=== PATIENT | female | born 1970 | race Caucasian/White ===

== ENCOUNTER 2016-12-03 22:11 | Emergency (ER) | payer SELFPAY ==
[2016-12-03 22:25] VITALS: TEMP 96.4
--- NOTE | 2016-12-03 22:37 | ED.PDOC ---
History of Present Illness - General Chief Complaint: Respiratory Problem Stated Complaint: cough and chest congestion Time Seen by Provider: 12/03/16 22:36 Source: patient Exam Limitations: no limitations Additional Information: Ms. Debbie Aden 46 y/o female with history of asthma/copd stated she started with dry cough on off for one week then yesterday had developed pleuritic chest pain during coughing episodes and when taking deep breaths.No ill contact no foreign travel.She stated did not report for work today. - History of Present Illness Timing/Duration: other - one week Cough Quality/Degree: dry cough Possible Cause: other - hx of asthma/copd Improving Factors: nothing Worsening Factors: nothing Associated Symptoms: muscle aches Respiratory Risk Factors: no cause identified Allergies/Adverse Reactions: Allergies Erythromycin Allergy (Verified 12/03/16 22:18) Hydromorphone [From Dilaudid] Allergy (Verified 12/03/16 22:18) Ketorolac Tromethamine [From Toradol] Allergy (Verified 12/03/16 22:18) Morphine Allergy (Verified 12/03/16 22:18) Penicillins Allergy (Verified 12/03/16 22:18) Sumatriptan [From Imitrex] Allergy (Verified 12/03/16 22:18) Home Medications: Ambulatory Orders Sulfamethoxazole-Trimethoprim [Bactrim Ds 800-160 mg] 2 tab PO BID #40 tab 08/02 Tramadol-Acetaminophen [Ultracet] 2 ea PO Q6HRS PRN #30 tab 08/02/16 Albuterol Inhaler [Ventolin Hfa Inhaler] 108 mcg IN QID #1 inh 12/03/16 Benzonatate Perles [Tessalon Perles] 200 mg PO BID #30 cap 12/03/16 Ciprofloxacin HCl 500 mg PO BID #14 tab 12/03/16 Review of Systems - Review of Systems Constitutional: States: no symptoms reported EENTM: States: no symptoms reported Respiratory: States: see HPI Cardiology: States: no symptoms reported Gastrointestinal/Abdominal: States: no symptoms reported Genitourinary: States: no symptoms reported Musculoskeletal: States: no symptoms reported Skin: States: no symptoms reported Neurological: States: no symptoms reported Endocrine: States: no symptoms reported Hematologic/Lymphatic: States: no symptoms reported Past Medical History (General) - Patient Medical History Hx Seizures: No Hx Stroke: No Hx Dementia: No Hx Asthma: No Hx of COPD: Yes Hx Cardiac Disorders: Yes - abnormal heart beat Hx Congestive Heart Failure: No Hx Pacemaker: No Hx Hypertension: No Hx Thyroid Disease: No Hx Diabetes: No Hx Gastroesophageal Reflux: No Hx Renal Disease: No Hx Cancer: No Hx of HIV: No Hx Hepatitis C: No Hx MRSA: No Surgical History: appendectomy, other - rotator cuffleft,, left ankle ( orif) - Vaccination History Hx Tetanus, Diphtheria Vaccination: No Hx Influenza Vaccination: No Hx Pneumococcal Vaccination: No - Social History Hx Tobacco Use: Yes - QUIT Hx Chewing Tobacco Use: No Hx Alcohol Use: No Hx Substance Use: No Hx Substance Use Treatment: No Hx Depression: No Hx Physical Abuse: No Hx Emotional Abuse: No Hx Suspected Abuse: No - Activities of Daily Living Patient Lives Alone: No - family Grooming Ability: Independent Eating (Feeding) Ability: Independent Toileting Ability: Independent - Female History Patient is a Female of Child Bearing Age (10 -59 yrs old): Yes Hx Last Menstrual Period: 12/03/16 Patient : No Family Medical History - Family History Father Living Status: Hx Family Congestive Heart Failure: Yes Hx Family Hypertension: Yes Hx Cardiac Disease: Yes Hx Family Diabetes: Yes Physical Exam - Physical Exam General Appearance: Alert, No apparent distress Eye Exam: bilateral normal ENT Exam: normal ENT inspection, hearing grossly normal, TMs normal, pharynx normal Neck: non-tender, full range of motion, supple, normal inspection Respiratory: chest non-tender, no respiratory distress, no accessory muscle use , other - coarse breath sounds Cardiovascular/Chest: normal peripheral pulses, regular rate, rhythm, no edema, no gallop, no JVD, no murmur Gastrointestinal/Abdominal: normal bowel sounds, non tender, soft, no organomegaly, other - obese Extremity: normal range of motion, non-tender, normal inspection, no pedal edema , no calf tenderness Neurologic: no motor/sensory deficits, alert, normal mood/affect, oriented x 3 Skin Exam: normal color, warm/dry Progress - Results/Orders Results/Orders: 12/04/16 09:00 [facility] Daily Laboratory Results WBC 12.9 K/mm3 (4.8-10.8) H 12/03/16 22:50 RBC 4.72 M/mm3 (4.20-5.40) 12/03/16 22:50 Hgb 14.3 gm/dL (12.0-16.0) 12/03/16 22:50 Hct 43.3 % (36.0-47.0) 12/03/16 22:50 MCV 91.7 fl (81.0-99.0) 12/03/16 22:50 MCH 30.2 pg (27.0-31.0) 12/03/16 22:50 MCHC 33.0 g/dL (33.0-37.0) 12/03/16 22:50 RDW 13.9 % (11.5-14.5) 12/03/16 22:50 Plt Count 266 K/mm3 (130-400) 12/03/16 22:50 MPV 8.9 fl (7.40-10.4) 12/03/16 22:50 Absolute Neuts (auto) 7.20 K/uL (1.8-6.8) H 12/03/16 22:50 Absolute Lymphs (auto) 4.50 K/uL (1.0-3.4) H 12/03/16 22:50 Absolute Monos (auto) 0.70 K/uL (0.2-0.8) 12/03/16 22:50 Absolute Eos (auto) 0.40 K/uL (0.0-0.4) 12/03/16 22:50 Absolute Basos (auto) 0.10 K/uL (0.0-0.1) 12/03/16 22:50 Neutrophils % 55.8 % (42.0-78.0) 12/03/16 22:50 Lymphocytes % 35.0 % (20.0-50.0) 12/03/16 22:50 Monocytes % 5.6 % (2.0-9.0) 12/03/16 22:50 Eosinophils % 2.8 % (1.0-5.0) 12/03/16 22:50 Basophils % 0.8 % (0.0-2.0) 12/03/16 22:50 - EKG/XRAY/CT XRAY: chest - no acute changes - Additional EKG/XRAY/Consults EKG #2: Sinus, no ST T wave changes - HR-91 Departure - Departure Clinical Impression: Pleuritic chest pain Bronchitis, acute Qualifiers: Bronchitis organism: unspecified organism Qualifier Code: (J20.9) Acute bronchitis, unspecified Time of Disposition: 23:12 Disposition: Discharge to Home or Self Care Condition: Good Departure Forms: ED Discharge - Pt. Copy, Patient Portal Self Enrollment Instructions: DI for Acute Bronchitis Referrals: Mary Alice Mancia, [employer] MANAGER [Primary Care Provider] - 1-2 Weeks Prescriptions: Ciprofloxacin HCl 500 mg PO BID #14 tab Benzonatate Perles [Tessalon Perles] 200 mg PO BID #30 cap Albuterol Inhaler [Ventolin Hfa Inhaler] 108 mcg IN QID #1 inh Home Medications: Ambulatory Orders Sulfamethoxazole-Trimethoprim [Bactrim Ds 800-160 mg] 2 tab PO BID #40 tab 08/02 Tramadol-Acetaminophen [Ultracet] 2 ea PO Q6HRS PRN #30 tab 08/02/16 Albuterol Inhaler [Ventolin Hfa Inhaler] 108 mcg IN QID #1 inh 12/03/16 Benzonatate Perles [Tessalon Perles] 200 mg PO BID #30 cap 12/03/16 Ciprofloxacin HCl 500 mg PO BID #14 tab 12/03/16 Additional Instructions: EXCUSE FROM WORK 12/03-04/2017;RETURN TO WORK 12/05/2016 without restrictions
[2016-12-03] MEDS ORDERED: IPRATROPIUM/ALBUTEROL 3 ML VIAL NEB ONE (22:39)
[2016-12-03] MEDS ORDERED: diphenhydrAMINE HCL 25 MG CAP PO ONE (22:40)
[2016-12-03] MEDS ORDERED: BENZONATATE PERLES 100 MG CAP PO ONE (22:40)
[2016-12-03] MEDS ORDERED: HYDROcodone 10MG/APAP 325MG 1 EA TAB PO ONE (22:41)
--- NOTE | 2016-12-03 22:58 | RAD ---
PROCEDURE: XR CHEST 1 VIEW HISTORY: cough COMPARISON: 11/29/2015 TECHNIQUE: Single projection of the chest was done. FINDINGS: The lung neri are well inflated . There are no discrete airspace infiltrates, pneumothoraces or pleural effusions. The pulmonary vascularity is normal. The cardiomediastinal contour is unremarkable . IMPRESSION: There is no acute pleural-parenchymal process seen in the imaged lung neri. 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
[2016-12-03] MEDS ORDERED: levoFLOXacin 500 MG TAB PO ONE (23:16)
[2016-12-03 23:18] VITALS: O2SAT 98
[2016-12-03 23:40] VITALS: BP 172/90
== END 2016-12-03 23:40 | disposition home or self-care (01) ==
LOC: ER 22:11
DX: J44.0 Chronic obstructive pulmonary disease with (acute) lower respiratory infection (principal); J20.9 Acute bronchitis, unspecified; R00.9 Unspecified abnormalities of heart beat; Z88.3 Allergy status to other anti-infective agents; Z88.0 Allergy status to penicillin; Z88.6 Allergy status to analgesic agent; Z79.899 Other long term (current) drug therapy; Z87.891 Personal history of nicotine dependence; R07.81 Pleurodynia
CPT/HCPCS: 36415; 71010; 85025; 93005; 94640; J7620; Q0163

== ENCOUNTER 2017-04-17 01:35 | Emergency (ER) | payer SELFPAY ==
[2017-04-17] MEDS ORDERED: IPRATROPIUM/ALBUTEROL 3 ML VIAL NEB ONE (01:54)
[2017-04-17] MEDS ORDERED: BENZONATATE PERLES 100 MG CAP PO ONE (01:54)
[2017-04-17] MEDS ORDERED: ACETAMINOPHEN 500 MG TAB PO ONE (01:55)
--- NOTE | 2017-04-17 01:58 | ED.PDOC ---
History of Present Illness - General Chief Complaint: Respiratory Problem Stated Complaint: Cough Time Seen by Provider: 04/17/17 01:49 Source: patient, RN notes reviewed, Vital Signs reviewed Exam Limitations: no limitations - History of Present Illness Comments: Patient presents with c/o of a nonproductive cough X 3 days. She is now having soreness in her lower ribs going around to her back. No SOB. Cough is keeping her up at night. She has a history of COPD and episodes of bronchitis. No fever or chills. Timing/Duration: constant - for 3 days Cough Quality/Degree: moderate, dry cough Possible Cause: frequent episodes - due to COPD Improving Factors: nothing Worsening Factors: nothing Associated Symptoms: chest pain/soreness, cough Allergies/Adverse Reactions: Allergies Erythromycin Allergy (Verified 12/03/16 22:18) Hydromorphone [From Dilaudid] Allergy (Verified 12/03/16 22:18) Ketorolac Tromethamine [From Toradol] Allergy (Verified 12/03/16 22:18) Morphine Allergy (Verified 12/03/16 22:18) Penicillins Allergy (Verified 12/03/16 22:18) Sumatriptan [From Imitrex] Allergy (Verified 12/03/16 22:18) Home Medications: Ambulatory Orders Benzonatate Perles [Tessalon Perles] 200 mg PO Q8HR PRN #30 cap 04/17/17 Review of Systems - Review of Systems Constitutional: States: no symptoms reported. Denies: chills, fever, malaise EENTM: States: no symptoms reported. Denies: nose congestion, throat pain Respiratory: States: cough. Denies: short of breath, stridor, wheezing Cardiology: States: no symptoms reported Gastrointestinal/Abdominal: States: no symptoms reported Musculoskeletal: States: other - chest wall/back soreness Skin: States: no symptoms reported Neurological: States: no symptoms reported All other Systems: No Change from Baseline Past Medical History (General) - Patient Medical History Hx Seizures: No Hx Stroke: No Hx Dementia: No Hx Asthma: No Hx of COPD: Yes Hx Cardiac Disorders: Yes - abnormal heart beat Hx Congestive Heart Failure: No Hx Pacemaker: No Hx Hypertension: No Hx Thyroid Disease: No Hx Diabetes: No Hx Gastroesophageal Reflux: No Hx Renal Disease: No Hx Cancer: No Hx of HIV: No Hx Hepatitis C: No Hx MRSA: No Surgical History: appendectomy - Vaccination History Hx Tetanus, Diphtheria Vaccination: No Hx Influenza Vaccination: No Hx Pneumococcal Vaccination: No Immunizations Up to Date: Yes - Social History Hx Tobacco Use: Yes - QUIT Hx Chewing Tobacco Use: No Hx Alcohol Use: No Hx Substance Use: No Hx Substance Use Treatment: No Hx Depression: No Hx Physical Abuse: No Hx Emotional Abuse: No Hx Suspected Abuse: No - Activities of Daily Living Hospice Agency (if applicable):: None - Female History Patient is a Female of Child Bearing Age (10 -59 yrs old): Yes Hx Last Menstrual Period: 12/03/16 Patient : No Family Medical History - Family History Father Living Status: Hx Family Congestive Heart Failure: Yes Hx Family Hypertension: Yes Hx Cardiac Disease: Yes Hx Family Diabetes: Yes Physical Exam - Physical Exam General Appearance: Alert, Comfortable, No apparent distress, Obese, Well Developed, Well Groomed, Well Hydrated, Well Nourished ENT Exam: hearing grossly normal Neck: non-tender, full range of motion, supple, normal inspection Respiratory: lungs clear, normal breath sounds, no respiratory distress, no accessory muscle use Cardiovascular/Chest: regular rate, rhythm, no edema, no gallop, no murmur Neurologic: alert, normal mood/affect, oriented x 3 Skin Exam: normal color, warm/dry Comments: Vital Signs 04/17/17 01:45 Temperature 97.5 F L Pulse Rate [ 106 H Right radial] Respiratory 20 Rate Blood Pressure 146/102 [Right Arm] O2 Sat by Pulse 96 Oximetry Progress - Progress Progress: 04/17/17 02:24 Patient is feeling better and coughing less with Duoneb treatment. Will give Solu-Medrol 125mg IM and d/c home with Rx for Tessalon Departure - Departure Clinical Impression: COPD exacerbation Time of Disposition: 02:26 Disposition: Discharge to Home or Self Care Condition: Good Departure Forms: ED Discharge - Pt. Copy, Patient Portal Self Enrollment Instructions: DI for Chronic Obstructive Pulmonary Disease Diet: resume usual diet Activity: increase activity as tolerated Referrals: Mary Alice Mancia NP [Primary Care Provider] - 1-2 Weeks Prescriptions: Benzonatate Perles [Tessalon Perles] 200 mg PO Q8HR PRN #30 cap PRN Reason: Cough Home Medications: Ambulatory Orders Benzonatate Perles [Tessalon Perles] 200 mg PO Q8HR PRN #30 cap 04/17/17
[2017-04-17] MEDS ORDERED: methylPREDNISolone SODIUM SUC 125 MG/2 ML VIAL IM ONE (02:24)
[2017-04-17 02:58] VITALS: BP 162/102; TEMP 98.2; O2SAT 96
== END 2017-04-17 02:43 | disposition home or self-care (01) ==
LOC: ER 01:35
DX: J44.1 Chronic obstructive pulmonary disease with (acute) exacerbation (principal); R00.9 Unspecified abnormalities of heart beat; Z88.0 Allergy status to penicillin; Z88.6 Allergy status to analgesic agent; Z88.3 Allergy status to other anti-infective agents; Z88.8 Allergy status to other drugs, medicaments and biological substances

== ENCOUNTER 2017-04-24 22:15 | Emergency (ER) | payer SELFPAY ==
--- NOTE | 2017-04-25 00:03 | ED.PDOC ---
History of Present Illness - General Chief Complaint: Headache Stated Complaint: headache Time Seen by Provider: 04/25/17 00:02 Source: patient Exam Limitations: no limitations - History of Present Illness Initial Comments: Patti Aden 47 y/o female with history of migraine head ache since she was 17 y/o stated that she had sharp right sided headache radiated to left temperoparietal area which started early this am and not getting better after taking 2 doses of ibuprofen.She used to take fiorinal when she has acute attacks and depakote as maintenance she stated stopped taking it since she did not have the headache the last 2 years.Had also nausea/vomiting several times. Timing/Duration: 4-6 hours Quality: moderate, achy, constant, sharp Head Injury Location: temporal Recent Head Trauma: no recent headache/trauma Improving Factors: nothing Worsening Factors: nothing Associated Symptoms: nausea/vomiting Allergies/Adverse Reactions: Allergies Erythromycin Allergy (Verified 12/03/16 22:18) Hydromorphone [From Dilaudid] Allergy (Verified 12/03/16 22:18) Ketorolac Tromethamine [From Toradol] Allergy (Verified 12/03/16 22:18) Morphine Allergy (Verified 12/03/16 22:18) Penicillins Allergy (Verified 12/03/16 22:18) Sumatriptan [From Imitrex] Allergy (Verified 12/03/16 22:18) Home Medications: Ambulatory Orders Benzonatate Perles [Tessalon Perles] 200 mg PO Q8HR PRN #30 cap 04/17/17 Ghaxegasas-Ewelolpgvizov-Bbbwz [Fioricet/Codeine] 1 cap PO BID PRN #20 cap 04/25 Divalproex Sodium [Depakote] 250 mg PO DAILY #30 tab 04/25/17 Review of Systems - Review of Systems Constitutional: States: no symptoms reported EENTM: States: no symptoms reported Respiratory: States: no symptoms reported Cardiology: States: no symptoms reported Gastrointestinal/Abdominal: States: no symptoms reported Genitourinary: States: no symptoms reported Musculoskeletal: States: no symptoms reported Skin: States: no symptoms reported Neurological: States: see HPI Past Medical History (General) - Patient Medical History Hx Seizures: No Hx Stroke: No Hx Dementia: No Hx Asthma: No Hx of COPD: Yes Hx Cardiac Disorders: Yes - abnormal heart beat Hx Congestive Heart Failure: No Hx Pacemaker: No Hx Hypertension: No Hx Thyroid Disease: No Hx Diabetes: No Hx Gastroesophageal Reflux: No Hx Renal Disease: No Hx Cancer: No Hx of HIV: No Hx Hepatitis C: No Hx MRSA: No Hx Other PMH: Yes - migraine headache Surgical History: appendectomy - left rotator cuff,,left ankle, other - Vaccination History Hx Tetanus, Diphtheria Vaccination: No Hx Influenza Vaccination: No Hx Pneumococcal Vaccination: No - Social History Hx Tobacco Use: Yes - QUIT Hx Chewing Tobacco Use: No Hx Alcohol Use: No Hx Substance Use: No Hx Substance Use Treatment: No Hx Depression: No Hx Physical Abuse: No Hx Emotional Abuse: No Hx Suspected Abuse: No - Female History Hx Last Menstrual Period: 04/07/17 Patient : No Family Medical History - Family History Father Living Status: Hx Family Congestive Heart Failure: Yes Hx Family Hypertension: Yes Hx Cardiac Disease: Yes Hx Family Diabetes: Yes Hx Family;Other: migraine headache both parents Physical Exam - Physical Exam General Appearance: Alert, Comfortable, No apparent distress, Other - speech fluent Eyes, Ears, Nose, Throat Exam: PERRL/EOMI, normal ENT inspection, TMs normal, pharynx normal Neck: non-tender, full range of motion, supple Cardiovascular/Chest: normal peripheral pulses, regular rate, rhythm, no murmur Respiratory: chest non-tender, lungs clear, normal breath sounds Gastrointestinal/Abdominal: normal bowel sounds, non tender, soft, no organomegaly Back Exam: normal inspection, no CVA tenderness, no vertebral tenderness Extremity: normal range of motion, non-tender, no pedal edema, no calf tenderness 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, 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: normal hearing, normal speech, PERRL Coordination/Gait: normal finger to nose, normal gait, negative Romberg's sign Motor/Sensory: no motor deficit, no sensory deficit, no pronator drift Skin Exam: warm/dry, normal color Lymphatic: no adenopathy Progress - Progress Progress: 04/25/17 00:30 Vital Signs Temp 97.8 F 04/25/17 00:01 Pulse 92 H 04/25/17 00:01 Resp 18 04/25/17 00:01 BP 124/80 04/25/17 00:01 Pulse Ox 97 04/25/17 00:01 Intake & Output 0704/24/17 04/25/17 06:59 18:59 06:59 Weight 185 lb Departure - Departure Clinical Impression: Migraine Qualifiers: Migraine type: unspecified Status migrainosus presence: without status migrainosus Intractability: not intractable Qualified Code(s): G43.909 - Migraine, unspecified, not intractable, without status migrainosus Time of Disposition: 00:33 Disposition: Discharge to Home or Self Care Condition: Fair Departure Forms: ED Discharge - Pt. Copy, Patient Portal Self Enrollment Instructions: Migraine Headaches (Alternative Therapy), Migraine -- Adult, DI for Migraine Referrals: Mary Alice Mancia NP [Primary Care Provider] - 1-2 Weeks Prescriptions: Mngpdfqlya-Obwdezalzknkx-Mmgtu [Fioricet/Codeine] 1 cap PO BID PRN #20 cap PRN Reason: Headache/Migraine Pain Divalproex Sodium [Depakote] 250 mg PO DAILY #30 tab Home Medications: Ambulatory Orders Benzonatate Perles [Tessalon Perles] 200 mg PO Q8HR PRN #30 cap 04/17/17 Hvjzdwcskx-Ynnrjkatachrn-Rnlwq [Fioricet/Codeine] 1 cap PO BID PRN #20 cap 04/25 Divalproex Sodium [Depakote] 250 mg PO DAILY #30 tab 04/25/17 Additional Instructions: FOLLOW UP WITH YOUR PRIMARY MD 04/28/2017 call for appointment
[2017-04-25 00:05] VITALS: BP 124/80; TEMP 97.8; O2SAT 97
[2017-04-25] MEDS ORDERED: BUTORPHANOL TARTRATE 2 MG/ML VIAL IM ONE (00:30)
[2017-04-25] MEDS ORDERED: PROMETHAZINE HCL INJ 25 MG/ML VIAL IM ONE (00:30)
[2017-04-25] MEDS ORDERED: DIVALPROEX SODIUM ER 500 MG TAB PO ONE (00:38)
== END 2017-04-25 01:35 | disposition home or self-care (01) ==
LOC: ER 22:15
DX: G43.909 Migraine, unspecified, not intractable, without status migrainosus (principal); J44.9 Chronic obstructive pulmonary disease, unspecified; R00.9 Unspecified abnormalities of heart beat; Z79.899 Other long term (current) drug therapy

== ENCOUNTER 2017-09-05 22:10 | Emergency (ER) | payer SELFPAY ==
[2017-09-05 22:23] VITALS: BP 137/87; TEMP 98.9; O2SAT 98
--- NOTE | 2017-09-05 22:47 | ED.PDOC ---
History of Present Illness - General Chief Complaint: ENT Problem Stated Complaint: SORE THROAT Time Seen by Provider: 09/05/17 22:46 Source: patient Exam Limitations: no limitations - History of Present Illness Initial Comments: Patti Aden 47 y/o female came to er with achy throat since yesterday got worse today painful to swallow.No fever no nausea/vomiting Timing/Duration: gradual, yesterday Severity: moderate EENT Location: throat Prearrival Treatment: no prearrival treatment Presenting Symptoms: achy throat Improving Factors: nothing Worsening Factors: eating Associated Symptoms: nasal congestion/drainage Allergies/Adverse Reactions: Allergies Erythromycin Allergy (Verified 12/03/16 22:18) Hydromorphone [From Dilaudid] Allergy (Verified 12/03/16 22:18) Ketorolac Tromethamine [From Toradol] Allergy (Verified 12/03/16 22:18) Morphine Allergy (Verified 12/03/16 22:18) Penicillins Allergy (Verified 12/03/16 22:18) Sumatriptan [From Imitrex] Allergy (Verified 12/03/16 22:18) Home Medications: Ambulatory Orders Benzonatate Perles [Tessalon Perles] 200 mg PO Q8HR PRN #30 cap 04/17/17 Jwkjddcgke-Rnlhfzglqpuun-Skrwq [Fioricet/Codeine] 1 cap PO BID PRN #20 cap 04/25 Divalproex Sodium [Depakote] 250 mg PO DAILY #30 tab 04/25/17 predniSONE 10 mg PO BID #7 tab 09/05/17 Review of Systems - Review of Systems Constitutional: States: no symptoms reported EENTM: States: see HPI Respiratory: States: no symptoms reported Cardiology: States: no symptoms reported Gastrointestinal/Abdominal: States: no symptoms reported All other Systems: Reviewed and Negative Past Medical History (General) - Patient Medical History Hx Seizures: No Hx Stroke: No Hx Dementia: No Hx Asthma: No Hx of COPD: Yes Hx Cardiac Disorders: Yes - abnormal heart beat Hx Congestive Heart Failure: No Hx Pacemaker: No Hx Hypertension: No Hx Thyroid Disease: No Hx Diabetes: Yes Hx Gastroesophageal Reflux: No Hx Renal Disease: No Hx Cancer: No Hx of HIV: No Hx Hepatitis C: No Hx MRSA: No Surgical History: appendectomy, other - ,rotator cuff,left ankle (orif) - Vaccination History Hx Tetanus, Diphtheria Vaccination: No Hx Influenza Vaccination: No Hx Pneumococcal Vaccination: No - Social History Hx Tobacco Use: Yes - QUIT Hx Chewing Tobacco Use: No Hx Alcohol Use: No Hx Substance Use: No Hx Substance Use Treatment: No Hx Depression: No Hx Physical Abuse: No Hx Emotional Abuse: No Hx Suspected Abuse: No - Female History Patient is a Female of Child Bearing Age (10 -59 yrs old): No Hx Last Menstrual Period: 04/07/17 Patient : No Family Medical History - Family History Father Family History: Unknown Living Status: Hx Family Congestive Heart Failure: Yes Hx Family Hypertension: Yes Hx Cardiac Disease: Yes Hx Family Diabetes: Yes Hx Family;Other: migraine headache both parents Physical Exam - Physical Exam General Appearance: Alert, No apparent distress Eye Exam: bilateral normal Nasal Exam: other - nasal congetion right nostril Throat Exam: normal mouth inspection, other - pharyngeal erythema Neck: full range of motion, supple, trachea midline Cardiovascular/Respiratory: regular rate, rhythm, no M/R/G Abdominal Exam: non-tender, no organomegaly Neurologic: no motor/sensory deficits, alert, oriented x 3 Skin Exam: normal color, warm/dry Progress - Progress Progress: 09/05/17 22:57 Last Vital Signs Temp 98.9 F 09/05/17 22:20 Pulse 96 H 09/05/17 22:20 Resp 18 09/05/17 22:20 BP 137/87 09/05/17 22:20 Pulse Ox 98 09/05/17 22:20 - Results/Orders Results/Orders: Laboratory Tests 09/05/17 22:30 Group A Strep DNA Negative Departure - Departure Clinical Impression: Nasal congestion Pharyngitis Qualifiers: Pharyngitis/tonsillitis etiology: unspecified etiology Qualified Code(s): J02.9 - Acute pharyngitis, unspecified Time of Disposition: 22:58 Disposition: Discharge to Home or Self Care Condition: Good Departure Forms: ED Discharge - Pt. Copy, Patient Portal Self Enrollment Instructions: DI for Viral Pharyngitis, Viral Pharyngitis Referrals: Mary Alice Mancia NP [Primary Care Provider] - 1-2 Weeks Prescriptions: predniSONE 10 mg PO BID #7 tab Home Medications: Ambulatory Orders Benzonatate Perles [Tessalon Perles] 200 mg PO Q8HR PRN #30 cap 04/17/17 Gfdvkwuuis-Dxubedgegbfqv-Birtv [Fioricet/Codeine] 1 cap PO BID PRN #20 cap 04/25 Divalproex Sodium [Depakote] 250 mg PO DAILY #30 tab 04/25/17 predniSONE 10 mg PO BID #7 tab 09/05/17 Additional Instructions: Mix 10 teaspoons of Benadryl liquid and 10 teaspoons of chloraseptic liquid then swish one teaspoon every 6 hours inside mouth for 10 seconds then spit out as needed for achy throat;Tylenol 500mg by mouth every 6 hours for pain as needed;Prescription sent to [facility]
[2017-09-05] MEDS ORDERED: DEXAMETHASONE INJ 4 MG/ML VIAL IM ONE (22:58)
== END 2017-09-05 23:27 | disposition home or self-care (01) ==
LOC: ER 22:10
DX: J02.9 Acute pharyngitis, unspecified (principal); R09.81 Nasal congestion; E11.9 Type 2 diabetes mellitus without complications; R00.9 Unspecified abnormalities of heart beat; Z88.0 Allergy status to penicillin; Z88.8 Allergy status to other drugs, medicaments and biological substances; Z87.891 Personal history of nicotine dependence
CPT/HCPCS: 87070; 87651; J1100

== ENCOUNTER 2017-09-24 17:56 | Emergency (ER) | payer SELFPAY ==
[2017-09-24] MEDS ORDERED: SODIUM CHLORIDE 0.9% 1000ML 1,000 ML IVS ONE (22:15)
[2017-09-24 22:20] VITALS: O2SAT 97
[2017-09-24] MEDS ORDERED: OXYMETAZOLINE NASAL SPRAY 15 ML BTTL BNAS PRN (22:59)
--- NOTE | 2017-09-24 23:33 | CT ---
EXAM DESCRIPTION: Abdomen/Pelvis w/Contrast CLINICAL HISTORY: 47 years Female periumbilical pain/tenderness COMPARISON: 12/05/2014. TECHNIQUE: Contiguous axial images obtained through the abdomen and pelvis following IV contrast. Reformatted images obtained. This exam was performed according to our department optimization program which includes automated exposure control, adjustment of the mA and/or kv according to patient size and/or use of iterative reconstruction technique. FINDINGS: The liver is enlarged measuring 20 cm. The spleen and pancreas appear unremarkable. No adrenal masses. The kidneys appear unremarkable. No hydronephrosis. The gallbladder is visualized. No aneurysmal dilatation of the aorta. No bowel obstruction. The appendix is nonvisualized. There is a ventral periumbilical hernia containing omental fat. This is larger than on the previous study. The herniated fat and the immediately adjacent omentum demonstrates a small amount of stranding. The possibility of strangulation or incarceration is not excluded. IMPRESSION: Periumbilical fat-containing hernia with inflammatory changes in the herniated and adjacent omental fat. This may be the cause of the patient's pain. The possibility of strangulation or incarceration cannot be excluded on the basis of CT No additional evidence of acute process Mild hepatomegaly Electronically signed by: Ivy Monique 09/24/2017 11:32 PM SURVEILLANCE SYSTEM MONITOR
--- NOTE | 2017-09-25 00:08 | ED.PDOC ---
History of Present Illness - General Chief Complaint: Abdominal Pain Stated Complaint: abd pains Time Seen by Provider: 09/24/17 22:01 Information Source: patient, RN notes reviewed, Vital Signs reviewed Additional Information: Woke up with pain in periumbilical region. 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 Worsening Factors: movement Associated Symptoms: swelling/mass in abdomen Review of Systems - Review of Systems Constitutional: States: no symptoms reported EENTM: States: no symptoms reported Respiratory: States: no symptoms reported Cardiology: States: no symptoms reported Gastrointestinal/Abdominal: States: see HPI Genitourinary: States: no symptoms reported Musculoskeletal: States: no symptoms reported Skin: States: no symptoms reported Neurological: States: no symptoms reported Endocrine: States: no symptoms reported Hematologic/Lymphatic: States: no symptoms reported Past Medical History (General) - Patient Medical History Hx Seizures: No Hx Stroke: No Hx Dementia: No Hx Asthma: No Hx of COPD: Yes Hx Cardiac Disorders: Yes - abnormal heart beat Hx Congestive Heart Failure: No Hx Pacemaker: No Hx Hypertension: No Hx Thyroid Disease: No Hx Diabetes: Yes Hx Gastroesophageal Reflux: No Hx Renal Disease: No Hx Cancer: No Hx of HIV: No Hx Hepatitis C: No Hx MRSA: No Surgical History: appendectomy, other - Vaccination History Hx Tetanus, Diphtheria Vaccination: No Hx Influenza Vaccination: No Hx Pneumococcal Vaccination: No - Social History Hx Tobacco Use: Yes - QUIT Hx Chewing Tobacco Use: No Hx Alcohol Use: No Hx Substance Use: No Hx Substance Use Treatment: No Hx Depression: No Hx Physical Abuse: No Hx Emotional Abuse: No Hx Suspected Abuse: No - Female History Hx Last Menstrual Period: 04/07/17 Patient : No Family Medical History - Family History Father Family History: Unknown Living Status: Hx Family Congestive Heart Failure: Yes Hx Family Hypertension: Yes Hx Cardiac Disease: Yes Hx Family Diabetes: Yes Hx Family;Other: migraine headache both parents Physical Exam - Physical Exam General Appearance: No apparent distress - at rest. Some tenderness with exam., Obese Eyes, Ears, Nose, Throat Exam: PERRL/EOMI, normal ENT inspection, pharynx normal Neck: non-tender, full range of motion, supple, normal inspection Respiratory: no respiratory distress, no accessory muscle use Cardiovascular/Chest: regular rate, rhythm Gastrointestinal/Abdominal: soft, tenderness - periumbilical region Back Exam: normal inspection Extremity: normal range of motion Neurologic: hand former II-XII nml as tested, alert Skin Exam: normal color Lymphatic: no adenopathy Progress - Progress Progress: 09/25/17 00:39 Pt with ventral hernia. Normal lactic acid and patient without evidence of sepsis at this time making strangulation less likely. Patient stable for discharge home with strict return precautions and guidance to call General Surgeon's office in am to arrange for further evaluation and management. - Results/Orders Results/Orders: CT Abdomen/Pelvis Report: FINDINGS: The liver is enlarged measuring 20 cm. The spleen and pancreas appear unremarkable. No adrenal masses. The kidneys appear unremarkable. No hydronephrosis. The gallbladder is visualized. No aneurysmal dilatation of the aorta. No bowel obstruction. The appendix is nonvisualized. There is a ventral periumbilical hernia containing omental fat. This is larger than on the previous study. The herniated fat and the immediately adjacent omentum demonstrates a small amount of stranding. The possibility of strangulation or incarceration is not excluded. IMPRESSION: Periumbilical fat- containing hernia with inflammatory changes in the herniated and adjacent omental fat. This may be the cause of the patient's pain. The possibility of strangulation or incarceration cannot be excluded on the basis of CT No additional evidence of acute process Mild hepatomegaly 09/24/17 22:14 Hold Metformin x 48Hrs [id number] 09/25/17 00:31 Acetamin W/Cod #3 (ER Disp) #6 [Tylenol w/CODEINE #3 (ER Dispense) #6 tablets] 1 ea PO Q4H PRN Laboratory Results - last 24 hr 09/24/17 09/24/17 09/24/17 00:15 22:46 22:46 WBC 18.3 H RBC 5.01 Hgb 15.1 Hct 45.7 MCV 91.2 MCH 30.1 MCHC 33.0 RDW 14.6 H Plt Count 334 MPV 8.7 Absolute Neuts (auto) 11.70 H Absolute Lymphs (auto) 5.00 H Absolute Monos (auto) 1.00 H Absolute Eos (auto) 0.50 H Absolute Basos (auto) 0.20 H Neutrophils % 63.8 Lymphocytes % 27.5 Monocytes % 5.2 Eosinophils % 2.5 Basophils % 1.0 Sodium 139 Potassium 4.0 Chloride 105 Carbon Dioxide 24 Anion Gap 14.0 BUN 13 Creatinine 0.76 BUN/Creatinine Ratio 17.1 Random Glucose 83 Serum Osmolality 276.8 Lactic Acid 1.1 Calcium 9.0 Total Bilirubin 0.3 AST 40 ALT 66 H Alkaline Phosphatase 90 Serum Total Protein 7.7 Albumin 3.9 Globulin 3.8 H Albumin/Globulin Ratio 1.0 L 09/24/17 22:10 Temperature 97.6 F Pulse Rate [ 101 H left] Respiratory 18 Rate Blood Pressure 154/87 [left] O2 Sat by Pulse 97 Oximetry Departure - Departure Clinical Impression: Umbilical hernia Qualifiers: Obstruction and gangrene presence: without obstruction or gangrene Qualified Code(s): K42.9 - Umbilical hernia without obstruction or gangrene Time of Disposition: 00:49 Disposition: Discharge to Home or Self Care Condition: Fair Departure Forms: ED Discharge - Pt. Copy, Patient Portal Self Enrollment Instructions: DI for Ventral Hernia Referrals: Quoc Razo MD [Active Staff] - 1-2 Days Home Medications: Ambulatory Orders Benzonatate Perles [Tessalon Perles] 200 mg PO Q8HR PRN #30 cap 04/17/17 Oenxzugzep-Pxffnlbejdqsc-Uvylh [Fioricet/Codeine] 1 cap PO BID PRN #20 cap 04/25 Divalproex Sodium [Depakote] 250 mg PO DAILY #30 tab 04/25/17 predniSONE 10 mg PO BID #7 tab 09/05/17 Additional Instructions: Call Dr. Razo's office for an appointment to follow-up regarding hernia. Return to ER if condition worsens - severe pain, fever.
[2017-09-25] MEDS ORDERED: ACETAMINOPHEN W/COD #3 TAB (ER Disp) PO PRN (00:31)
[2017-09-25 01:07] VITALS: BP 124/87; TEMP 98.3
== END 2017-09-25 01:07 | disposition home or self-care (01) ==
LOC: ER 17:56
DX: K42.9 Umbilical hernia without obstruction or gangrene (principal); J44.9 Chronic obstructive pulmonary disease, unspecified; E11.9 Type 2 diabetes mellitus without complications; Z87.891 Personal history of nicotine dependence
CPT/HCPCS: 36415; 74177; 80053; 83605; 85025; J7030

== ENCOUNTER 2017-09-26 12:44 | Emergency (ER) | payer SELFPAY ==
[2017-09-26 12:59] VITALS: TEMP 97.2
[2017-09-26] MEDS ORDERED: fentaNYL CITRATE INJ 50 MCG/ML AMP IV ONE ×2 (13:22→13:54)
--- NOTE | 2017-09-26 13:25 | ED.PDOC ---
History of Present Illness - General Chief Complaint: Abdominal Pain Stated Complaint: hernia pain Time Seen by Provider: 09/26/17 13:07 Information Source: patient, family Exam Limitations: no limitations - History of Present Illness Initial Comments: SHE WAS HERE TWO DAYS AGO AND NOTED TO HAVE HAVE AN UMBILICAL HERNIA. SHE HAS BEEN AFEBRILE BUT CONTINUES WITH PERIUMBILICAL PAIN. NOW SHE HAS DEVELOPED A CELLULITIS AROUND THE NAVEL. THE PATIENT VOICES THAT SHE HAS AN APPOINTMENT WITH DR. GREWAL IN THE NEAR FUTURE. Abdominal Pain Onset Location: periumbilical Quality: moderate Timing/Duration: 7-24 hours Improving Factors: nothing Worsening Factors: nothing Associated Symptoms: denies symptoms Review of Systems - Review of Systems Constitutional: States: no symptoms reported EENTM: States: no symptoms reported Respiratory: States: no symptoms reported Cardiology: States: no symptoms reported Gastrointestinal/Abdominal: States: abdominal pain, nausea Musculoskeletal: States: no symptoms reported Skin: States: change in color, rash Neurological: States: no symptoms reported Endocrine: States: no symptoms reported Hematologic/Lymphatic: States: no symptoms reported All other Systems: Reviewed and Negative Past Medical History (General) - Patient Medical History Hx Seizures: No Hx Stroke: No Hx Dementia: No Hx Asthma: No Hx of COPD: Yes Hx Cardiac Disorders: Yes - abnormal heart beat Hx Congestive Heart Failure: No Hx Pacemaker: No Hx Hypertension: No Hx Thyroid Disease: No Hx Diabetes: Yes Hx Gastroesophageal Reflux: No Hx Renal Disease: No Hx Cancer: No Hx of HIV: No Hx Hepatitis C: No Hx MRSA: No Surgical History: appendectomy - Vaccination History Hx Tetanus, Diphtheria Vaccination: No Hx Influenza Vaccination: No Hx Pneumococcal Vaccination: No - Social History Hx Tobacco Use: Yes Hx Chewing Tobacco Use: No Hx Alcohol Use: No Hx Substance Use: No Hx Substance Use Treatment: No Hx Depression: No Hx Physical Abuse: No Hx Emotional Abuse: No Hx Suspected Abuse: No - Female History Patient is a Female of Child Bearing Age (10 -59 yrs old): Yes Hx Last Menstrual Period: 04/07/17 Patient : No Family Medical History - Family History Father Family History: Unknown Living Status: Hx Family Congestive Heart Failure: Yes Hx Family Hypertension: Yes Hx Cardiac Disease: Yes Hx Family Diabetes: Yes Hx Family;Other: migraine headache both parents Physical Exam - Physical Exam General Appearance: Alert, Anxious, Obvious distress, Well Developed, Well Hydrated, Well Nourished Eyes, Ears, Nose, Throat Exam: PERRL/EOMI, normal ENT inspection, TMs normal, pharynx normal Neck: non-tender, full range of motion, supple Respiratory: chest non-tender, lungs clear, normal breath sounds, no respiratory distress, no accessory muscle use, respiratory distress Cardiovascular/Chest: normal peripheral pulses, regular rate, rhythm, no edema, no gallop, no JVD, no murmur Peripheral Pulses: No deficit Gastrointestinal/Abdominal: soft, no organomegaly, no pulsatile mass, tenderness , hernia - SHE HAS S SMALL HERNIA-SUPRAUMBILICAL AND HAS CIRCUMFERENTIAL ERYTHEMA THAT IS WARM TO TOUCH Rectal Exam: deferred Back Exam: normal inspection Neurologic: no motor/sensory deficits, alert, normal mood/affect, oriented x 3 Lymphatic: no adenopathy, other - THE AFOREMENTIONED CELLULTIS AROUND THE UMBILICUS. Progress - Results/Orders Results/Orders: LAB IS REPORTED AND THE WBC IS NOW 13,000, DOWN FROM TWO DAYS AGO (18,000). I ALSO REVIEWED THE CT ABDOMEN AND IT SEEMS THAT THIS IS AN UMBILICAL HERNIA THAT CONTAINS OMENTUM. I HAVE CALLED DR. CASTANEDA AND DISCUSSED THE CASE IN DETAIL. IT WAS CONCLUDED TO TREAT THIS PATIENT AN OUTPATIENT, PROVIDED THAT SHE IS ABLE TO TAKE HER ANTIBIOTIC AND THE PAIN MEDS. THE PATIENT HAS AN APPOINTMENT NEXT FRIDAY WITH DR. CASTANEDA. SHE HAS BEEN REMINDED TO RETURN TO THE ED IS THE CONDITION WORSENS. Departure - Departure Clinical Impression: Umbilical hernia Qualifiers: Obstruction and gangrene presence: without obstruction or gangrene Qualified Code(s): K42.9 - Umbilical hernia without obstruction or gangrene Cellulitis Qualifiers: Site of cellulitis of trunk: abdominal wall Time of Disposition: 14:44 Disposition: Discharge to Home or Self Care Condition: Fair Departure Forms: ED Discharge - Pt. Copy, Patient Portal Self Enrollment Instructions: DI for Abdominal Pain-Adult Diet: full liquid diet Activity: increase activity as tolerated Referrals: Mary Alice Mancia NP [Primary Care Provider] - 1-2 Weeks Prescriptions: Acetaminophen W/ Codeine [Tylenol W/ CODEINE #3] 1 ea PO Q6HR #20 Clindamycin HCl 300 mg PO Q6HR #40 cap Home Medications: Ambulatory Orders Benzonatate Perles [Tessalon Perles] 200 mg PO Q8HR PRN #30 cap 07/20/17 Vcilgdbhuo-Nitnodafnwkee-Aqjvv [Fioricet/Codeine] 1 cap PO BID PRN #20 cap 04/25 Divalproex Sodium [Depakote] 250 mg PO DAILY #30 tab 04/25/17 predniSONE 10 mg PO BID #7 tab 09/05/17 Acetaminophen W/ Codeine [Tylenol W/ CODEINE #3] 1 ea PO Q6HR #20 09/26/17 Clindamycin HCl 300 mg PO Q6HR #40 cap 09/26/17
[2017-09-26] MEDS ORDERED: CLINDAMYCIN IV 900MG 900 MG in PREMIX BAG 1 BAG IVPB ONE (14:38)
[2017-09-26] MEDS ORDERED: CLINDAMYCIN IV 900MG 50 ML IVPB ONE (14:40)
[2017-09-26 15:12] VITALS: BP 144/89; O2SAT 97
== END 2017-09-26 15:12 | disposition home or self-care (01) ==
LOC: ER 12:44
DX: K42.9 Umbilical hernia without obstruction or gangrene (principal); L03.311 Cellulitis of abdominal wall; J44.9 Chronic obstructive pulmonary disease, unspecified; E11.9 Type 2 diabetes mellitus without complications; R00.9 Unspecified abnormalities of heart beat; Z87.891 Personal history of nicotine dependence
CPT/HCPCS: 36415; 80053; 85025; 87040; J3010; J3490

== ENCOUNTER 2017-10-04 18:25 | Emergency (ER) | payer SELFPAY ==
[2017-10-04 19:32] VITALS: O2SAT 96
--- NOTE | 2017-10-04 21:02 | ED.PDOC ---
History of Present Illness - General Chief Complaint: Abdominal Pain Stated Complaint: hernia pain, N/V Time Seen by Provider: 10/04/17 21:01 Source: patient Exam Limitations: no limitations Additional Information: PT HAD UMBILICAL HERNIA DX'D 09/24/2017. CT PERFORMED WHICH SHOWED UMBILICAL HERNIA WITH POSSIBLE INCARCERATION AND WBC 18. WAS SEEN AGAIN 09/26 WITH REDNESS AND CELLULITIS TO THE ABDOMINAL WALL. STARTED ON ABX. STATES SHE'S NO BETTER. - History of Present Illness Timing/Duration: other - 2 WEEKS Severity: moderate Improving Factors: nothing Worsening Factors: nothing Associated Symptoms: denies symptoms Allergies/Adverse Reactions: Allergies Erythromycin Allergy (Verified 10/04/17 19:32) Hydromorphone [From Dilaudid] Allergy (Verified 10/04/17 19:32) Ketorolac Tromethamine [From Toradol] Allergy (Verified 10/04/17 19:32) Morphine Allergy (Verified 10/04/17 19:32) Penicillins Allergy (Verified 10/04/17 19:32) Sumatriptan [From Imitrex] Allergy (Verified 10/04/17 19:32) Home Medications: Ambulatory Orders Benzonatate Perles [Tessalon Perles] 200 mg PO Q8HR PRN #30 cap 04/17/17 Azxkgukxeg-Zujwomnynmzcy-Obhjx [Fioricet/Codeine] 1 cap PO BID PRN #20 cap 04/25 Divalproex Sodium [Depakote] 250 mg PO DAILY #30 tab 04/25/17 predniSONE 10 mg PO BID #7 tab 09/05/17 Acetaminophen W/ Codeine [Tylenol W/ CODEINE #3] 1 ea PO Q6HR #20 09/26/17 Clindamycin HCl 300 mg PO Q6HR #40 cap 09/26/17 Acetaminophen W/ Codeine [Tylenol W/ CODEINE #3] 1 ea PO Q6HR PRN #24 10/04/17 Review of Systems - Review of Systems Constitutional: Denies: chills, fever EENTM: States: no symptoms reported Respiratory: States: no symptoms reported Cardiology: States: no symptoms reported Gastrointestinal/Abdominal: States: abdominal pain, nausea. Denies: diarrhea, vomiting Genitourinary: States: no symptoms reported Musculoskeletal: States: no symptoms reported Skin: States: no symptoms reported Neurological: States: no symptoms reported Endocrine: States: no symptoms reported Hematologic/Lymphatic: States: no symptoms reported Past Medical History (General) - Patient Medical History Hx Seizures: No Hx Stroke: No Hx Dementia: No Hx Asthma: No Hx of COPD: Yes Hx Cardiac Disorders: Yes - abnormal heart beat Hx Congestive Heart Failure: No Hx Pacemaker: No Hx Hypertension: No Hx Thyroid Disease: No Hx Diabetes: Yes Hx Gastroesophageal Reflux: No Hx Renal Disease: No Hx Cancer: No Hx of HIV: No Hx Hepatitis C: No Hx MRSA: No Surgical History: appendectomy - Vaccination History Hx Tetanus, Diphtheria Vaccination: No Hx Influenza Vaccination: No Hx Pneumococcal Vaccination: No - Social History Hx Tobacco Use: Yes Hx Chewing Tobacco Use: No Hx Alcohol Use: No Hx Substance Use: No Hx Substance Use Treatment: No Hx Depression: No Hx Physical Abuse: No Hx Emotional Abuse: No Hx Suspected Abuse: No - Female History Hx Last Menstrual Period: 04/07/17 Patient : No Family Medical History - Family History Father Family History: Unknown Living Status: Hx Family Congestive Heart Failure: Yes Hx Family Hypertension: Yes Hx Cardiac Disease: Yes Hx Family Diabetes: Yes Hx Family;Other: migraine headache both parents Physical Exam - Physical Exam General Appearance: Obese, Other - UNCOMFORTABLE, NAD Eye Exam: bilateral normal Ears, Nose, Throat: normal ENT inspection, normal pharynx Neck: non-tender, supple Respiratory: lungs clear, normal breath sounds Cardiovascular/Chest: regular rate, rhythm, no murmur Gastrointestinal/Abdominal: normal bowel sounds, no organomegaly, other - MORBIDLY OBESE, HERNIA PALPATED SUPRAUMBILICAL AREA, MOD TTP, NO ABDOMINAL WALL REDNESS, DIFFICULT TO ASSESS BUT FEELS FIRM AND NON REDUCABLE. Back Exam: normal inspection, no CVA tenderness Extremity: normal range of motion, normal inspection Neurologic: alert, normal mood/affect Skin Exam: normal color, warm/dry Lymphatic: no adenopathy Progress - Progress Progress: 10/04/17 22:59 PAIN IS BETTER, VSS - EKG/XRAY/CT CT: ABDOMEN: FAT CONTAINING HERNIA, STRANDING HAS RESOLVED, NO INCARCERATION Departure - Departure Clinical Impression: Umbilical hernia Qualifiers: Obstruction and gangrene presence: without obstruction or gangrene Qualified Code(s): K42.9 - Umbilical hernia without obstruction or gangrene Time of Disposition: 23:02 Disposition: Discharge to Home or Self Care Condition: Good Departure Forms: ED Discharge - Pt. Copy, Patient Portal Self Enrollment Instructions: DI for Abdominal Pain-Adult Referrals: Mary Alice Mancia NP [Primary Care Provider] - 1-2 Weeks Prescriptions: Acetaminophen W/ Codeine [Tylenol W/ CODEINE #3] 1 ea PO Q6HR PRN #24 PRN Reason: Pain Home Medications: Ambulatory Orders Benzonatate Perles [Tessalon Perles] 200 mg PO Q8HR PRN #30 cap 04/17/17 Bxdpwjcwyg-Qdsglipamnujo-Omgys [Fioricet/Codeine] 1 cap PO BID PRN #20 cap 04/25 Divalproex Sodium [Depakote] 250 mg PO DAILY #30 tab 04/25/17 predniSONE 10 mg PO BID #7 tab 09/05/17 Acetaminophen W/ Codeine [Tylenol W/ CODEINE #3] 1 ea PO Q6HR #20 09/26/17 Clindamycin HCl 300 mg PO Q6HR #40 cap 09/26/17 Acetaminophen W/ Codeine [Tylenol W/ CODEINE #3] 1 ea PO Q6HR PRN #24 10/04/17
[2017-10-04] MEDS ORDERED: PROMETHAZINE HCL INJ 25 MG/ML VIAL ONE (21:36)
[2017-10-04] MEDS ORDERED: SODIUM CHLORIDE 0.9% 50ML 50 ML ONE (21:37)
[2017-10-04] MEDS: fentaNYL CITRATE INJ 50 MCG/ML AMP IV ONE (21:55)
[2017-10-04] MEDS: PROMETHAZINE HCL INJ 12.5 MG in SODIUM CHLORIDE 0.9% 50ML 50 ML IVPB ONE (21:55)
--- NOTE | 2017-10-04 22:20 | CT ---
EXAM DESCRIPTION: Abdoment/Pelvis w/o Contrast CLINICAL HISTORY: INCARCERATED UMBILICAL HERNIA COMPARISON: None Available TECHNIQUE: Contiguous axial images of the abdomen and pelvis were obtained followed by reconstruction images. This exam was performed according to our departmental dose-optimization program, which includes automated exposure control, adjustment of the mA and/or kV according to patient size and/or use of iterative reconstruction technique. FINDINGS: There is atherosclerosis. There is an umbilical hernia with fatty component only. The liver, spleen, pancreas and kidneys are within normal limits. There is no hydronephrosis or renal stones. The gallbladder is unremarkable by CT criteria. Adrenal glands are within normal limits. Aorta is of normal caliber and tapering. There is no free fluid in the abdomen or pelvis. There is no bowel obstruction. There is no stranding of the mesenteric fat to suggest an inflammatory response. The appendix was not visualized. There is no pericecal inflammation. IMPRESSION: No acute intra-abdominal abnormality. Umbilical hernia with fatty component only. Electronically signed by: Jed Abbott MD 10/04/2017 10:19 PM [facility]
[2017-10-05 00:36] VITALS: BP 155/77; TEMP 97.9
== END 2017-10-05 00:36 | disposition home or self-care (01) ==
LOC: ER 18:25
DX: K42.9 Umbilical hernia without obstruction or gangrene (principal); Z87.891 Personal history of nicotine dependence; J44.9 Chronic obstructive pulmonary disease, unspecified; E11.9 Type 2 diabetes mellitus without complications; I49.9 Cardiac arrhythmia, unspecified
CPT/HCPCS: 36415; 74176; 80053; 85025; A4216; J2550; J3010

== ENCOUNTER 2017-10-15 22:44 | Emergency (ER) | payer SELFPAY ==
--- NOTE | 2017-10-15 22:55 | ED.PDOC ---
History of Present Illness - General Chief Complaint: Skin/Abrasion/Tear Stated Complaint: drainage surgical site Time Seen by Provider: 10/15/17 22:53 Source: patient Exam Limitations: no limitations - History of Present Illness Initial Comments: Patti Aden 41 y/o female had recent laparoscopic surgery 10/09/2017 for umbilical hernia repair and noted some purplish drainage incision site. Denies fever ,chills or redness on the area.Had good bowel movement .No dysuria or/ hematuria. Timing/Duration: this morning Severity: mild Location: torso Improving Factors: nothing, eating Associated Symptoms: denies symptoms, other - see hpi Allergies/Adverse Reactions: Allergies Erythromycin Allergy (Verified 10/15/17 23:04) Hydromorphone [From Dilaudid] Allergy (Verified 10/15/17 23:04) Ketorolac Tromethamine [From Toradol] Allergy (Verified 10/15/17 23:04) Morphine Allergy (Verified 10/15/17 23:04) Penicillins Allergy (Verified 10/15/17 23:04) Sumatriptan [From Imitrex] Allergy (Verified 10/15/17 23:04) Home Medications: Ambulatory Orders Benzonatate Perles [Tessalon Perles] 200 mg PO Q8HR PRN #30 cap 04/17/17 Uwnvsqopfk-Doydwqowowsjj-Lraet [Fioricet/Codeine] 1 cap PO BID PRN #20 cap 04/25 Divalproex Sodium [Depakote] 250 mg PO DAILY #30 tab 04/25/17 predniSONE 10 mg PO BID #7 tab 09/05/17 Acetaminophen W/ Codeine [Tylenol W/ CODEINE #3] 1 ea PO Q6HR #20 09/26/17 Clindamycin HCl 300 mg PO Q6HR #40 cap 09/26/17 Acetaminophen W/ Codeine [Tylenol W/ CODEINE #3] 1 ea PO Q6HR PRN #24 10/04/17 Review of Systems - Review of Systems Constitutional: States: no symptoms reported EENTM: States: no symptoms reported Respiratory: States: no symptoms reported Cardiology: States: no symptoms reported Skin: States: see HPI All other Systems: Reviewed and Negative, No Change from Baseline Past Medical History (General) - Patient Medical History Hx Seizures: No Hx Stroke: No Hx Dementia: No Hx Asthma: No Hx of COPD: Yes Hx Cardiac Disorders: Yes - abnormal heart beat Hx Congestive Heart Failure: No Hx Pacemaker: No Hx Hypertension: No Hx Thyroid Disease: No Hx Diabetes: Yes Hx Gastroesophageal Reflux: No Hx Renal Disease: No Hx Cancer: No Hx of HIV: No Hx Hepatitis C: No Hx MRSA: No Hx Other PMH: Yes - migraine headaches Surgical History: appendectomy, other - recent umbilical hernia repair,left rotator cuff ,left ankle - Vaccination History Hx Tetanus, Diphtheria Vaccination: No Hx Influenza Vaccination: No Hx Pneumococcal Vaccination: No - Social History Hx Tobacco Use: Yes Hx Chewing Tobacco Use: No Hx Alcohol Use: No Hx Substance Use: No Hx Substance Use Treatment: No Hx Depression: No Hx Physical Abuse: No Hx Emotional Abuse: No Hx Suspected Abuse: No - Female History Hx Last Menstrual Period: 04/07/17 Patient : No Family Medical History - Family History Father Family History: Unknown Living Status: Hx Family Congestive Heart Failure: Yes Hx Family Hypertension: Yes Hx Cardiac Disease: Yes Hx Family Diabetes: Yes Hx Family;Other: migraine headache both parents Physical Exam - Physical Exam General Appearance: Alert, Comfortable, No apparent distress Eyes, Ears, Nose, Throat Exam: normal ENT inspection Neck: non-tender, supple Cardiovascular/Chest: normal peripheral pulses, regular rate, rhythm, no murmur Respiratory: lungs clear, normal breath sounds Gastrointestinal/Abdominal: non tender, soft Back Exam: no CVA tenderness Extremity: no pedal edema, no calf tenderness Neurologic: alert, oriented x 3 Skin Exam: warm/dry, normal color Skin Problem Location: torso Skin Character: other - recent umbilical hernia repair-incision site clear no erythema ,non tender mild drainage seroma Progress - Progress Progress: 10/15/17 23:19 Last Vital Signs Temp 98.9 F 10/15/17 23:05 Pulse 104 H 10/15/17 23:05 Resp 20 10/15/17 23:05 BP 144/99 10/15/17 23:05 Pulse Ox 96 10/15/17 23:05 Departure - Departure Clinical Impression: Seroma, postoperative Qualifiers: Surgical complication system/body Area: skin Procedure type: non-dermatologic Qualified Code(s): L76.34 - Postprocedural seroma of skin and subcutaneous tissue following other procedure Time of Disposition: 23:20 Disposition: Discharge to Home or Self Care Condition: Good Departure Forms: ED Discharge - Pt. Copy, Patient Portal Self Enrollment Instructions: DI for Wound Infection Referrals: Mary Alice Mancia NP [Primary Care Provider] - 1-2 Weeks Home Medications: Ambulatory Orders Benzonatate Perles [Tessalon Perles] 200 mg PO Q8HR PRN #30 cap 04/17/17 Ayvqlfezco-Hotngpmgbkljz-Mywhy [Fioricet/Codeine] 1 cap PO BID PRN #20 cap 04/25 Divalproex Sodium [Depakote] 250 mg PO DAILY #30 tab 04/25/17 predniSONE 10 mg PO BID #7 tab 09/05/17 Acetaminophen W/ Codeine [Tylenol W/ CODEINE #3] 1 ea PO Q6HR #20 09/26/17 Clindamycin HCl 300 mg PO Q6HR #40 cap 09/26/17 Acetaminophen W/ Codeine [Tylenol W/ CODEINE #3] 1 ea PO Q6HR PRN #24 10/04/17 Additional Instructions: Keep appointment with surgeon 10/20/2017
[2017-10-15 23:44] VITALS: BP 141/84; TEMP 98.2; O2SAT 92
== END 2017-10-15 23:45 | disposition home or self-care (01) ==
LOC: ER 22:44
DX: L76.34 Postprocedural seroma of skin and subcutaneous tissue following other procedure (principal); J44.9 Chronic obstructive pulmonary disease, unspecified; Z87.891 Personal history of nicotine dependence; E11.9 Type 2 diabetes mellitus without complications

== ENCOUNTER 2018-01-13 17:19 | Emergency (ER) | payer SELFPAY ==
--- NOTE | 2018-01-13 19:28 | ED.PDOC ---
History of Present Illness - General Chief Complaint: ENT Problem Stated Complaint: sore throat Time Seen by Provider: 01/13/18 18:35 Source: patient, RN notes reviewed, Vital Signs reviewed - History of Present Illness Timing/Duration: gradual, this morning EENT Location: ear (R), nose, throat Improving Factors: nothing Worsening Factors: nothing Associated Symptoms: cough, nasal congestion/drainage, sinus infection, sore throat Allergies/Adverse Reactions: Allergies Erythromycin Allergy (Verified 10/15/17 23:04) Hydromorphone [From Dilaudid] Allergy (Verified 10/15/17 23:04) Ketorolac Tromethamine [From Toradol] Allergy (Verified 10/15/17 23:04) Morphine Allergy (Verified 10/15/17 23:04) Penicillins Allergy (Verified 10/15/17 23:04) Sumatriptan [From Imitrex] Allergy (Verified 10/15/17 23:04) Home Medications: Ambulatory Orders Acetaminophen W/ Codeine [Tylenol W/ CODEINE #3] 1 ea PO Q6HR #20 09/26/17 Symbicort 160-4.5 Mcg/Act 01/13/18 levoFLOXacin [Levaquin] 500 mg PO DAILY 5 Days #5 tab 01/13/18 Review of Systems - Review of Systems Constitutional: States: no symptoms reported EENTM: States: ear pain, nose pain, nose congestion, throat pain Respiratory: States: cough Cardiology: States: no symptoms reported Gastrointestinal/Abdominal: States: no symptoms reported Genitourinary: States: no symptoms reported Musculoskeletal: States: no symptoms reported Skin: States: no symptoms reported Past Medical History (General) - Patient Medical History Hx Seizures: No Hx Stroke: No Hx Dementia: No Hx Asthma: No Hx of COPD: Yes Hx Cardiac Disorders: Yes - abnormal heart beat Hx Congestive Heart Failure: No Hx Pacemaker: No Hx Hypertension: No Hx Thyroid Disease: No Hx Diabetes: Yes Hx Gastroesophageal Reflux: No Hx Renal Disease: No Hx Cancer: No Hx of HIV: No Hx Hepatitis C: No Hx MRSA: No - Vaccination History Hx Tetanus, Diphtheria Vaccination: Yes Hx Influenza Vaccination: Yes Hx Pneumococcal Vaccination: No - Social History Hx Tobacco Use: Yes Hx Chewing Tobacco Use: No Hx Alcohol Use: No Hx Substance Use: No Hx Substance Use Treatment: No Hx Depression: No Hx Physical Abuse: No Hx Emotional Abuse: No Hx Suspected Abuse: No - Female History Patient is a Female of Child Bearing Age (10 -59 yrs old): Yes Hx Last Menstrual Period: 04/07/17 Patient : No Family Medical History - Family History Father Family History: Unknown Living Status: Hx Family Congestive Heart Failure: Yes Hx Family Hypertension: Yes Hx Cardiac Disease: Yes Hx Family Diabetes: Yes Hx Family;Other: migraine headache both parents Physical Exam - Physical Exam General Appearance: Alert, Comfortable, Well Developed, Well Groomed, Well Hydrated, Well Nourished Eye Exam: bilateral normal Ear Exam: right ear: TM red, TM bulging Nasal Exam: discharge, sinus tenderness Throat Exam: normal mouth inspection Neck: non-tender, full range of motion Cardiovascular/Respiratory: regular rate, rhythm, no M/R/G, normal peripheral pulses Abdominal Exam: non-tender, no organomegaly, no hernia Neurologic: no motor/sensory deficits, alert Skin Exam: normal color Progress - Progress Progress: 01/13/18 19:33 abx given for otitis media Departure - Departure Clinical Impression: Otitis media Qualifiers: Otitis media type: suppurative Chronicity: acute Laterality: right Recurrence: not specified as recurrent Spontaneous tympanic membrane rupture: without spontaneous rupture Qualified Code(s): H66.001 - Acute suppurative otitis media without spontaneous rupture of ear drum, right ear Sinusitis Qualifiers: Sinusitis location: maxillary Chronicity: acute Recurrence: non-recurrent Qualified Code(s): J01.00 - Acute maxillary sinusitis, unspecified Time of Disposition: 19:30 Disposition: Discharge to Home or Self Care Condition: Good Departure Forms: ED Discharge - Pt. Copy, Patient Portal Self Enrollment Diet: regular diet Activity: increase activity as tolerated Referrals: Mary Alice Mancia NP [Primary Care Provider] - 1-2 Weeks Prescriptions: levoFLOXacin [Levaquin] 500 mg PO DAILY 5 Days #5 tab Home Medications: Ambulatory Orders Acetaminophen W/ Codeine [Tylenol W/ CODEINE #3] 1 ea PO Q6HR #20 09/26/17 Symbicort 160-4.5 Mcg/Act 01/13/18 levoFLOXacin [Levaquin] 500 mg PO DAILY 5 Days #5 tab 01/13/18
[2018-01-13] MEDS ORDERED: levoFLOXacin 500 MG TAB PO ONE (19:48)
[2018-01-13 19:58] VITALS: BP 152/92; TEMP 98.2; O2SAT 96
== END 2018-01-13 19:58 | disposition home or self-care (01) ==
LOC: ER 17:19
DX: H66.001 Acute suppurative otitis media without spontaneous rupture of ear drum, right ear (principal); J01.00 Acute maxillary sinusitis, unspecified; E11.9 Type 2 diabetes mellitus without complications; R00.9 Unspecified abnormalities of heart beat

== ENCOUNTER 2018-02-13 16:22 | Emergency (ER) | payer SELFPAY ==
[2018-02-13] MEDS ORDERED: traMADol 37.5MG/APAP 325MG 1 EA TAB PO ONE (16:47)
[2018-02-13 16:48] VITALS: BP 162/97; TEMP 98.2; O2SAT 98
--- NOTE | 2018-02-13 16:50 | ED.PDOC ---
History of Present Illness - General Chief Complaint: Abdominal Pain Stated Complaint: abdominal pain, nausea Time Seen by Provider: 02/13/18 16:47 Information Source: patient Exam Limitations: no limitations - History of Present Illness Initial Comments: LEFT PERIUMBILICAL PAIN FOR TWO OR THREE WEEKS. NOW ALSO VOICES NAUSEA AND VOMIT FOR ONE DAY. NO DIARRHEA AND NO FEVER. SHE HAD AN UMBILICAL HERNIA REPAIR 6 MONTHS AGO, SHE IS AFRAID IS BACK. Abdominal Pain Onset Location: periumbilical Pain Radiation: no radiation Quality: moderate, intermittent, sharpness Timing/Duration: other - THREE WEEKS Improving Factors: nothing Worsening Factors: nothing Review of Systems - Review of Systems Constitutional: States: no symptoms reported EENTM: States: no symptoms reported Respiratory: States: no symptoms reported Cardiology: States: no symptoms reported Gastrointestinal/Abdominal: States: abdominal pain, nausea, vomiting Musculoskeletal: States: no symptoms reported Skin: States: no symptoms reported Neurological: States: no symptoms reported Endocrine: States: no symptoms reported Hematologic/Lymphatic: States: no symptoms reported Past Medical History (General) - Patient Medical History Hx Seizures: No Hx Stroke: No Hx Dementia: No Hx Asthma: No Hx of COPD: Yes Hx Cardiac Disorders: Yes - abnormal heart beat Hx Congestive Heart Failure: No Hx Pacemaker: No Hx Hypertension: No Hx Thyroid Disease: No Hx Diabetes: Yes Hx Gastroesophageal Reflux: No Hx Renal Disease: No Hx Cancer: No Hx of HIV: No Hx Hepatitis C: No Hx MRSA: No Surgical History: other - Vaccination History Hx Tetanus, Diphtheria Vaccination: Yes Hx Influenza Vaccination: Yes Hx Pneumococcal Vaccination: No - Social History Hx Tobacco Use: Yes Hx Chewing Tobacco Use: No Hx Alcohol Use: No Hx Substance Use: No Hx Substance Use Treatment: No Hx Depression: No Hx Physical Abuse: No Hx Emotional Abuse: No Hx Suspected Abuse: No - Female History Hx Last Menstrual Period: 04/07/17 Patient : No Family Medical History - Family History Father Family History: Unknown Living Status: Hx Family Congestive Heart Failure: Yes Hx Family Hypertension: Yes Hx Cardiac Disease: Yes Hx Family Diabetes: Yes Hx Family;Other: migraine headache both parents Physical Exam - Physical Exam General Appearance: Alert, No apparent distress Eyes, Ears, Nose, Throat Exam: PERRL/EOMI, normal ENT inspection Neck: non-tender, full range of motion, supple Respiratory: chest non-tender, lungs clear, normal breath sounds, no respiratory distress, no accessory muscle use Cardiovascular/Chest: normal peripheral pulses, regular rate, rhythm, no edema, no gallop, no JVD, no murmur Gastrointestinal/Abdominal: normal bowel sounds, no pulsatile mass, other - NO HERNIA DEFECT NOTED Rectal Exam: deferred Back Exam: normal inspection, no CVA tenderness, no vertebral tenderness Extremity: normal range of motion Departure - Departure Clinical Impression: Abdominal wall pain Disposition: Discharge to Home or Self Care Condition: Fair Departure Forms: ED Discharge - Pt. Copy, Patient Portal Self Enrollment Referrals: Mary Alice Mancia NP [Primary Care Provider] - 1-2 Weeks Prescriptions: Tramadol HCl 50 mg PO Q6HR #20 tab Home Medications: Ambulatory Orders Acetaminophen W/ Codeine [Tylenol W/ CODEINE #3] 1 ea PO Q6HR #20 09/26/17 Symbicort 160-4.5 Mcg/Act 01/13/18 levoFLOXacin [Levaquin] 500 mg PO DAILY 5 Days #5 tab 01/13/18 Tramadol HCl 50 mg PO Q6HR #20 tab 02/13/18
== END 2018-02-13 17:06 | disposition home or self-care (01) ==
LOC: ER 16:22
DX: R10.9 Unspecified abdominal pain (principal); J44.9 Chronic obstructive pulmonary disease, unspecified; E11.9 Type 2 diabetes mellitus without complications; R00.9 Unspecified abnormalities of heart beat; Z87.891 Personal history of nicotine dependence

== ENCOUNTER 2018-02-14 20:47 | Emergency (ER) | payer SELFPAY ==
[2018-02-14 21:04] VITALS: O2SAT 94
[2018-02-14] MEDS ORDERED: SODIUM CHLORIDE 0.9% 1000ML 1,000 ML IVS ONE (21:18)
[2018-02-14] MEDS ORDERED: PROMETHAZINE HCL INJ 25 MG in SODIUM CHLORIDE 0.9% 50ML 50 ML IVPB ONE (21:18)
[2018-02-14] MEDS ORDERED: SODIUM CHLORIDE 0.9% 50ML 50 ML ONE ×2 (21:21→21:25)
[2018-02-14] MEDS ORDERED: PROMETHAZINE HCL INJ 25 MG/ML VIAL ONE (21:21)
--- NOTE | 2018-02-14 21:47 | RAD ---
EXAM DESCRIPTION: Abdomen Series CLINICAL HISTORY:48 years Female, nv abd pain around umb hernia repair site Comparison: December 03, 2016 FINDINGS: No focal lung consolidation. No pleural effusion. No pneumothorax. Cardiac and mediastinal silhouette is unremarkable. No acute osseous abnormality. Soft tissues are unremarkable. Nonobstructive bowel gas pattern. No evidence of free air. IMPRESSION: No acute findings within the chest or abdomen. Electronically signed by: Singh Dalton MD 02/14/2018 9:45 PM CDT
--- NOTE | 2018-02-14 22:38 | CT ---
EXAM DESCRIPTION: Abdomen/Pelvis w/Contrast CLINICAL HISTORY: 48 years Female nv, pain at prev umb hernia repair site COMPARISON: 09/24/2017, 10/04/2017. TECHNIQUE: Contiguous axial images obtained through the abdomen and pelvis following IV contrast. Reformatted images obtained. This exam was performed according to our department optimization program which includes automated exposure control, adjustment of the mA and/or kv according to patient size and/or use of iterative reconstruction technique. FINDINGS: There is a crescentic area along the right heart border that may reflect pericardial cyst versus pericardial effusion. This was not well seen on prior examinations. Consider follow-up imaging with CT of the chest. Mildly enlarged liver. Spleen and pancreas appear unremarkable. No adrenal masses. No acute abnormality of the kidneys. There are mildly prominent portacaval lymph nodes which are unchanged. The gallbladder is contracted. No aneurysmal dilatation of the aorta. No bowel obstruction. The appendix is nonvisualized.. There are changes of hernia repair at the umbilicus with a small area that may reflect residual hematoma or seroma measuring 1.4 x 1.6 cm. The surgical mesh at the site appears folded over on itself. There does not appear to be evidence of adjacent fluid collection. IMPRESSION: Interval hernia repair with surgical mesh looped back on itself at the operative site and a small incisional fluid collection that may reflect hematoma or seroma No bowel obstruction Concentric fluid attenuation collection along the right heart border. Question loculated pericardial effusion. Pericardial cyst is thought less likely but not excluded Electronically signed by: Ivy Monique MD 02/14/2018 10:37 PM CDT
[2018-02-14] MEDS ORDERED: traMADol HCL 50 MG TAB PO ONE (22:55)
[2018-02-14] MEDS ORDERED: traMADol HCL 50 MG TAB ONE (22:58)
--- NOTE | 2018-02-14 23:01 | ED.PDOC ---
History of Present Illness - General Chief Complaint: Abdominal Pain Stated Complaint: Abd pain n/v Time Seen by Provider: 02/14/18 20:48 Source: patient Exam Limitations: no limitations - History of Present Illness Initial Comments: the patient is a 48-year-old female presenting to emergency room secondary to periumbilical abdominal pain along with some intermittent nausea and vomiting for the last 24-48 hours. No fever. No blood or bile in the vomitus. No blood in the stool. She has been having bowel movements and passing gas. No abdominal pain elsewhere. No urinary symptoms. No chest pain or shortness of breath. No palpitations. the patient did have an umbilical hernia repair performed approximately 6 months ago. The patient has gained significant weight since that time. Timing/Duration: 24 hours Severity: moderate Improving Factors: nothing Worsening Factors: nothing Associated Symptoms: denies symptoms Allergies/Adverse Reactions: Allergies Erythromycin Allergy (Verified 02/14/18 21:14) Hydromorphone [From Dilaudid] Allergy (Verified 02/14/18 21:14) Ketorolac Tromethamine [From Toradol] Allergy (Verified 02/14/18 21:14) Morphine Allergy (Verified 02/14/18 21:14) Penicillins Allergy (Verified 02/14/18 21:14) Sumatriptan [From Imitrex] Allergy (Verified 02/14/18 21:14) Home Medications: Ambulatory Orders Symbicort 160-4.5 Mcg/Act 1 puff BID 01/13/18 Tramadol HCl 50 mg PO Q6HR #20 tab 02/13/18 Ondansetron [Zofran Odt] 4 mg PO Q4H PRN #10 tab 02/14/18 Review of Systems - Review of Systems Constitutional: States: no symptoms reported EENTM: States: no symptoms reported Respiratory: States: no symptoms reported Cardiology: States: no symptoms reported Gastrointestinal/Abdominal: States: abdominal pain, nausea, vomiting Genitourinary: States: no symptoms reported Musculoskeletal: States: no symptoms reported Skin: States: no symptoms reported Neurological: States: anxiety Endocrine: States: no symptoms reported All other Systems: No Change from Baseline Past Medical History (General) - Patient Medical History Hx Seizures: No Hx Stroke: No Hx Dementia: No Hx Asthma: No Hx of COPD: Yes Hx Cardiac Disorders: No Hx Congestive Heart Failure: No Hx Pacemaker: No Hx Hypertension: No Hx Thyroid Disease: No Hx Diabetes: No Hx Gastroesophageal Reflux: No Hx Renal Disease: No Hx Cancer: No Hx of HIV: No Hx Hepatitis C: No Hx MRSA: No Surgical History: other - Vaccination History Hx Tetanus, Diphtheria Vaccination: No Hx Influenza Vaccination: Yes Hx Pneumococcal Vaccination: No - Social History Hx Tobacco Use: Yes Years Tobacco Use: 30 Cigarettes Packs Per Day: 10 Hx Chewing Tobacco Use: No Hx Alcohol Use: No Hx Substance Use: No Hx Substance Use Treatment: No Hx Depression: No Feels Threatened In Home Enviroment: No Feels Threatened In a Relationship: No Hx Physical Abuse: No Hx Emotional Abuse: No Hx Suspected Abuse: No - Activities of Daily Living Hospice Agency (if applicable):: None - Female History Patient is a Female of Child Bearing Age (10 -59 yrs old): Yes Hx Last Menstrual Period: 04/07/17 Patient : No Family Medical History - Family History Father Family History: Unknown Living Status: Hx Family Asthma: No Hx Family Congestive Heart Failure: Yes Hx Family Hypertension: Yes Hx Family Stroke: No Hx Cardiac Disease: Yes Hx Family Diabetes: Yes Hx Family Cancer: No Hx Family;Other: migraine headache both parents Physical Exam - Physical Exam General Appearance: Alert, Anxious, No apparent distress Eye Exam: bilateral normal Ears, Nose, Throat: hearing grossly normal, normal ENT inspection, normal pharynx Neck: full range of motion, supple Respiratory: lungs clear, normal breath sounds, no respiratory distress, no accessory muscle use Cardiovascular/Chest: normal peripheral pulses, regular rate, rhythm - once she relaxes, no edema Peripheral Pulses: radial,right: 2+, radial,left: 2+, dorsalis pedis,right: 2+, dorsalis pedis,left: 2+ Gastrointestinal/Abdominal: other - he patient is morbidly obese. She does have some discomfort to palpation just inferior to the umbilicus. No true rebound or peritoneal signs. Pressing on this area does cause some nausea. 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 Pain is around her umbilical hernia repair site. I do suspect that she is likely strained the hernia repair site giving her the pain and nausea. There is no evidence of any bowel entrapment or ischemia. There is no evidence of any obstruction. The patient does have a leukocytosis here today but it is not significantly over her baseline leukocytosis that she has chronically. I do not believe at this time antibiotics are warranted. She needs to keep herself well hydrated and did receive a liter of IV fluids here. Nausea medications have worked well. She can continue tramadol for pain. She will be written for Zofran for as needed use for nausea and vomiting. She does need to follow-up with her primary care doctor early next week to get set up for an echocardiogram for further evaluation of the pericardial cyst versus loculated pericardial effusion noted to the right side of the heart. She appears to be asymptomatic from this at this time. It is likely a long-standing issue. long- term the patient does need to work on weight loss to prevent further damage to the umbilical hernia repair site. ER warnings were given. - Results/Orders Results/Orders: Laboratory Results - last 24 hr 02/14/18 02/14/18 02/14/18 21:03 21:03 21:03 WBC 19.5 H RBC 4.67 Hgb 14.4 Hct 42.0 MCV 89.9 MCH 30.8 MCHC 34.2 RDW 14.5 Plt Count 324 MPV 9.6 Absolute Neuts (auto) 12.00 H Absolute Lymphs (auto) 6.00 H Absolute Monos (auto) 0.80 Absolute Eos (auto) 0.40 Absolute Basos (auto) 0.40 H Neutrophils % 61.4 Lymphocytes % 30.6 Monocytes % 4.0 Eosinophils % 1.9 Basophils % 2.1 H D-Dimer, Quantitative < 230 Sodium 139 Potassium 3.4 L Chloride 106 Carbon Dioxide 26 Anion Gap 10.4 L BUN 17 Creatinine 0.67 BUN/Creatinine Ratio 25.4 H Random Glucose 134 H Serum Osmolality 281.1 Lactic Acid Calcium 9.1 Total Bilirubin 0.3 AST 30 ALT 30 Alkaline Phosphatase 91 Creatine Kinase 304 H* CK-MB (CK-2) 4.3 CK-MB (CK-2) % Not Reportable Troponin I < 0.02 Serum Total Protein 7.0 Albumin 3.7 Globulin 3.3 Albumin/Globulin Ratio 1.1 Amylase 42 Lipase 33 Serum HCG, Qual Urine Color Urine Appearance Urine pH Ur Specific [place] Urine Protein Urine Glucose (UA) Urine Ketones Urine Blood Urine Nitrite Urine Bilirubin Urine Urobilinogen Ur Leukocyte Esterase Urine RBC Urine WBC Ur Epithelial Cells Amorphous Sediment Urine Bacteria 02/14/18 02/14/18 02/14/18 21:03 21:10 21:20 WBC RBC Hgb Hct MCV MCH MCHC RDW Plt Count MPV Absolute Neuts (auto) Absolute Lymphs (auto) Absolute Monos (auto) Absolute Eos (auto) Absolute Basos (auto) Neutrophils % Lymphocytes % Monocytes % Eosinophils % Basophils % D-Dimer, Quantitative Sodium Potassium Chloride Carbon Dioxide Anion Gap BUN Creatinine BUN/Creatinine Ratio Random Glucose Serum Osmolality Lactic Acid 1.1 Calcium Total Bilirubin AST ALT Alkaline Phosphatase Creatine Kinase CK-MB (CK-2) CK-MB (CK-2) % Troponin I Serum Total Protein Albumin Globulin Albumin/Globulin Ratio Amylase Lipase Serum HCG, Qual Negative Urine Color Yellow Urine Appearance Sl cloudy Urine pH 7.0 Ur Specific [place] 1.025 Urine Protein Negative Urine Glucose (UA) Negative Urine Ketones Negative Urine Blood Trace-intact H Urine Nitrite Negative Urine Bilirubin Negative Urine Urobilinogen 2.0 H Ur Leukocyte Esterase Trace H Urine RBC 0-1 Urine WBC 5-10 H Ur Epithelial Cells 20-30 Amorphous Sediment Trace Urine Bacteria Rare acute abdominal series shows no significant pathology. CT scan of abdomen and pelvis shows curling up of the umbilical hernia repair mesh. No bowel entrapment. No evidence of any bowel ischemia. No free air or free fluid. There is a small hematoma or seroma at the umbilical hernia repair site. Additionally the patient either has a small's loculated seroma to the right side of the heart versus a small pericardial cyst. It is uncertain if this has been present prior. Departure - Departure Clinical Impression: Pericardial disorder Abdominal pain Qualifiers: Abdominal location: periumbilical Qualified Code(s): R10.33 - Periumbilical pain Nausea & vomiting Qualifiers: Vomiting type: unspecified Vomiting Intractability: non-intractable Qualified Code(s): R11.2 - Nausea with vomiting, unspecified Disposition: Discharge to Home or Self Care Condition: Fair Departure Forms: ED Discharge - Pt. Copy, Patient Portal Self Enrollment Diet: diabetic diet Activity: no lifting Referrals: Mary Alice Mancia NP [Primary Care Provider] - 1-5 Days Prescriptions: Ondansetron [Zofran Odt] 4 mg PO Q4H PRN #10 tab PRN Reason: Vomiting Home Medications: Ambulatory Orders Symbicort 160-4.5 Mcg/Act 1 puff BID 01/13/18 Tramadol HCl 50 mg PO Q6HR #20 tab 02/13/18 Ondansetron [Zofran Odt] 4 mg PO Q4H PRN #10 tab 02/14/18 Additional Instructions: the patient's a 48-year-old female presenting to the emergency room secondary to abdominal pain with intermittent nausea and vomiting for the last day or 2. Pain is around her umbilical hernia repair site. I do suspect that she is likely strained the hernia repair site giving her the pain and nausea. There is no evidence of any bowel entrapment or ischemia. There is no evidence of any obstruction. The patient does have a leukocytosis here today but it is not significantly over her baseline leukocytosis that she has chronically. I do not believe at this time antibiotics are warranted. She needs to keep herself well hydrated and did receive a liter of IV fluids here. Nausea medications have worked well. She can continue tramadol for pain. She will be written for Zofran for as needed use for nausea and vomiting. She does need to follow-up with her primary care doctor early next week to get set up for an echocardiogram for further evaluation of the pericardial cyst versus loculated pericardial effusion noted to the right side of the heart. She appears to be asymptomatic from this at this time. It is likely a long-standing issue. long- term the patient does need to work on weight loss to prevent further damage to the umbilical hernia repair site. ER warnings were given.
[2018-02-14] MEDS ORDERED: ONDANSETRON ODT 8 MG TAB SL ONE (23:09)
[2018-02-15 00:03] VITALS: BP 156/89; TEMP 97.5
== END 2018-02-14 23:55 | disposition home or self-care (01) ==
LOC: ER 20:47
DX: R10.33 Periumbilical pain (principal); R11.2 Nausea with vomiting, unspecified; F17.210 Nicotine dependence, cigarettes, uncomplicated; J44.9 Chronic obstructive pulmonary disease, unspecified
CPT/HCPCS: 36415; 74019; 74177; 80053; 81001; 82150; 82550; 82553; 83605; 83690; 84484; 84703; 85025; 85379; A4216; J2550; J7030

== ENCOUNTER 2018-03-28 20:05 | Emergency (ER) | payer OTHER ==
[2018-03-28 20:19] VITALS: TEMP 99.7
[2018-03-28] MEDS ORDERED: HYDROcodone 10MG/APAP 325MG 1 EA TAB PO ONE (20:52)
--- NOTE | 2018-03-28 20:55 | ED.PDOC ---
History of Present Illness - General Chief Complaint: General Stated Complaint: overheated Time Seen by Provider: 03/28/18 20:52 Source: patient - History of Present Illness Initial Comments: HAS BEEN EXPOSED TO THE ELEMENTS AND NOT DRINKING PLENTY OF FLUIDS. NOW FEELS DIZZY AND SLEEPY AND HAS A HEADACHE. DENIES ANY MUSCLE CRAMPS OR VOMITING. Timing/Duration: 4-6 hours Severity: mild Improving Factors: nothing Associated Symptoms: denies symptoms Allergies/Adverse Reactions: Allergies Erythromycin Allergy (Verified 02/14/18 21:14) Hydromorphone [From Dilaudid] Allergy (Verified 02/14/18 21:14) Ketorolac Tromethamine [From Toradol] Allergy (Verified 02/14/18 21:14) Morphine Allergy (Verified 02/14/18 21:14) Penicillins Allergy (Verified 02/14/18 21:14) Sumatriptan [From Imitrex] Allergy (Verified 02/14/18 21:14) Home Medications: Ambulatory Orders HYDROcodone 5MG/APAP 325MG [[place] 5/325] 1 ea PO PRN PRN 03/28/18 Lisinopril 20 mg PO DAILY 03/28/18 Review of Systems - Review of Systems Constitutional: States: no symptoms reported EENTM: States: no symptoms reported Respiratory: States: no symptoms reported Cardiology: States: no symptoms reported Gastrointestinal/Abdominal: States: no symptoms reported Genitourinary: States: no symptoms reported Musculoskeletal: States: no symptoms reported Skin: States: no symptoms reported Neurological: States: headache Endocrine: States: no symptoms reported Hematologic/Lymphatic: States: no symptoms reported Past Medical History (General) - Patient Medical History Hx Seizures: No Hx Stroke: No Hx Dementia: No Hx Asthma: No Hx of COPD: Yes Hx Cardiac Disorders: No Hx Congestive Heart Failure: No Hx Pacemaker: No Hx Hypertension: Yes Hx Thyroid Disease: No Hx Diabetes: No Hx Gastroesophageal Reflux: No Hx Renal Disease: No Hx Cancer: No Hx of HIV: No Hx Hepatitis C: No Hx MRSA: No - Vaccination History Hx Tetanus, Diphtheria Vaccination: No Hx Influenza Vaccination: Yes Hx Pneumococcal Vaccination: No - Social History Hx Tobacco Use: Yes Hx Chewing Tobacco Use: No Hx Alcohol Use: No Hx Substance Use: No Hx Substance Use Treatment: No Hx Depression: No Hx Physical Abuse: No Hx Emotional Abuse: No Hx Suspected Abuse: No - Female History Hx Last Menstrual Period: 04/07/17 Patient : No Family Medical History - Family History Father Family History: Unknown Living Status: Hx Family Asthma: No Hx Family Congestive Heart Failure: Yes Hx Family Hypertension: Yes Hx Family Stroke: No Hx Cardiac Disease: Yes Hx Family Diabetes: Yes Hx Family Cancer: No Hx Family;Other: migraine headache both parents Physical Exam - Physical Exam General Appearance: Alert, No apparent distress, Well Developed, Well Groomed, Well Hydrated Eye Exam: bilateral normal Ears, Nose, Throat: hearing grossly normal, normal ENT inspection Neck: non-tender, full range of motion, supple Respiratory: chest non-tender, lungs clear, normal breath sounds, no respiratory distress, no accessory muscle use Cardiovascular/Chest: normal peripheral pulses, regular rate, rhythm, no edema, no gallop, no JVD Gastrointestinal/Abdominal: normal bowel sounds, non tender, soft, no organomegaly, no pulsatile mass Rectal Exam: deferred Extremity: normal range of motion Neurologic: alert, oriented x 3 Skin Exam: normal color Progress - EKG/XRAY/CT CT Ordered: No CT Interpretation Call Back: No Departure - Departure Clinical Impression: Heat exhaustion Qualifiers: Encounter type: initial encounter Qualified Code(s): T67.5XXA - Heat exhaustion , unspecified, initial encounter Time of Disposition: 20:58 Disposition: Discharge to Home or Self Care Condition: Good Departure Forms: ED Discharge - Pt. Copy, Patient Portal Self Enrollment Diet: resume usual diet Activity: increase activity as tolerated Referrals: Mary Alice Mancia NP [Primary Care Provider] - 1-2 Weeks Home Medications: Ambulatory Orders HYDROcodone 5MG/APAP 325MG [[place] 5/325] 1 ea PO PRN PRN 03/28/18 Lisinopril 20 mg PO DAILY 03/28/18
[2018-03-28 21:14] VITALS: BP 108/60; O2SAT 98
== END 2018-03-28 21:10 | disposition home or self-care (01) ==
LOC: ER 20:05
DX: T67.5XXA Heat exhaustion, unspecified, initial encounter (principal); J44.9 Chronic obstructive pulmonary disease, unspecified; I10 Essential (primary) hypertension; Z87.891 Personal history of nicotine dependence; X30.XXXA Exposure to excessive natural heat, initial encounter; Y92.9 Unspecified place or not applicable

== ENCOUNTER 2018-06-11 16:29 | Emergency (ER) | payer SELFPAY ==
[2018-06-11 16:46] VITALS: BP 148/80; TEMP 98.9; O2SAT 97
[2018-06-11] MEDS ORDERED: HYDROcodone 10MG/APAP 325MG 1 EA TAB PO ONE (17:05)
--- NOTE | 2018-06-11 17:42 | ED.PDOC ---
History of Present Illness - General Chief Complaint: Abdominal Pain Stated Complaint: umbilical hernia pain Time Seen by Provider: 06/11/18 16:55 Source: patient Exam Limitations: no limitations - History of Present Illness Initial Comments: Patient presents with acute on chronic umbilical pain. Non radiating. Aching in nature. She had "a little" N/V earlier today. Has had loose stools recently that are non-bloody. Denies urinary complaints. Has had a decreased appetite. No other complaints. Timing/Duration: changing over time, intermittent Severity: moderate Improving Factors: rest Worsening Factors: movement Associated Symptoms: loss of appetite, nausea/vomiting Allergies/Adverse Reactions: Allergies Erythromycin Allergy (Verified 02/14/18 21:14) Hydromorphone [From Dilaudid] Allergy (Verified 02/14/18 21:14) Ketorolac Tromethamine [From Toradol] Allergy (Verified 02/14/18 21:14) Morphine Allergy (Verified 02/14/18 21:14) Penicillins Allergy (Verified 02/14/18 21:14) Sumatriptan [From Imitrex] Allergy (Verified 02/14/18 21:14) Home Medications: Ambulatory Orders HYDROcodone 5MG/APAP 325MG [[place] 5/325] 1 ea PO PRN PRN 03/28/18 Lisinopril 20 mg PO DAILY 03/28/18 Acetaminophen W/ Codeine [Tylenol W/ CODEINE #3] 1 ea PO Q6HRS PRN #26 Review of Systems - Review of Systems Constitutional: States: see HPI EENTM: States: see HPI Respiratory: States: see HPI Cardiology: States: see HPI Gastrointestinal/Abdominal: States: no symptoms reported Genitourinary: States: see HPI Musculoskeletal: States: no symptoms reported Skin: States: no symptoms reported Neurological: States: no symptoms reported Endocrine: States: no symptoms reported Hematologic/Lymphatic: States: no symptoms reported Past Medical History (General) - Patient Medical History Hx Seizures: No Hx Stroke: No Hx Dementia: No Hx Asthma: No Hx of COPD: Yes Hx Cardiac Disorders: No Hx Congestive Heart Failure: No Hx Pacemaker: No Hx Hypertension: Yes Hx Thyroid Disease: No Hx Diabetes: No Hx Gastroesophageal Reflux: No Hx Renal Disease: No Hx Cancer: No Hx of HIV: No Hx Hepatitis C: No Hx MRSA: No - Vaccination History Hx Tetanus, Diphtheria Vaccination: No Hx Influenza Vaccination: Yes Hx Pneumococcal Vaccination: No - Social History Hx Tobacco Use: Yes Hx Chewing Tobacco Use: No Hx Alcohol Use: No Hx Substance Use: No Hx Substance Use Treatment: No Hx Depression: No Hx Physical Abuse: No Hx Emotional Abuse: No Hx Suspected Abuse: No - Female History Patient is a Female of Child Bearing Age (10 -59 yrs old): Yes Hx Last Menstrual Period: 04/07/17 Patient : No Family Medical History - Family History Father Family History: Unknown Living Status: Hx Family Asthma: No Hx Family Congestive Heart Failure: Yes Hx Family Hypertension: Yes Hx Family Stroke: No Hx Cardiac Disease: Yes Hx Family Diabetes: Yes Hx Family Cancer: No Hx Family;Other: migraine headache both parents Physical Exam - Physical Exam General Appearance: Alert Eye Exam: bilateral normal Ears, Nose, Throat: hearing grossly normal, normal ENT inspection Neck: non-tender, full range of motion, supple Respiratory: chest non-tender, lungs clear, normal breath sounds, no respiratory distress Cardiovascular/Chest: normal peripheral pulses, regular rate, rhythm, no edema Gastrointestinal/Abdominal: normal bowel sounds, soft, tenderness - over umbilicus Back Exam: normal inspection, no CVA tenderness Extremity: normal range of motion, non-tender, normal inspection Neurologic: 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 nml as tested, no motor/sensory deficits, alert, normal mood/affect, oriented x 3 Skin Exam: normal color Lymphatic: no adenopathy Progress - Progress Progress: 06/11/18 17:57 Laboratory Tests 06/11/18 06/11/18 06/11/18 17:13 17:13 17:13 WBC 12.4 H RBC 4.68 Hgb 14.1 Hct 42.8 MCV 91.4 MCH 30.1 MCHC 32.9 L RDW 15.0 H Plt Count 262 MPV 9.2 Absolute Neuts (auto) 7.50 H Absolute Lymphs (auto) 3.80 H Absolute Monos (auto) 0.70 Absolute Eos (auto) 0.30 Absolute Basos (auto) 0.10 Neutrophils % 60.5 Lymphocytes % 30.5 Monocytes % 6.0 Eosinophils % 2.1 Basophils % 0.9 Sodium 141 Potassium 3.8 Chloride 106 Carbon Dioxide 28 Anion Gap 10.8 L BUN 13 Creatinine 0.75 BUN/Creatinine Ratio 17.3 Random Glucose 88 Serum Osmolality 280.8 Calcium 9.0 Total Bilirubin < 0.2 L AST 26 ALT 37 Alkaline Phosphatase 81 Serum Total Protein 6.9 Albumin 3.5 Globulin 3.4 Albumin/Globulin Ratio 1.0 L Lipase 39 Urine Color Urine Appearance Urine pH Ur Specific [place] Urine Protein Urine Glucose (UA) Urine Ketones Urine Blood Urine Nitrite Urine Bilirubin Urine Urobilinogen Ur Leukocyte Esterase Urine RBC Urine WBC Ur Epithelial Cells Urine Bacteria Urine Sperm Urine HCG, Qual 06/11/18 06/11/18 17:30 17:30 WBC RBC Hgb Hct MCV MCH MCHC RDW Plt Count MPV Absolute Neuts (auto) Absolute Lymphs (auto) Absolute Monos (auto) Absolute Eos (auto) Absolute Basos (auto) Neutrophils % Lymphocytes % Monocytes % Eosinophils % Basophils % Sodium Potassium Chloride Carbon Dioxide Anion Gap BUN Creatinine BUN/Creatinine Ratio Random Glucose Serum Osmolality Calcium Total Bilirubin AST ALT Alkaline Phosphatase Serum Total Protein Albumin Globulin Albumin/Globulin Ratio Lipase Urine Color Yellow Urine Appearance Sl cloudy Urine pH 7.0 Ur Specific [place] 1.010 Urine Protein Negative Urine Glucose (UA) Negative Urine Ketones Negative Urine Blood Moderate H Urine Nitrite Negative Urine Bilirubin Negative Urine Urobilinogen 1.0 Ur Leukocyte Esterase Negative Urine RBC 0-1 Urine WBC 0-1 Ur Epithelial Cells 1-3 Urine Bacteria 0 Urine Sperm 0-1 Urine HCG, Qual Negative wbc 12.4 with normal diff. Patient did not seem to be in much pain during her visit. Normal temperature. Moderate blood in urine explained by her ending menstrual cycle. Her plans to have surgery to correct the hernia were discussed. She did not want another CT and there was no indication for it at this time. She agreed to call her surgeon in the morning and see about getting a repair. Tylenol #3 RX given. Departure - Departure Clinical Impression: Hernia Disposition: Discharge to Home or Self Care Condition: Good Departure Forms: ED Discharge - Pt. Copy, Patient Portal Self Enrollment Instructions: DI for Abdominal Pain-Adult Diet: other - as in instructed by your regular doctor Referrals: Cristino Jimenez III, MD [Primary Care Provider] - 1-2 Weeks Prescriptions: Acetaminophen W/ Codeine [Tylenol W/ CODEINE #3] 1 ea PO Q6HRS PRN #26 PRN Reason: Pain -- Moderate To Severe Home Medications: Ambulatory Orders HYDROcodone 5MG/APAP 325MG [[place] 5/325] 1 ea PO PRN PRN 03/28/18 Lisinopril 20 mg PO DAILY 03/28/18 Acetaminophen W/ Codeine [Tylenol W/ CODEINE #3] 1 ea PO Q6HRS PRN #26
== END 2018-06-11 18:10 | disposition home or self-care (01) ==
LOC: ER 16:29
DX: K42.9 Umbilical hernia without obstruction or gangrene (principal); I10 Essential (primary) hypertension; J44.9 Chronic obstructive pulmonary disease, unspecified; Z87.891 Personal history of nicotine dependence; Z79.899 Other long term (current) drug therapy; Z88.0 Allergy status to penicillin; Z88.5 Allergy status to narcotic agent; Z88.8 Allergy status to other drugs, medicaments and biological substances; Z88.1 Allergy status to other antibiotic agents

== ENCOUNTER 2018-08-11 01:47 | Emergency (ER) | payer SELFPAY ==
[2018-08-11 02:03] VITALS: TEMP 98.1; O2SAT 98
[2018-08-11] MEDS ORDERED: PROMETHAZINE HCL 25 MG TAB PO ONE (02:17)
[2018-08-11] MEDS ORDERED: predniSONE 20 MG TAB PO ONE (02:17)
[2018-08-11] MEDS ORDERED: HYDROcodone 10MG/APAP 325MG 1 EA TAB PO ONE (02:17)
--- NOTE | 2018-08-11 02:20 | ED.PDOC ---
History of Present Illness - General Chief Complaint: Headache Stated Complaint: Headache Time Seen by Provider: 08/11/18 02:12 Source: patient Exam Limitations: no limitations - History of Present Illness Initial Comments: the patient is a 48-year-old female presenting to the emergency room secondary to a migraine headache. The patient reports that she gets migraine headaches 3 or 4 times a year. She has taken Motrin and Tylenol for this without any relief. Normally she takes her hydrocodone but she has been out of that for 2 weeks. No fever. No neurological changes that are new. She does have some nausea but no vomiting. No fever. No vision changes. She does have mild photophobia. Timing/Duration: other - 20 hours Severity: moderate Improving Factors: nothing Worsening Factors: movement Associated Symptoms: malaise Allergies/Adverse Reactions: Allergies Erythromycin Allergy (Verified 02/14/18 21:14) Hydromorphone [From Dilaudid] Allergy (Verified 02/14/18 21:14) Ketorolac Tromethamine [From Toradol] Allergy (Verified 02/14/18 21:14) Morphine Allergy (Verified 02/14/18 21:14) Penicillins Allergy (Verified 02/14/18 21:14) Sumatriptan [From Imitrex] Allergy (Verified 02/14/18 21:14) Home Medications: Ambulatory Orders HYDROcodone 5MG/APAP 325MG [[place] 5/325] 1 ea PO PRN PRN 03/28/18 Lisinopril 20 mg PO DAILY 03/28/18 Review of Systems - Review of Systems Constitutional: States: malaise EENTM: States: no symptoms reported Respiratory: States: no symptoms reported Cardiology: States: no symptoms reported Gastrointestinal/Abdominal: States: nausea Genitourinary: States: no symptoms reported Musculoskeletal: States: no symptoms reported Skin: States: no symptoms reported Neurological: States: headache Endocrine: States: no symptoms reported Hematologic/Lymphatic: States: no symptoms reported All other Systems: No Change from Baseline Past Medical History (General) - Patient Medical History Hx Seizures: No Hx Stroke: No Hx Dementia: No Hx Asthma: No Hx of COPD: Yes Hx Cardiac Disorders: No Hx Congestive Heart Failure: No Hx Pacemaker: No Hx Hypertension: Yes Hx Thyroid Disease: No Hx Diabetes: No Hx Gastroesophageal Reflux: No Hx Renal Disease: No Hx Cancer: No Hx of HIV: No Hx Hepatitis C: No Hx MRSA: No Surgical History: appendectomy - Vaccination History Hx Tetanus, Diphtheria Vaccination: No Hx Influenza Vaccination: No Hx Pneumococcal Vaccination: No - Social History Hx Tobacco Use: Yes Hx Chewing Tobacco Use: No Hx Alcohol Use: No Hx Substance Use: No Hx Substance Use Treatment: No Hx Depression: No Hx Physical Abuse: No Hx Emotional Abuse: No Hx Suspected Abuse: No - Female History Hx Last Menstrual Period: 04/07/17 Patient : No Family Medical History - Family History Father Family History: Unknown Living Status: Hx Family Asthma: No Hx Family Congestive Heart Failure: Yes Hx Family Hypertension: Yes Hx Family Stroke: No Hx Cardiac Disease: Yes Hx Family Diabetes: Yes Hx Family Cancer: No Hx Family;Other: migraine headache both parents Physical Exam - Physical Exam General Appearance: Alert, No apparent distress Eye Exam: bilateral normal Ears, Nose, Throat: hearing grossly normal, normal pharynx Neck: full range of motion, supple Respiratory: lungs clear, normal breath sounds, no respiratory distress, no accessory muscle use Cardiovascular/Chest: normal peripheral pulses, regular rate, rhythm, no edema Peripheral Pulses: radial,right: 2+, radial,left: 2+ Gastrointestinal/Abdominal: non tender - morbidly obese, soft Rectal Exam: deferred Back Exam: no CVA tenderness Extremity: normal range of motion, non-tender, normal inspection, no pedal edema , normal capillary refill Neurologic: planning aide II-XII nml as tested, alert, normal mood/affect, oriented x 3 Skin Exam: normal color Comments: Vital Signs - 24 hr 08/11/18 01:59 Temperature 98.1 F Pulse Rate [ 89 Left] Respiratory 18 Rate Blood Pressure 161/102 [Right Radial Artery] O2 Sat by Pulse 98 Oximetry Progress - Progress Progress: 08/11/18 02:20 the patient is a 48-year-old female that presents to the emergency room secondary to a migraine headache that has been present for about the last 20 hours. This is a typical migraine for her. The patient was given doses of hydrocodone, Phenergan and prednisone. She does need to increase her fluid intake. The patient will be discharged home so that she can rest. ER warnings were given. Keep routine follow-up with primary care doctor. Departure - Departure Clinical Impression: Migraine Qualifiers: Migraine type: without aura Status migrainosus presence: with status migrainosus Intractability: not intractable Qualified Code(s): G43.001 - Migraine without aura, not intractable, with status migrainosus Disposition: Discharge to Home or Self Care Condition: Fair Departure Forms: ED Discharge - Pt. Copy, Patient Portal Self Enrollment Diet: low salt diet Activity: increase activity as tolerated Referrals: Cristino Jimenez III, MD [Primary Care Provider] - 1-2 Weeks Home Medications: Ambulatory Orders HYDROcodone 5MG/APAP 325MG [[place] 5/325] 1 ea PO PRN PRN 03/28/18 Lisinopril 20 mg PO DAILY 03/28/18 Additional Instructions: the patient is a 48-year-old female that presents to the emergency room secondary to a migraine headache that has been present for about the last 20 hours. This is a typical migraine for her. The patient was given doses of hydrocodone, Phenergan and prednisone. She does need to increase her fluid intake. The patient will be discharged home so that she can rest. ER warnings were given. Keep routine follow-up with primary care doctor.
[2018-08-11 02:36] VITALS: BP 158/92
== END 2018-08-11 02:36 | disposition home or self-care (01) ==
LOC: ER 01:47
DX: G43.001 Migraine without aura, not intractable, with status migrainosus (principal); J44.9 Chronic obstructive pulmonary disease, unspecified; I10 Essential (primary) hypertension; Z87.891 Personal history of nicotine dependence; Z79.899 Other long term (current) drug therapy; Z88.5 Allergy status to narcotic agent; Z88.0 Allergy status to penicillin; Z88.1 Allergy status to other antibiotic agents; Z88.8 Allergy status to other drugs, medicaments and biological substances
CPT/HCPCS: J7512; Q0169

== ENCOUNTER 2018-09-27 22:36 | Emergency (ER) | payer SELFPAY ==
[2018-09-27] MEDS ORDERED: predniSONE 20 MG TAB PO ONE (22:59)
[2018-09-27 23:11] VITALS: TEMP 98.7
--- NOTE | 2018-09-27 23:41 | RAD ---
EXAM DESCRIPTION: Chest,2 Views CLINICAL HISTORY: 48 years Female cough COMPARISON: 12/03/2016. FINDINGS: The cardiomediastinal silhouette appears unremarkable. There is mild infiltrate in the right lower lung which could be from pneumonia. No pleural effusions. No pneumothorax. IMPRESSION: Mild infiltrate in the right lower lung which could be from pneumonia. Electronically signed by: Neo Monique MD 09/27/2018 11:40 PM [employer]ALL[employer] TE[employer]ER
[2018-09-27] MEDS ORDERED: levoFLOXacin 500 MG TAB PO ONE (23:43)
[2018-09-27] MEDS ORDERED: cefTRIAXone SODIUM 1 GM VIAL IM ONE (23:43)
[2018-09-27] MEDS ORDERED: LIDOCAINE 1% 2 ML VIAL INJ ONE (23:52)
--- NOTE | 2018-09-27 23:56 | ED.PDOC ---
History of Present Illness - General Chief Complaint: Respiratory Problem Stated Complaint: coughing, aching since yesterday Time Seen by Provider: 09/27/18 22:46 Exam Limitations: no limitations - History of Present Illness Initial Comments: the patient is a 48-year-old female presenting to the emergency room with 2-3 days of symptoms of fever up sore throat, hoarseness and cough along with some body aches. She does smoke and has smoked for many years. Timing/Duration: unsure Severity: moderate Improving Factors: nothing Worsening Factors: nothing Associated Symptoms: denies symptoms Allergies/Adverse Reactions: Allergies Erythromycin Allergy (Verified 09/27/18 23:11) Hydromorphone [From Dilaudid] Allergy (Verified 02/14/18 21:14) Ketorolac Tromethamine [From Toradol] Allergy (Verified 09/27/18 23:11) Morphine Allergy (Verified 09/27/18 23:11) Penicillins Allergy (Verified 09/27/18 23:11) Sumatriptan [From Imitrex] Allergy (Verified 09/27/18 23:11) Home Medications: Ambulatory Orders HYDROcodone 5MG/APAP 325MG [[place] 5/325] 1 ea PO PRN PRN 03/28/18 Lisinopril 40 mg PO DAILY 03/28/18 levoFLOXacin [Levaquin] 500 mg PO DAILY #5 tab 09/28/18 Review of Systems - Review of Systems Constitutional: States: fever, malaise EENTM: States: nose congestion Respiratory: States: cough Cardiology: States: no symptoms reported Gastrointestinal/Abdominal: States: no symptoms reported Genitourinary: States: no symptoms reported Musculoskeletal: States: no symptoms reported Skin: States: no symptoms reported Neurological: States: no symptoms reported Endocrine: States: no symptoms reported Hematologic/Lymphatic: States: no symptoms reported All other Systems: No Change from Baseline Past Medical History (General) - Patient Medical History Hx Seizures: No Hx Stroke: No Hx Dementia: No Hx Asthma: No Hx of COPD: Yes Hx Cardiac Disorders: Yes - fluid around heart, cyst to right heart Hx Congestive Heart Failure: No Hx Pacemaker: No Hx Hypertension: Yes Hx Thyroid Disease: No Hx Diabetes: No Hx Gastroesophageal Reflux: No Hx Renal Disease: No Hx Cancer: No Hx of HIV: No Hx Hepatitis C: No Hx MRSA: No - Vaccination History Hx Tetanus, Diphtheria Vaccination: No Hx Influenza Vaccination: No Hx Pneumococcal Vaccination: No - Social History Hx Tobacco Use: Yes Hx Chewing Tobacco Use: No Hx Alcohol Use: No Hx Substance Use: No Hx Substance Use Treatment: No Hx Depression: No Hx Physical Abuse: No Hx Emotional Abuse: No Hx Suspected Abuse: No - Female History Hx Last Menstrual Period: 04/07/17 Patient : No Family Medical History - Family History Father Family History: Unknown Living Status: Hx Family Asthma: No Hx Family Congestive Heart Failure: Yes Hx Family Hypertension: Yes Hx Family Stroke: No Hx Cardiac Disease: Yes Hx Family Diabetes: Yes Hx Family Cancer: No Hx Family;Other: migraine headache both parents Physical Exam - Physical Exam General Appearance: Alert, Comfortable, No apparent distress Eye Exam: bilateral normal Ears, Nose, Throat: hearing grossly normal, nasal congestion Neck: full range of motion, supple Respiratory: no respiratory distress, no accessory muscle use, wheezing - scattered mild Cardiovascular/Chest: normal peripheral pulses, regular rate, rhythm, no edema Peripheral Pulses: radial,right: 2+, radial,left: 2+ Gastrointestinal/Abdominal: non tender, soft Rectal Exam: deferred Back Exam: normal inspection, no CVA tenderness Extremity: normal range of motion, non-tender, normal inspection, no pedal edema, normal capillary refill Neurologic: 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 Additionally chest x-ray shows the possibility of small left lower lobe infiltrate. For this reason the patient is going to be placed on oral Levaquin for the next 5 days. She is receiving 1 dose of IM Rocephin here and a dose of oral prednisone as well. She needs to refrain from smoking. She needs to follow up with her primary care doctor later this coming week. ER warnings were given. Departure - Departure Clinical Impression: Laryngitis, Bronchitis Disposition: Discharge to Home or Self Care Condition: Fair Departure Forms: ED Discharge - Pt. Copy, Patient Portal Self Enrollment Instructions: Laryngitis (DC) Diet: regular diet Activity: increase activity as tolerated Referrals: Cristino Jimenez III, MD [Primary Care Provider] - 1-5 Days Prescriptions: levoFLOXacin [Levaquin] 500 mg PO DAILY #5 tab Home Medications: Ambulatory Orders HYDROcodone 5MG/APAP 325MG [[place] 5/325] 1 ea PO PRN PRN 03/28/18 Lisinopril 40 mg PO DAILY 03/28/18 levoFLOXacin [Levaquin] 500 mg PO DAILY #5 tab 09/28/18 Additional Instructions: the patient's 48-year-old female presenting with what appears to be a bronchitis and laryngitis. Additionally chest x-ray shows the possibility of small left lower lobe infiltrate. For this reason the patient is going to be placed on oral Levaquin for the next 5 days. She is receiving 1 dose of IM Rocephin here and a dose of oral prednisone as well. She needs to refrain from smoking. She needs to follow up with her primary care doctor later this coming week. a humidifier may also help reduce symptoms at night. Oral Motrin may also help reduce fever and inflammatory symptoms as well. ER warnings were given.
[2018-09-28 00:12] VITALS: BP 137/81; O2SAT 97
== END 2018-09-28 00:27 | disposition home or self-care (01) ==
LOC: ER 22:36
DX: J04.0 Acute laryngitis (principal); J44.9 Chronic obstructive pulmonary disease, unspecified; I10 Essential (primary) hypertension; F17.200 Nicotine dependence, unspecified, uncomplicated; Z79.899 Other long term (current) drug therapy; Z88.0 Allergy status to penicillin; Z88.1 Allergy status to other antibiotic agents; Z88.5 Allergy status to narcotic agent
CPT/HCPCS: 71046; J0696; J7512

== ENCOUNTER 2018-10-04 15:14 | Emergency (ER) | payer SELFPAY ==
--- NOTE | 2018-10-04 15:38 | ED.PDOC ---
History of Present Illness - General Chief Complaint: Abdominal Pain Stated Complaint: Abdominal discomfort Time Seen by Provider: 10/04/18 15:26 Information Source: patient Exam Limitations: no limitations - History of Present Illness Initial Comments: Patient presents with umbilical pain since waking up this morning. She has a history of an umbilical hernia repair and says that she is supposed to get a revision. The pain is constant and burning/sharp. Non-radiating. No exacerbating nor alleviating factors. No N/V. She has some diarrhea this morning. No other associated symptoms. Has had previous episodes. Her last meal was this morning. She normally takes hydrocodone but has not taken that in two weeks and is out of that medications. No other complaints. Abdominal Pain Onset Location: periumbilical Pain Radiation: no radiation Quality: moderate, burning Timing/Duration: 4-6 hours Improving Factors: nothing Worsening Factors: nothing Associated Symptoms: denies symptoms Review of Systems - Review of Systems Constitutional: States: no symptoms reported EENTM: States: no symptoms reported Respiratory: States: no symptoms reported Cardiology: States: no symptoms reported Gastrointestinal/Abdominal: States: see HPI Genitourinary: States: no symptoms reported Musculoskeletal: States: no symptoms reported Skin: States: no symptoms reported Neurological: States: no symptoms reported Endocrine: States: no symptoms reported Hematologic/Lymphatic: States: no symptoms reported Past Medical History (General) - Patient Medical History Hx Seizures: No Hx Stroke: No Hx Dementia: No Hx Asthma: No Hx of COPD: Yes Hx Cardiac Disorders: Yes - fluid around heart, cyst to right heart Hx Congestive Heart Failure: Yes Hx Pacemaker: No Hx Hypertension: Yes Hx Thyroid Disease: No Hx Diabetes: No Hx Gastroesophageal Reflux: No Hx Renal Disease: No Hx Cancer: No Hx of HIV: No Hx Hepatitis C: No Hx MRSA: No Surgical History: other - Vaccination History Hx Tetanus, Diphtheria Vaccination: Yes Hx Influenza Vaccination: No Hx Pneumococcal Vaccination: Yes - Social History Hx Tobacco Use: Yes Hx Chewing Tobacco Use: No Hx Alcohol Use: No Hx Substance Use: No Hx Substance Use Treatment: No Hx Depression: No Hx Physical Abuse: No Hx Emotional Abuse: No Hx Suspected Abuse: No - Female History Patient is a Female of Child Bearing Age (10 -59 yrs old): Yes Hx Last Menstrual Period: 04/07/17 Patient : No Family Medical History - Family History Father Family History: Unknown Living Status: Hx Family Asthma: No Hx Family Congestive Heart Failure: Yes Hx Family Hypertension: Yes Hx Family Stroke: No Hx Cardiac Disease: Yes Hx Family Diabetes: Yes Hx Family Cancer: No Hx Family;Other: migraine headache both parents Physical Exam - Physical Exam General Appearance: Alert Eyes, Ears, Nose, Throat Exam: normal ENT inspection Neck: non-tender, full range of motion, supple Respiratory: lungs clear, normal breath sounds Cardiovascular/Chest: normal peripheral pulses, regular rate, rhythm, no edema Gastrointestinal/Abdominal: normal bowel sounds, non tender, soft Back Exam: normal inspection, no CVA tenderness Extremity: normal range of motion, non-tender, normal inspection Neurologic: no motor/sensory deficits, alert, normal mood/affect, oriented x 3 Skin Exam: normal color Lymphatic: no adenopathy Progress - Progress Progress: 10/04/18 17:40 Laboratory Tests 10/04/18 10/04/18 10/04/18 15:34 15:48 15:48 WBC 14.1 H RBC 4.74 Hgb 14.8 Hct 44.2 MCV 93.1 MCH 31.3 H MCHC 33.6 RDW 14.3 Plt Count 311 MPV 9.0 Absolute Neuts (auto) 7.70 H Absolute Lymphs (auto) 5.00 H Absolute Monos (auto) 0.90 H Absolute Eos (auto) 0.40 Absolute Basos (auto) 0.20 H Neutrophils % 54.2 Lymphocytes % 35.4 Monocytes % 6.2 Eosinophils % 3.1 Basophils % 1.1 Sodium 139 Potassium 3.7 Chloride 105 Carbon Dioxide 26 Anion Gap 11.7 L BUN 10 Creatinine 0.51 L BUN/Creatinine Ratio 19.6 Random Glucose 84 Serum Osmolality 275.8 Calcium 8.8 Total Bilirubin 0.4 AST 25 ALT 28 Alkaline Phosphatase 90 Serum Total Protein 7.3 Albumin 3.8 Globulin 3.5 Albumin/Globulin Ratio 1.1 Lipase Urine Color Urine Appearance Urine pH Ur Specific [place] Urine Protein Urine Glucose (UA) Urine Ketones Urine Blood Urine Nitrite Urine Bilirubin Urine Urobilinogen Ur Leukocyte Esterase Urine RBC Urine WBC Ur Epithelial Cells Urine Bacteria Urine HCG, Qual Negative 10/04/18 10/04/18 15:48 15:48 WBC RBC Hgb Hct MCV MCH MCHC RDW Plt Count MPV Absolute Neuts (auto) Absolute Lymphs (auto) Absolute Monos (auto) Absolute Eos (auto) Absolute Basos (auto) Neutrophils % Lymphocytes % Monocytes % Eosinophils % Basophils % Sodium Potassium Chloride Carbon Dioxide Anion Gap BUN Creatinine BUN/Creatinine Ratio Random Glucose Serum Osmolality Calcium Total Bilirubin AST ALT Alkaline Phosphatase Serum Total Protein Albumin Globulin Albumin/Globulin Ratio Lipase 36 Urine Color Yellow Urine Appearance Sl cloudy Urine pH 7.0 Ur Specific [place] 1.020 Urine Protein Negative Urine Glucose (UA) Negative Urine Ketones Negative Urine Blood Negative Urine Nitrite Negative Urine Bilirubin Negative Urine Urobilinogen 1.0 Ur Leukocyte Esterase Small H Urine RBC 0 Urine WBC Obscured by epi's Ur Epithelial Cells Tntc Urine Bacteria Obscured by epi's Urine HCG, Qual CT ab/pelvis was negative for acute disease. Patient will follow up with Dr. Jimenez tomorrow for pain control and surgical referral. Care instructions given. E.R. warnings given. Questions were elicited and answered. Patient voiced understanding and agreement with the plan. Departure - Departure Clinical Impression: Hernia of anterior abdominal wall Disposition: Discharge to Home or Self Care Condition: Good Departure Forms: ED Discharge - Pt. Copy, Patient Portal Self Enrollment Instructions: DI for Abdominal Pain-Adult Diet: resume usual diet Activity: increase activity as tolerated Referrals: Cristino Jimenez III, MD [Primary Care Provider] - 1-2 Weeks Home Medications: Ambulatory Orders Lisinopril 40 mg PO DAILY 03/28/18 Additional Instructions: Call Dr. Jimenez tomorrow for further pain control and referral to a surgeon. Return to the E.R. for vomiting or temperature above 100.4.
[2018-10-04] MEDS ORDERED: HYDROcodone 10MG/APAP 325MG 1 EA TAB PO ONE (15:39)
[2018-10-04] MEDS ORDERED: ONDANSETRON INJ 4 MG/2 ML VIAL ONE (16:57)
[2018-10-04] MEDS ORDERED: ONDANSETRON INJ 4 MG/2 ML VIAL IV ONE (17:02)
--- NOTE | 2018-10-04 17:26 | CT ---
EXAM DESCRIPTION: Abdomen/Pelvis w/Contrast CLINICAL HISTORY:48 years Female, pain from umbilical hernia Comparison: February 14, 2018 TECHNIQUE: Contiguous axial CT images of the abdomen and pelvis were obtained. Sagittal and coronal reformats were reviewed. This exam was performed according to our departmental dose-optimization program, which includes automated exposure control, adjustment of the mA and/or kV according to patient size and/or use of iterative reconstruction technique. FINDINGS: Lung bases: Clear. Liver: Mildly enlarged. No focal abnormalities. Gallbladder:Unremarkable. No gallstones. No gallbladder wall thickening or pericholecystic fluid. Spleen:Unremarkable Pancreas: Pancreas is unremarkable. Adrenal glands:Within normal limits. Kidneys/ureters:Within normal limits Stomach/small bowel/colon: Stomach is unremarkable. Small bowel is unremarkable. Colon is unremarkable. Appendix: No evidence of appendicitis. Peritoneum: No free fluid. Vascular structures: within normal limits Lymph nodes: No abnormal lymph nodes. Bladder:Unremarkable. Pelvic organs: No acute abnormality. Small cystic change in the right adnexa. Bones: No acute osseous abnormality. Soft tissues: Postsurgical changes from umbilical hernia repair with mesh. Soft tissue changes in the subcutaneous fat of the umbilicus is unchanged. IMPRESSION: No acute intra-abdominal abnormality. Electronically signed by: Terry Friedman DO 10/04/2018 5:25 PM CELL BIOLOGIST
[2018-10-04] MEDS ORDERED: traMADol HCL 50 MG (ER DISP) # 6 TABS PO ONE (17:41)
[2018-10-04 17:58] VITALS: BP 141/87; TEMP 97.6; O2SAT 96
== END 2018-10-04 17:57 | disposition home or self-care (01) ==
LOC: ER 15:14
DX: K43.9 Ventral hernia without obstruction or gangrene (principal); I50.9 Heart failure, unspecified; J44.9 Chronic obstructive pulmonary disease, unspecified; I11.0 Hypertensive heart disease with heart failure; Z87.891 Personal history of nicotine dependence; Z98.890 Other specified postprocedural states
CPT/HCPCS: 36415; 74177; 80053; 81001; 81025; 83690; 85025; 87086; J2405

== ENCOUNTER 2018-12-30 19:47 | Emergency (ER) | payer SELFPAY ==
--- NOTE | 2018-12-30 20:21 | ED.PDOC ---
History of Present Illness - General Chief Complaint: Respiratory Problem Stated Complaint: cough, congestion, nausea Time Seen by Provider: 12/30/18 20:11 Source: patient Exam Limitations: no limitations - History of Present Illness Comments: Pt has had sorethroat and cough x 2-3 days with subjective fever and nausea Timing/Duration: getting worse Cough Quality/Degree: severe Possible Cause: occasional episodes Improving Factors: nothing Worsening Factors: nothing Associated Symptoms: cough, fever/chills, lightheadedness, nasal congestion, shortness of breath, sore throat Respiratory Risk Factors: no cause identified Allergies/Adverse Reactions: Allergies Erythromycin Allergy (Verified 09/27/18 23:11) Hydromorphone [From Dilaudid] Allergy (Verified 02/14/18 21:14) Ketorolac Tromethamine [From Toradol] Allergy (Verified 09/27/18 23:11) Morphine Allergy (Verified 09/27/18 23:11) Penicillins Allergy (Verified 09/27/18 23:11) Sumatriptan [From Imitrex] Allergy (Verified 09/27/18 23:11) Home Medications: Ambulatory Orders Lisinopril 40 mg PO DAILY 03/28/18 Benzonatate Perles [Tessalon Perles] 200 mg PO TID PRN #30 cap 12/30/18 Cephalexin [Keflex] 750 mg PO TID #30 cap 12/30/18 Review of Systems - Review of Systems Constitutional: States: chills, fever, malaise, weakness EENTM: States: nose congestion, throat pain Respiratory: States: cough, short of breath Cardiology: States: no symptoms reported Gastrointestinal/Abdominal: States: nausea. Denies: abdominal pain, vomiting Genitourinary: States: no symptoms reported Musculoskeletal: States: muscle pain Skin: States: no symptoms reported Neurological: States: headache Endocrine: States: no symptoms reported Hematologic/Lymphatic: States: no symptoms reported Past Medical History (General) - Patient Medical History Hx Seizures: No Hx Stroke: No Hx Dementia: No Hx Asthma: No Hx of COPD: Yes Hx Cardiac Disorders: Yes - fluid around heart, cyst to right heart Hx Congestive Heart Failure: Yes Hx Pacemaker: No Hx Hypertension: Yes Hx Thyroid Disease: No Hx Diabetes: No Hx Gastroesophageal Reflux: No Hx Renal Disease: No Hx Cancer: No Hx of HIV: No Hx Hepatitis C: No Hx MRSA: No Surgical History: appendectomy, other - Vaccination History Hx Tetanus, Diphtheria Vaccination: Yes Hx Influenza Vaccination: No Hx Pneumococcal Vaccination: Yes - Social History Hx Tobacco Use: Yes Hx Chewing Tobacco Use: No Hx Alcohol Use: No Hx Substance Use: No Hx Substance Use Treatment: No Hx Depression: No Hx Physical Abuse: No Hx Emotional Abuse: No Hx Suspected Abuse: No - Female History Hx Last Menstrual Period: 04/07/17 Patient : No Family Medical History - Family History Father Family History: Unknown Living Status: Hx Family Asthma: No Hx Family Congestive Heart Failure: Yes Hx Family Hypertension: Yes Hx Family Stroke: No Hx Cardiac Disease: Yes Hx Family Diabetes: Yes Hx Family Cancer: No Hx Family;Other: migraine headache both parents Physical Exam - Physical Exam General Appearance: Alert, Obvious distress Eye Exam: bilateral normal ENT Exam: hearing grossly normal, pharynx normal Neck: non-tender, full range of motion, normal inspection Respiratory: no respiratory distress, rhonchi, wheezing, expiration Cardiovascular/Chest: regular rate, rhythm, no edema Gastrointestinal/Abdominal: normal bowel sounds, non tender, soft Extremity: normal range of motion, non-tender, normal inspection Neurologic: alert, normal mood/affect, oriented x 3 Skin Exam: normal color, warm/dry Lymphatic: no adenopathy Departure - Departure Clinical Impression: Bronchitis, acute Qualifiers: Bronchitis organism: unspecified organism Qualified Code(s): J20.9 - Acute bronchitis, unspecified Leukocytosis Qualifiers: Leukocytosis type: unspecified Qualified Code(s): D72.829 - Elevated white blood cell count, unspecified Disposition: Discharge to Home or Self Care Condition: Fair Departure Forms: ED Discharge - Pt. Copy, Patient Portal Self Enrollment Referrals: Cristino Jimenez III, MD [Primary Care Provider] - 1-2 Weeks Prescriptions: Benzonatate Perles [Tessalon Perles] 200 mg PO TID PRN #30 cap PRN Reason: Cough Cephalexin [Keflex] 750 mg PO TID #30 cap Home Medications: Ambulatory Orders Lisinopril 40 mg PO DAILY 03/28/18 Benzonatate Perles [Tessalon Perles] 200 mg PO TID PRN #30 cap 12/30/18 Cephalexin [Keflex] 750 mg PO TID #30 cap 12/30/18
[2018-12-30 21:39] VITALS: BP 118/58; TEMP 99; O2SAT 95
== END 2018-12-30 21:39 | disposition home or self-care (01) ==
LOC: ER 19:47
DX: J44.9 Chronic obstructive pulmonary disease, unspecified (principal); J20.9 Acute bronchitis, unspecified; D72.829 Elevated white blood cell count, unspecified; I50.9 Heart failure, unspecified; I11.0 Hypertensive heart disease with heart failure; Z87.891 Personal history of nicotine dependence; Z79.899 Other long term (current) drug therapy; Z88.1 Allergy status to other antibiotic agents; Z88.5 Allergy status to narcotic agent; Z88.0 Allergy status to penicillin

== ENCOUNTER 2019-04-10 23:43 | Emergency (ER) | payer SELFPAY ==
[2019-04-11] MEDS ORDERED: ACETAMINOPHEN-CAFF-BUTALBITAL 1 EA TAB PO ONE (00:05)
--- NOTE | 2019-04-11 00:19 | RAD ---
EXAM DESCRIPTION: XR Ankle,Left 3 Views CLINICAL HISTORY: 49 years Female anterior pain 1 day TECHNIQUE: Three views of the left ankle are provided. COMPARISON: No prior exams provided for comparison. FINDINGS: There is no acute left ankle fracture or dislocation. The ankle mortise and talar dome are preserved. Productive changes at the medial malleolus could reflect prior injury. Posterior and plantar calcaneal enthesophytes. No aggressive osseous lesion IMPRESSION: No acute findings in the left ankle. Electronically signed by: Yoselin Ellis MD 04/11/2019 12:17 AM CDT
--- NOTE | 2019-04-11 00:35 | ED.PDOC ---
History of Present Illness - General Chief Complaint: Lower Extremity Injury Stated Complaint: lower left leg pain Time Seen by Provider: 04/10/19 23:46 Source: patient Exam Limitations: no limitations - History of Present Illness Initial Comments: the patient is a 49-year-old female presenting to the emergency room secondary to 12 hours of discomfort to the anterior left ankle. She does not remember injuring it. She woke up with the pain. There is no obvious swelling or deformity. No bruising or laceration. No crepitus. The patient is overweight. Pain is worse with movement and with weightbearing. Sensation is preserved. She is vascularly preserved. Severity: moderate Improving Factors: nothing Worsening Factors: movement Associated Symptoms: denies symptoms Allergies/Adverse Reactions: Allergies Erythromycin Allergy (Verified 02/23/19 02:05) Hydromorphone [From Dilaudid] Allergy (Verified 02/23/19 02:05) Ketorolac Tromethamine [From Toradol] Allergy (Verified 02/23/19 02:05) Morphine Allergy (Verified 02/23/19 02:05) Penicillins Allergy (Verified 02/23/19 02:05) Sumatriptan [From Imitrex] Allergy (Verified 02/23/19 02:05) Home Medications: Ambulatory Orders Lisinopril 40 mg PO BID 03/28/18 Clindamycin HCl 150 mg PO TID 7 Days #21 cap 02/17/19 Sulfa/Trimeth 800/160 (Ds) Tab [Bactrim DS] 1 tablet PO BID #14 tab 02/17/19 Carvedilol 6.25 mg PO BID 02/23/19 HYDROcodone 7.5MG/APAP 325MG [[place] 7.5/325] 1 tab PO PRN 02/23/19 Phentermine HCl 37.5 mg PO DAILY 02/23/19 Tramadol HCl 50 mg PO Q8HR PRN #20 tab 04/11/19 Review of Systems - Review of Systems Constitutional: States: no symptoms reported EENTM: States: no symptoms reported Respiratory: States: no symptoms reported Cardiology: States: no symptoms reported Gastrointestinal/Abdominal: States: no symptoms reported Genitourinary: States: no symptoms reported Musculoskeletal: States: see HPI Skin: States: no symptoms reported Neurological: States: no symptoms reported Endocrine: States: no symptoms reported All other Systems: No Change from Baseline Past Medical History (General) - Patient Medical History Hx Seizures: No Hx Stroke: No Hx Dementia: No Hx Asthma: No Hx of COPD: Yes Hx Cardiac Disorders: Yes - fluid around heart, cyst to right heart Hx Congestive Heart Failure: Yes Hx Pacemaker: No Hx Hypertension: Yes - uncontrolled Hx Thyroid Disease: No Hx Diabetes: No Hx Gastroesophageal Reflux: No Hx Renal Disease: No Hx Cancer: No Hx of HIV: No Hx Hepatitis C: No Hx MRSA: No - Vaccination History Hx Tetanus, Diphtheria Vaccination: Yes Hx Influenza Vaccination: No Hx Pneumococcal Vaccination: Yes - Social History Hx Tobacco Use: Yes Hx Chewing Tobacco Use: No Hx Alcohol Use: No Hx Substance Use: No Hx Substance Use Treatment: No Hx Depression: No Hx Physical Abuse: No Hx Emotional Abuse: No Hx Suspected Abuse: No - Female History Hx Last Menstrual Period: 04/07/17 Patient : No Family Medical History - Family History Father Family History: Unknown Living Status: Hx Family Asthma: No Hx Family Congestive Heart Failure: Yes Hx Family Hypertension: Yes Hx Family Stroke: No Hx Cardiac Disease: Yes Hx Family Diabetes: Yes Hx Family Cancer: No Hx Family;Other: migraine headache both parents Physical Exam - Physical Exam General Appearance: Alert, Comfortable, No apparent distress Eye Exam: bilateral normal Ears, Nose, Throat: hearing grossly normal, normal ENT inspection Neck: full range of motion, supple Respiratory: no respiratory distress, no accessory muscle use Cardiovascular/Chest: normal peripheral pulses, no edema, other - regular rate Gastrointestinal/Abdominal: soft - obese Rectal Exam: deferred Back Exam: no CVA tenderness, no vertebral tenderness Extremity: no pedal edema, normal capillary refill, other - see history of present illness Neurologic: medical science liaison II-XII nml as tested, alert, normal mood/affect, oriented x 3 Skin Exam: normal color Progress - Progress Progress: 04/11/19 00:35 the patient's 49-year-old female presenting with pain to the anterior left ankle of less than a day's duration. No obvious inciting trauma. X-ray shows no obvious acute abnormality. I'm uncertain if this is a mild acute inflammation of arthritis in the anterior aspect of the joint or if this is a mild tendinitis. She can continue [id number] anti-inflammatories such as Motrin or Aleve. She'll be written for tramadol additionally for as needed use. She does need to do range of motion exercises for the ankle when she is not weightbearing. If she is not improving over the next week then she needs to follow-up with her primary care doctor. For now I'm going to avoid immobilizing the joint. ER warnings were given. Departure - Departure Clinical Impression: Ankle pain, left Qualifiers: Chronicity: acute Qualified Code(s): M25.572 - Pain in left ankle and joints of left foot Disposition: Discharge to Home or Self Care Condition: Fair Departure Forms: ED Discharge - Pt. Copy, Patient Portal Self Enrollment Diet: regular diet Activity: increase activity as tolerated Referrals: Cristino Jimenez III, MD [Primary Care Provider] - 1-2 Weeks Prescriptions: Tramadol HCl 50 mg PO Q8HR PRN #20 tab PRN Reason: Moderate Pain Home Medications: Ambulatory Orders Lisinopril 40 mg PO BID 03/28/18 Clindamycin HCl 150 mg PO TID 7 Days #21 cap 02/17/19 Sulfa/Trimeth 800/160 (Ds) Tab [Bactrim DS] 1 tablet PO BID #14 tab 02/17/19 Carvedilol 6.25 mg PO BID 02/23/19 HYDROcodone 7.5MG/APAP 325MG [[place] 7.5/325] 1 tab PO PRN 02/23/19 Phentermine HCl 37.5 mg PO DAILY 02/23/19 Tramadol HCl 50 mg PO Q8HR PRN #20 tab 04/11/19 Additional Instructions: the patient's 49-year-old female presenting with pain to the anterior left ankle of less than a day's duration. No obvious inciting trauma. X-ray shows no obvious acute abnormality. I'm uncertain if this is a mild acute inflammation of arthritis in the anterior aspect of the joint or if this is a mild tendinitis. She can continue [id number] anti-inflammatories such as Motrin or Aleve. She'll be written for tramadol additionally for as needed use. She does need to do range of motion exercises for the ankle when she is not weightbearing. If she is not improving over the next week then she needs to follow-up with her primary care doctor. For now I'm going to avoid immobilizing the joint. ER warnings were given.
[2019-04-11 00:37] VITALS: BP 126/78; TEMP 97.5; O2SAT 97
== END 2019-04-11 00:45 | disposition home or self-care (01) ==
LOC: ER 23:43
DX: M25.572 Pain in left ankle and joints of left foot (principal); J44.9 Chronic obstructive pulmonary disease, unspecified; I50.9 Heart failure, unspecified; I11.0 Hypertensive heart disease with heart failure; Z87.891 Personal history of nicotine dependence; Z79.899 Other long term (current) drug therapy; Z88.1 Allergy status to other antibiotic agents; Z88.5 Allergy status to narcotic agent; Z88.0 Allergy status to penicillin; Z88.8 Allergy status to other drugs, medicaments and biological substances

== ENCOUNTER 2019-04-15 22:57 | Emergency (ER) | payer SELFPAY ==
[2019-04-15] MEDS ORDERED: HALOPERIDOL LACTATE INJ 5 MG/ML VIAL IV ONE (23:16)
[2019-04-15] MEDS ORDERED: diphenhydrAMINE HCL 50 MG/ML VIAL IV ONE (23:17)
--- NOTE | 2019-04-15 23:20 | ED.PDOC ---
History of Present Illness - General Time Seen by Provider: 04/15/19 23:15 Source: patient - History of Present Illness Initial Comments: PT C/O MIGRAINE DOMÍNGUEZ ONSET TODAY. LEFT WORK AFTER SHE THREW UP. USUALLY TAKES "HYDROCODONE BUT I'M OUT" Timing/Duration: other - TODAY Severity: moderate Improving Factors: nothing Worsening Factors: other - OIGHT, SOUND Allergies/Adverse Reactions: Allergies Erythromycin Allergy (Verified 02/23/19 02:05) Hydromorphone [From Dilaudid] Allergy (Verified 02/23/19 02:05) Ketorolac Tromethamine [From Toradol] Allergy (Verified 02/23/19 02:05) Morphine Allergy (Verified 02/23/19 02:05) Penicillins Allergy (Verified 02/23/19 02:05) Sumatriptan [From Imitrex] Allergy (Verified 02/23/19 02:05) Home Medications: Ambulatory Orders Lisinopril 40 mg PO BID 03/28/18 Clindamycin HCl 150 mg PO TID 7 Days #21 cap 02/17/19 Sulfa/Trimeth 800/160 (Ds) Tab [Bactrim DS] 1 tablet PO BID #14 tab 02/17/19 Carvedilol 6.25 mg PO BID 02/23/19 HYDROcodone 7.5MG/APAP 325MG [[place] 7.5/325] 1 tab PO PRN 02/23/19 Phentermine HCl 37.5 mg PO DAILY 02/23/19 Tramadol HCl 50 mg PO Q8HR PRN #20 tab 04/11/19 Review of Systems - Review of Systems Constitutional: Denies: chills, fever EENTM: Denies: ear pain, throat pain Respiratory: States: no symptoms reported Cardiology: States: no symptoms reported Gastrointestinal/Abdominal: States: nausea, vomiting. Denies: abdominal pain Genitourinary: States: no symptoms reported Musculoskeletal: States: no symptoms reported Skin: States: no symptoms reported Neurological: States: headache. Denies: numbness, weakness Endocrine: States: no symptoms reported Hematologic/Lymphatic: States: no symptoms reported Past Medical History (General) - Patient Medical History Hx Seizures: No Hx Stroke: No Hx Dementia: No Hx Asthma: No Hx of COPD: Yes Hx Cardiac Disorders: Yes - fluid around heart, cyst to right heart Hx Congestive Heart Failure: Yes Hx Pacemaker: No Hx Hypertension: Yes - uncontrolled Hx Thyroid Disease: No Hx Diabetes: No Hx Gastroesophageal Reflux: No Hx Renal Disease: No Hx Cancer: No Hx of HIV: No Hx Hepatitis C: No Hx MRSA: No Surgical History: appendectomy - Vaccination History Hx Tetanus, Diphtheria Vaccination: Yes Hx Influenza Vaccination: No Hx Pneumococcal Vaccination: No Immunizations Up to Date: Yes - Social History Hx Tobacco Use: Yes Hx Chewing Tobacco Use: No Hx Alcohol Use: No Hx Substance Use: No Hx Substance Use Treatment: No Hx Depression: No Feels Threatened In Home Enviroment: No Feels Threatened In a Relationship: No Hx Physical Abuse: No Hx Emotional Abuse: No Hx Suspected Abuse: No - Activities of Daily Living Hospice Agency (if applicable):: None - Female History Patient is a Female of Child Bearing Age (10 -59 yrs old): No Hx Last Menstrual Period: 04/07/17 Patient : No - Triage Comment ED Triage Comment: stats domínguez has gotton worse throught out day Family Medical History - Family History Father Family History: Unknown Living Status: Hx Family Asthma: No Hx Family Congestive Heart Failure: Yes Hx Family Hypertension: Yes Hx Family Stroke: No Hx Cardiac Disease: Yes Hx Family Diabetes: Yes Hx Family Cancer: No Hx Family;Other: migraine headache both parents Physical Exam - Physical Exam General Appearance: Comfortable, Obese Eye Exam: bilateral normal Ears, Nose, Throat: hearing grossly normal, normal ENT inspection Neck: non-tender, full range of motion, supple Respiratory: lungs clear, normal breath sounds Cardiovascular/Chest: regular rate, rhythm, no murmur Gastrointestinal/Abdominal: non tender, soft, no organomegaly Back Exam: normal inspection, no CVA tenderness Extremity: normal range of motion, non-tender, normal inspection Neurologic: meat cutter II-XII nml as tested, no motor/sensory deficits, alert, normal mood/affect, oriented x 3 Skin Exam: normal color, warm/dry Lymphatic: no adenopathy Progress - Progress Progress: 04/16/19 00:19 FEELS BETTER. Departure - Departure Clinical Impression: Migraine Qualifiers: Migraine type: without aura Status migrainosus presence: without status migrainosus Intractability: not intractable Qualified Code(s): G43.009 - Migraine without aura, not intractable, without status migrainosus HTN (hypertension) Qualifiers: Hypertension type: essential hypertension Qualified Code(s): I10 - Essential (primary) hypertension Time of Disposition: 00:21 Disposition: Discharge to Home or Self Care Condition: Good Instructions: Migraine Headache (DC) Referrals: Cristino Jimenez III, MD [Primary Care Provider] - 1-2 Weeks Home Medications: Ambulatory Orders Lisinopril 40 mg PO BID 03/28/18 Clindamycin HCl 150 mg PO TID 7 Days #21 cap 02/17/19 Sulfa/Trimeth 800/160 (Ds) Tab [Bactrim DS] 1 tablet PO BID #14 tab 02/17/19 Carvedilol 6.25 mg PO BID 02/23/19 HYDROcodone 7.5MG/APAP 325MG [[place] 7.5/325] 1 tab PO PRN 02/23/19 Phentermine HCl 37.5 mg PO DAILY 02/23/19 Tramadol HCl 50 mg PO Q8HR PRN #20 tab 04/11/19
[2019-04-16 00:37] VITALS: BP 122/87; TEMP 98.3; O2SAT 96
== END 2019-04-16 00:35 | disposition home or self-care (01) ==
LOC: ER 22:57
DX: G43.009 Migraine without aura, not intractable, without status migrainosus (principal); J44.9 Chronic obstructive pulmonary disease, unspecified; I50.9 Heart failure, unspecified; I11.0 Hypertensive heart disease with heart failure; Z87.891 Personal history of nicotine dependence; Z79.899 Other long term (current) drug therapy; Z88.1 Allergy status to other antibiotic agents; Z88.5 Allergy status to narcotic agent; Z88.0 Allergy status to penicillin
CPT/HCPCS: J1200; J1630

== ENCOUNTER 2019-05-07 02:53 | Emergency (ER) | payer SELFPAY ==
[2019-05-07 03:16] VITALS: TEMP 97.2
--- NOTE | 2019-05-07 03:38 | ED.PDOC ---
History of Present Illness - General Chief Complaint: Upper Extremity Injury Stated Complaint: Right Shoulder pain after fall 4 days ago Time Seen by Provider: 05/07/19 03:16 Source: patient Exam Limitations: no limitations - History of Present Illness Initial Comments: Patient presents with right shoulder pain after she fell off of her porch 4 days ago and landed on it. The pain is lateral over the greater tuberosity of the humerus, radiates down the right arm,tingling at the level of the lower arm and throbbing at the level of the proximal humerus, constant but intermittent in intensity, worse with movement, better with rest, no previous injuries. She says she was taking hydrocodone at home because she is "supposed to have hernia surgery" in [place]. She says she ran out of that medication. She does not know the surgeon's name. She states that Dr. Jimenez is her regular doctor. She says she has not seen him, yet, regarding this injury. No other complaints. Timing/Duration: other - 4 days Severity: moderate Improving Factors: rest Worsening Factors: movement Associated Symptoms: denies symptoms Allergies/Adverse Reactions: Allergies Erythromycin Allergy (Verified 05/07/19 03:17) Hydromorphone [From Dilaudid] Allergy (Verified 05/07/19 03:17) Ketorolac Tromethamine [From Toradol] Allergy (Verified 05/07/19 03:17) Morphine Allergy (Verified 05/07/19 03:17) Penicillins Allergy (Verified 05/07/19 03:17) Sumatriptan [From Imitrex] Allergy (Verified 05/07/19 03:17) Home Medications: Ambulatory Orders Lisinopril 40 mg PO BID 03/28/18 Clindamycin HCl 150 mg PO TID 7 Days #21 cap 02/17/19 Sulfa/Trimeth 800/160 (Ds) Tab [Bactrim DS] 1 tablet PO BID #14 tab 02/17/19 Carvedilol 6.25 mg PO BID 02/23/19 HYDROcodone 7.5MG/APAP 325MG [[place] 7.5/325] 1 tab PO PRN 02/23/19 Phentermine HCl 37.5 mg PO DAILY 02/23/19 Tramadol HCl 50 mg PO Q8HR PRN #20 tab 04/11/19 Review of Systems - Review of Systems Constitutional: States: no symptoms reported EENTM: States: no symptoms reported Respiratory: States: no symptoms reported Cardiology: States: no symptoms reported Gastrointestinal/Abdominal: States: no symptoms reported, abdominal pain Musculoskeletal: States: see HPI Skin: States: no symptoms reported Neurological: States: no symptoms reported Endocrine: States: no symptoms reported Hematologic/Lymphatic: States: no symptoms reported Past Medical History (General) - Patient Medical History Hx Seizures: No Hx Stroke: No Hx Dementia: No Hx Asthma: No Hx of COPD: Yes Hx Cardiac Disorders: Yes - fluid around heart, cyst to right heart Hx Congestive Heart Failure: Yes Hx Pacemaker: No Hx Hypertension: Yes Hx Thyroid Disease: No Hx Diabetes: No Hx Gastroesophageal Reflux: No Hx Renal Disease: No Hx Cancer: No Hx of HIV: No Hx Hepatitis C: No Hx MRSA: No Surgical History: appendectomy - Vaccination History Hx Tetanus, Diphtheria Vaccination: Yes Hx Influenza Vaccination: No Hx Pneumococcal Vaccination: No - Social History Hx Tobacco Use: Yes Hx Chewing Tobacco Use: No Hx Alcohol Use: No Hx Substance Use: No Hx Substance Use Treatment: No Hx Depression: No Hx Physical Abuse: No Hx Emotional Abuse: No Hx Suspected Abuse: No - Activities of Daily Living Hospice Agency (if applicable):: None - Female History Hx Last Menstrual Period: 04/07/17 Patient : No Family Medical History - Family History Father Family History: Unknown Living Status: Hx Family Asthma: No Hx Family Congestive Heart Failure: Yes Hx Family Hypertension: Yes Hx Family Stroke: No Hx Cardiac Disease: Yes Hx Family Diabetes: Yes Hx Family Cancer: No Hx Family;Other: migraine headache both parents Physical Exam - Physical Exam General Appearance: Alert Respiratory: lungs clear, normal breath sounds Cardiovascular/Chest: normal peripheral pulses, regular rate, rhythm Gastrointestinal/Abdominal: normal bowel sounds, non tender, soft Extremity: other - TTP over right greater tuberosity. Pain with extension of the right upper arm and elevation of the right upper arm. Patient has 5/5 strength to AROM to elevation, adduction, abduction, extension and rotation but elevation motion causes pain. Neurologic: no motor/sensory deficits, alert, normal mood/affect, oriented x 3 Skin Exam: normal color Lymphatic: no adenopathy Progress - Progress Progress: 05/07/19 04:09 Radiographs of the right shoulder showed no dislocations nor fractures. Care instructions given. E.R. warnings given. Questions were elicited and answered. Patient voiced understanding and agreement with the plan. Departure - Departure Clinical Impression: Contusion, upper arm Disposition: Discharge to Home or Self Care Condition: Good Departure Forms: ED Discharge - Pt. Copy, Patient Portal Self Enrollment Instructions: Contusion (DC) Diet: other - as per your regular doctor Activity: increase activity as tolerated Referrals: Cristino Jimenez III, MD [Primary Care Provider] - 1-2 Weeks Home Medications: Ambulatory Orders Lisinopril 40 mg PO BID 03/28/18 Clindamycin HCl 150 mg PO TID 7 Days #21 cap 02/17/19 Sulfa/Trimeth 800/160 (Ds) Tab [Bactrim DS] 1 tablet PO BID #14 tab 02/17/19 Carvedilol 6.25 mg PO BID 02/23/19 HYDROcodone 7.5MG/APAP 325MG [[place] 7.5/325] 1 tab PO PRN 02/23/19 Phentermine HCl 37.5 mg PO DAILY 02/23/19 Tramadol HCl 50 mg PO Q8HR PRN #20 tab 04/11/19 Additional Instructions: Ice to the painful area three times per day for three days. You can try switching to a heating pad after 3 days. Return to activity as tolerated.
--- NOTE | 2019-05-07 04:05 | RAD ---
RIGHT SHOULDER, TWO VIEWS, XR. 05/07/2019 CLINICAL HISTORY: Pain after fall COMPARISON: None. TECHNIQUE: Two views of the right shoulder. FINDINGS: There is no fracture. No dislocation. No intra-articular opaque loose body. Acromioclavicular joint alignment is maintained. Included right lung is well-expanded. The imaged right clavicle, scapula, and right ribs appear normal. IMPRESSION: 1. Unremarkable right shoulder. Electronically signed by: Neli Alegria DO 05/07/2019 4:04 AM CDT
[2019-05-07 04:19] VITALS: BP 165/99; O2SAT 98
== END 2019-05-07 04:20 | disposition home or self-care (01) ==
LOC: ER 02:53
DX: S40.021A Contusion of right upper arm, initial encounter (principal); I11.0 Hypertensive heart disease with heart failure; I50.9 Heart failure, unspecified; J44.9 Chronic obstructive pulmonary disease, unspecified; Z87.891 Personal history of nicotine dependence; Z79.899 Other long term (current) drug therapy; Z88.8 Allergy status to other drugs, medicaments and biological substances; Z88.0 Allergy status to penicillin; Z88.5 Allergy status to narcotic agent; Z88.1 Allergy status to other antibiotic agents; W17.89XA Other fall from one level to another, initial encounter; Y92.008 Other place in unspecified non-institutional (private) residence as the place of occurrence of the external cause

== ENCOUNTER 2019-05-15 02:06 | Emergency (ER) | payer SELFPAY ==
[2019-05-15 02:30] VITALS: TEMP 97.9
--- NOTE | 2019-05-15 03:02 | ED.PDOC ---
History of Present Illness - General Chief Complaint: Lower Extremity Injury Stated Complaint: burning and swelling for a week Time Seen by Provider: 05/15/19 02:48 Source: patient Exam Limitations: no limitations - History of Present Illness Initial Comments: patient comes in today with a one-week history of left foot pain with some swelling and burning discomfort. The pain is intermittent but worse at night. She's had no injury to the area, no trauma, no change in footwear, and no increase in activity. Patient has not had the pain before and otherwise is doing her normal usual health. She does have a past medical history of hypertension and she is a smoker. She does not have any diabetes, thyroid issues, asthma, or arthritis. Occurred: last week Pain - Lower Extremity: moderate: Left Foot Method of Injury: unknown Improving Factors: nothing Worsening Factors: nothing Allergies/Adverse Reactions: Allergies Erythromycin Allergy (Verified 05/07/19 03:17) Hydromorphone [From Dilaudid] Allergy (Verified 05/07/19 03:17) Ketorolac Tromethamine [From Toradol] Allergy (Verified 05/07/19 03:17) Morphine Allergy (Verified 05/07/19 03:17) Penicillins Allergy (Verified 05/07/19 03:17) Sumatriptan [From Imitrex] Allergy (Verified 05/07/19 03:17) Home Medications: Ambulatory Orders Lisinopril 40 mg PO BID 03/28/18 Clindamycin HCl 150 mg PO TID 7 Days #21 cap 02/17/19 Sulfa/Trimeth 800/160 (Ds) Tab [Bactrim DS] 1 tablet PO BID #14 tab 02/17/19 Carvedilol 6.25 mg PO BID 02/23/19 HYDROcodone 7.5MG/APAP 325MG [[place] 7.5/325] 1 tab PO PRN 02/23/19 Phentermine HCl 37.5 mg PO DAILY 02/23/19 Tramadol HCl 50 mg PO Q8HR PRN #20 tab 04/11/19 Review of Systems - Review of Systems Constitutional: States: no symptoms reported. Denies: chills, fever EENTM: States: no symptoms reported Respiratory: States: no symptoms reported. Denies: cough Cardiology: States: no symptoms reported. Denies: chest pain Gastrointestinal/Abdominal: States: no symptoms reported. 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 heart Hx Congestive Heart Failure: Yes Hx Pacemaker: No Hx Hypertension: Yes Hx Thyroid Disease: No Hx Diabetes: No Hx Gastroesophageal Reflux: No Hx Renal Disease: No Hx Cancer: No Hx of HIV: No Hx Hepatitis C: No Hx MRSA: No Surgical History: appendectomy, other - Vaccination History Hx Tetanus, Diphtheria Vaccination: Yes Hx Influenza Vaccination: No Hx Pneumococcal Vaccination: No Immunizations Up to Date: Yes - Social History Hx Tobacco Use: Yes Hx Chewing Tobacco Use: No Hx Alcohol Use: No Hx Substance Use: No Hx Substance Use Treatment: No Hx Depression: No Feels Threatened In Home Enviroment: No Feels Threatened In a Relationship: No Hx Physical Abuse: No Hx Emotional Abuse: No Hx Suspected Abuse: No - Activities of Daily Living Hospice Agency (if applicable):: None - Female History Patient is a Female of Child Bearing Age (10 -59 yrs old): Yes Hx Last Menstrual Period: 04/07/17 Patient : No Family Medical History - Family History Father Family History: Unknown Living Status: Hx Family Asthma: No Hx Family Congestive Heart Failure: Yes Hx Family Hypertension: Yes Hx Family Stroke: No Hx Cardiac Disease: Yes Hx Family Diabetes: Yes Hx Family Cancer: No Hx Family;Other: migraine headache both parents Physical Exam - Physical Exam General Appearance: Alert, Comfortable, No apparent distress Eyes, Ears, Nose, Throat: PERRL/EOMI, normal ENT inspection, TMs normal Neck: non-tender, full range of motion, supple Cardiovascular/Respiratory: regular rate, rhythm, no M/R/G, normal peripheral pulses, normal breath sounds, no respiratory distress Gastrointestinal/Abdominal: non-tender Back: normal inspection Foot: soft tissue tenderness - worse at base of 5th toe but no deformity and no bony tenderness, no erythema no calor, mild lateral malleolus swelling, swelling Neuro/Tendon: normal sensation, normal motor functions, normal tendon functions, no evidence tendon injury 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, oriented x 3 Progress - Results/Orders Results/Orders: 05/15/19 03:27 Amitriptyline HCl [Elavil] 25 mg PO ONCE ONE Laboratory Results Sodium 138 mmol/L (135-145) 05/15/19 02:48 Potassium 4.1 mmol/L (3.6-5.0) 05/15/19 02:48 Chloride 104 mmol/L (101-111) 05/15/19 02:48 Carbon Dioxide 26 mmol/L (21-31) 05/15/19 02:48 Anion Gap 12.1 (12-18) 05/15/19 02:48 BUN 12 mg/dL (7-18) 05/15/19 02:48 Creatinine 0.78 mg/dL (0.6-1.3) 05/15/19 02:48 BUN/Creatinine Ratio 15.4 (10-20) 05/15/19 02:48 Random Glucose 94 mg/dL (70-105) 05/15/19 02:48 Serum Osmolality 275.2 mOsm/L (275-295) 05/15/19 02:48 Calcium 9.0 mg/dL (8.4-10.2) 05/15/19 02:48 Total Bilirubin 0.3 mg/dL (0.2-1.0) 05/15/19 02:48 AST 35 IU/L (10-42) 05/15/19 02:48 ALT 48 IU/L (10-60) 05/15/19 02:48 Alkaline Phosphatase 83 IU/L (42-121) 05/15/19 02:48 Serum Total Protein 7.3 gm/dL (6.4-8.2) 05/15/19 02:48 Albumin 3.7 g/dl (3.2-5.5) 05/15/19 02:48 Globulin 3.6 gm/dL (2.3-3.5) H 05/15/19 02:48 Albumin/Globulin Ratio 1.0 (1.1-1.9) L 05/15/19 02:48 Departure - Departure Clinical Impression: Neuropathy Disposition: Discharge to Home or Self Care Condition: Good Departure Forms: ED Discharge - Pt. Copy, Patient Portal Self Enrollment Instructions: DI for Leg Pain Referrals: Cristino Jimenez III, MD [Primary Care Provider] - 1-2 Weeks Home Medications: Ambulatory Orders Lisinopril 40 mg PO BID 03/28/18 Clindamycin HCl 150 mg PO TID 7 Days #21 cap 02/17/19 Sulfa/Trimeth 800/160 (Ds) Tab [Bactrim DS] 1 tablet PO BID #14 tab 02/17/19 Carvedilol 6.25 mg PO BID 02/23/19 HYDROcodone 7.5MG/APAP 325MG [[place] 7.5/325] 1 tab PO PRN 02/23/19 Phentermine HCl 37.5 mg PO DAILY 02/23/19 Tramadol HCl 50 mg PO Q8HR PRN #20 tab 04/11/19 Additional Instructions: follow up with PCP in clinic on Friday
[2019-05-15] MEDS ORDERED: AMITRIPTYLINE HCL 25 MG TAB PO ONE (03:27)
[2019-05-15 03:42] VITALS: BP 170/90; O2SAT 99
== END 2019-05-15 03:35 | disposition home or self-care (01) ==
LOC: ER 02:06
DX: G62.9 Polyneuropathy, unspecified (principal); J44.9 Chronic obstructive pulmonary disease, unspecified; I50.9 Heart failure, unspecified; I11.0 Hypertensive heart disease with heart failure; F17.200 Nicotine dependence, unspecified, uncomplicated; Z79.899 Other long term (current) drug therapy; Z88.8 Allergy status to other drugs, medicaments and biological substances; Z88.2 Allergy status to sulfonamides; Z88.5 Allergy status to narcotic agent; Z88.1 Allergy status to other antibiotic agents

== ENCOUNTER 2019-07-15 13:02 | Emergency (ER) | payer SELFPAY ==
[2019-07-15] MEDS ORDERED: ONDANSETRON INJ 4 MG/2 ML VIAL IV ONE (13:49)
[2019-07-15] MEDS ORDERED: fentaNYL CITRATE INJ 50 MCG/ML AMP IV ONE (13:50)
--- NOTE | 2019-07-15 14:05 | ED.PDOC ---
History of Present Illness - General Chief Complaint: Skin/Abrasion/Tear Stated Complaint: Skin irritation to R axillary area Time Seen by Provider: 07/15/19 13:37 Source: patient, RN notes reviewed, Vital Signs reviewed Exam Limitations: no limitations - History of Present Illness Initial Comments: patient noticed right axilla irritation and itching starting yesterday. He came significantly worse to the point of even clothing touching it caused her pain. Patient denies any fever or chills. She states that there is a slight rash under her axilla. She shaved her armpits a few days ago. Eyes any fevers, chills, dizziness, chest pain, shortness of breath, nausea, vomiting, diarrhea. She does have right axillary itching and pain. Patient did have chickenpox as a child. Timing/Duration: 24 hours Severity: moderate Improving Factors: nothing Worsening Factors: other - anything touching her skin Associated Symptoms: rash, other - pruritus Allergies/Adverse Reactions: Allergies Erythromycin Allergy (Verified 05/07/19 03:17) Hydromorphone [From Dilaudid] Allergy (Verified 05/07/19 03:17) Ketorolac Tromethamine [From Toradol] Allergy (Verified 05/07/19 03:17) Morphine Allergy (Verified 05/07/19 03:17) Penicillins Allergy (Verified 05/07/19 03:17) Sumatriptan [From Imitrex] Allergy (Verified 05/07/19 03:17) Home Medications: Ambulatory Orders Lisinopril 40 mg PO BID 03/28/18 Clindamycin HCl 150 mg PO TID 7 Days #21 cap 02/17/19 Sulfa/Trimeth 800/160 (Ds) Tab [Bactrim DS] 1 tablet PO BID #14 tab 02/17/19 Carvedilol 6.25 mg PO BID 02/23/19 HYDROcodone 7.5MG/APAP 325MG [[place] 7.5/325] 1 tab PO PRN 02/23/19 Phentermine HCl 37.5 mg PO DAILY 02/23/19 Tramadol HCl 50 mg PO Q8HR PRN #20 tab 04/11/19 Acetaminophen W/ Codeine [Tylenol W/ CODEINE #3] 1 ea PO Q6HRS #16 07/15/19 Clindamycin HCl 300 mg PO TID #30 cap 07/15/19 Valacyclovir HCl 1,000 mg PO TID #30 tab 07/15/19 Review of Systems - Review of Systems Constitutional: States: no symptoms reported, see HPI EENTM: States: no symptoms reported Respiratory: States: no symptoms reported Cardiology: States: no symptoms reported Gastrointestinal/Abdominal: States: no symptoms reported Genitourinary: States: no symptoms reported Musculoskeletal: States: no symptoms reported Skin: States: see HPI, lesions, rash Neurological: States: no symptoms reported Endocrine: States: no symptoms reported Hematologic/Lymphatic: States: no symptoms reported All other Systems: Reviewed and Negative Past Medical History (General) - Patient Medical History Hx Seizures: No Hx Stroke: No Hx Dementia: No Hx Asthma: No Hx of COPD: Yes Hx Cardiac Disorders: Yes - fluid around heart, cyst to right heart Hx Congestive Heart Failure: No Hx Pacemaker: No Hx Hypertension: Yes Hx Thyroid Disease: No Hx Diabetes: No Hx Gastroesophageal Reflux: No Hx Renal Disease: No Hx Cancer: No Hx of HIV: No Hx Hepatitis C: No Hx MRSA: No Surgical History: appendectomy, other - Vaccination History Hx Tetanus, Diphtheria Vaccination: Yes Hx Influenza Vaccination: No Hx Pneumococcal Vaccination: No - Social History Hx Tobacco Use: Yes - Quit 2018 Hx Chewing Tobacco Use: No Hx Alcohol Use: No Hx Substance Use: No Hx Substance Use Treatment: No Hx Depression: No Hx Physical Abuse: No Hx Emotional Abuse: No Hx Suspected Abuse: No - Activities of Daily Living Alf/Assisted Living (if applicable):: [place] - Female History Patient is a Female of Child Bearing Age (10 -59 yrs old): Yes Hx Last Menstrual Period: 04/07/17 Patient : No Family Medical History - Family History Father Family History: Unknown Living Status: Hx Family Asthma: No Hx Family Congestive Heart Failure: Yes Hx Family Hypertension: Yes Hx Family Stroke: No Hx Cardiac Disease: Yes Hx Family Diabetes: Yes Hx Family Cancer: No Hx Family;Other: migraine headache both parents Physical Exam - Physical Exam General Appearance: Alert, Anxious, Well Hydrated, Well Nourished Eye Exam: bilateral normal Ears, Nose, Throat: hearing grossly normal, normal ENT inspection, normal pharynx Neck: non-tender, full range of motion, supple, normal inspection Respiratory: chest non-tender, lungs clear, normal breath sounds, no respiratory distress, no accessory muscle use Cardiovascular/Chest: normal peripheral pulses, regular rate, rhythm, no edema, no gallop, no murmur Peripheral Pulses: radial,right: 2+, radial,left: 2+ Gastrointestinal/Abdominal: normal bowel sounds, non tender, soft, no organomegaly, other - morbidly obese Back Exam: normal inspection, no CVA tenderness, no vertebral tenderness Extremity: normal range of motion, non-tender, normal inspection, no pedal edema Neurologic: nailing machine feeder II-XII nml as tested, no motor/sensory deficits, alert, normal mood/affect, oriented x 3 Skin Exam: warm/dry, other - patient with small papules that are either folliculitis or shingles. Skins exquisitely tender to palpation. She has an area of induration with hardening underneath the rash., rash Lymphatic: axilla node tender (R) Progress - Progress Progress: 07/15/19 15:07 differential diagnosis:, Folliculitis, cellulitis, abscess among others Patient's pain has improved after IM pain medication. Plan on treatment with valacyclovir and clindamycin. I discussed the plan of care with the patient and she voices understanding and agreement with the plan and care. Neo Liao M.D. #[id number] - Results/Orders Results/Orders: EXAM DESCRIPTION: Soft Tissue,Extremity: ULTRASOUND. CLINICAL HISTORY: 49 years Female R axillary induration, swelling, pain -r/o abscess COMPARISON: None Available. TECHNIQUE: Transcutaneous scanning: Peace-scale and Doppler modes. FINDINGS: Typical appearance of the soft tissues of the right axilla. Mass palpation corresponds to a circumscribed lymph node, hypoechoic periphery and central echogenicity measuring 1.7 cm long axis. No vascularity. No dominant solid mass or distinct cyst. No parenchymal edema or large calcifications. IMPRESSION: 1.7 cm nonreactive appearing lymph node in the right axilla. Electronically signed by: Chintan Maldonado MD 07/15/2019 2:20 PM Departure - Departure Clinical Impression: Lymphadenitis Shingles Qualifiers: Herpes zoster complications: unspecified herpes zoster complication Qualified Code(s): B02.8 - Zoster with other complications Cellulitis Qualifiers: Site of cellulitis: other site Qualified Code(s): L03.818 - Cellulitis of other sites Time of Disposition: 15:14 Disposition: Discharge to Home or Self Care Condition: Good Departure Forms: ED Discharge - Pt. Copy, ED Discharge - Work Release, Patient Portal Self Enrollment Instructions: Shingles (DC), Cellulitis (Skin Infection), Adult (DC) Referrals: Cristino Jimenez III, MD [Primary Care Provider] - 1-2 Weeks Prescriptions: Acetaminophen W/ Codeine [Tylenol W/ CODEINE #3] 1 ea PO Q6HRS #16 Clindamycin HCl 300 mg PO TID #30 cap Valacyclovir HCl 1,000 mg PO TID #30 tab Home Medications: Ambulatory Orders Lisinopril 40 mg PO BID 03/28/18 Clindamycin HCl 150 mg PO TID 7 Days #21 cap 02/17/19 Sulfa/Trimeth 800/160 (Ds) Tab [Bactrim DS] 1 tablet PO BID #14 tab 02/17/19 Carvedilol 6.25 mg PO BID 02/23/19 HYDROcodone 7.5MG/APAP 325MG [[place] 7.5/325] 1 tab PO PRN 02/23/19 Phentermine HCl 37.5 mg PO DAILY 02/23/19 Tramadol HCl 50 mg PO Q8HR PRN #20 tab 04/11/19 Acetaminophen W/ Codeine [Tylenol W/ CODEINE #3] 1 ea PO Q6HRS #16 07/15/19 Clindamycin HCl 300 mg PO TID #30 cap 07/15/19 Valacyclovir HCl 1,000 mg PO TID #30 tab 07/15/19
[2019-07-15] MEDS ORDERED: ONDANSETRON ODT 8 MG TAB SL ONE (14:19)
[2019-07-15] MEDS ORDERED: fentaNYL CITRATE INJ 50 MCG/ML AMP IM ONE (14:20)
--- NOTE | 2019-07-15 14:22 | US ---
EXAM DESCRIPTION: Soft Tissue,Extremity: ULTRASOUND. CLINICAL HISTORY: 49 years Female R axillary induration, swelling, pain -r/o abscess COMPARISON: None Available. TECHNIQUE: Transcutaneous scanning: Peace-scale and Doppler modes. FINDINGS: Typical appearance of the soft tissues of the right axilla. Mass palpation corresponds to a circumscribed lymph node, hypoechoic periphery and central echogenicity measuring 1.7 cm long axis. No vascularity. No dominant solid mass or distinct cyst. No parenchymal edema or large calcifications. IMPRESSION: 1.7 cm nonreactive appearing lymph node in the right axilla. Electronically signed by: Chintan Maldonado MD 07/15/2019 2:20 PM CDT
[2019-07-15 15:45] VITALS: BP 154/87; TEMP 98; O2SAT 96
== END 2019-07-15 15:29 | disposition home or self-care (01) ==
LOC: ER 13:02
DX: B02.9 Zoster without complications (principal); L03.111 Cellulitis of right axilla; I88.9 Nonspecific lymphadenitis, unspecified; I10 Essential (primary) hypertension; J44.9 Chronic obstructive pulmonary disease, unspecified; Z87.891 Personal history of nicotine dependence; Z79.899 Other long term (current) drug therapy; Z88.8 Allergy status to other drugs, medicaments and biological substances; Z88.1 Allergy status to other antibiotic agents; Z88.5 Allergy status to narcotic agent; Z88.0 Allergy status to penicillin
CPT/HCPCS: 76882; J3010

== ENCOUNTER → 2019-08-13 | Outpatient (CLI) | payer SELFPAY ==
--- NOTE | 2019-08-13 10:00 | RAD ---
EXAM DESCRIPTION: Shoulder,Right 2 or More Views CLINICAL HISTORY: 49 years Female, Shoulder pain COMPARISON: 05/07/2019 TECHNIQUE: 4 view radiograph of the right shoulder. IMPRESSION: No acute displaced fracture. No dislocation. Intact AC joint without diastases. No significant facet spurring. No abnormal widening of the coracoclavicular distance. No significant arthrosis of the glenohumeral joint. No radiographically apparent soft tissue abnormality. Electronically signed by: Pako Cannon MD 08/13/2019 9:58 AM [facility]
== END ==
LOC: RAD 08:52
PROVIDERS: ATTEND Orthopaedic Surgery
DX: M25.511 Pain in right shoulder (principal)

== ENCOUNTER 2019-09-26 21:39 | Emergency (ER) | payer SELFPAY ==
[2019-09-26 22:01] VITALS: TEMP 98
--- NOTE | 2019-09-26 22:02 | ED.PDOC ---
History of Present Illness - General Chief Complaint: Abdominal Pain Stated Complaint: abdominal pain Time Seen by Provider: 09/26/19 22:00 - History of Present Illness Initial Comments: 49-year-old female presents to the ER for several days of burning with urination, now right flank pain. No vomiting fever, but feels chills. took tyleno, motrin, states she is out of her norco. no recent UTI. Allergies/Adverse Reactions: Allergies Erythromycin Allergy (Verified 05/07/19 03:17) Hydromorphone [From Dilaudid] Allergy (Verified 05/07/19 03:17) Ketorolac Tromethamine [From Toradol] Allergy (Verified 05/07/19 03:17) Morphine Allergy (Verified 05/07/19 03:17) Penicillins Allergy (Verified 05/07/19 03:17) Sumatriptan [From Imitrex] Allergy (Verified 05/07/19 03:17) Home Medications: Ambulatory Orders Lisinopril 40 mg PO BID 03/28/18 Clindamycin HCl 150 mg PO TID 7 Days #21 cap 02/17/19 Sulfa/Trimeth 800/160 (Ds) Tab [Bactrim DS] 1 tablet PO BID #14 tab 02/17/19 Carvedilol 6.25 mg PO BID 02/23/19 HYDROcodone 7.5MG/APAP 325MG [[place] 7.5/325] 1 tab PO PRN 02/23/19 Phentermine HCl 37.5 mg PO DAILY 02/23/19 Tramadol HCl 50 mg PO Q8HR PRN #20 tab 04/11/19 Acetaminophen W/ Codeine [Tylenol W/ CODEINE #3] 1 ea PO Q6HRS #16 07/15/19 Clindamycin HCl 300 mg PO TID #30 cap 07/15/19 Valacyclovir HCl 1,000 mg PO TID #30 tab 07/15/19 Methocarbamol [Robaxin] 500 mg PO Q6H PRN #15 tab 09/27/19 Tramadol HCl [Ultram] 50 mg PO Q6H PRN #10 tab 09/27/19 Review of Systems - Review of Systems Review of Systems: 09/26/19 22:54 General: Denies generalized weakness, fever, arthralgia/myalgia HEENT: Denies sore throat, rhinorrhea Cardiovascular: Denies chest pain, palpitations Respiratory: Denies SOB, cough Gastrointestinal: has abdominal pain, no vomiting, diarrhea : has dysuria, frequency Musculoskeletal: Denies extremity pain, extremity swelling Integument: Denies rash, itching Neuro: Denies focal weakness or numbness Psych: Denies depression, hallucinations. Past Medical History (General) - Patient Medical History Hx Seizures: No Hx Stroke: No Hx Dementia: No Hx Asthma: No Hx of COPD: Yes Hx Cardiac Disorders: Yes - "extra beats" per patient Hx Congestive Heart Failure: No Hx Pacemaker: No Hx Hypertension: Yes Hx Thyroid Disease: No Hx Diabetes: No Hx Gastroesophageal Reflux: No Hx Renal Disease: No Hx Cancer: No Hx of HIV: No Hx Hepatitis C: No Hx MRSA: No Surgical History: appendectomy - Vaccination History Hx Tetanus, Diphtheria Vaccination: Yes Hx Influenza Vaccination: No Hx Pneumococcal Vaccination: No - Social History Hx Tobacco Use: Yes - Quit 2018 Hx Chewing Tobacco Use: No Hx Alcohol Use: No Hx Substance Use: No Hx Substance Use Treatment: No Hx Depression: No Hx Physical Abuse: No Hx Emotional Abuse: No Hx Suspected Abuse: No - Activities of Daily Living Hospice Agency (if applicable):: None - Female History Hx Last Menstrual Period: 04/07/17 Patient : No - Triage Comment ED Triage Comment: pt voices thinking she has a kidney infection with pain to front of abdomen that radiates around to lower back. Family Medical History - Family History Father Family History: Unknown Living Status: Hx Family Asthma: No Hx Family Congestive Heart Failure: Yes Hx Family Hypertension: Yes Hx Family Stroke: No Hx Cardiac Disease: Yes Hx Family Diabetes: Yes Hx Family Cancer: No Hx Family;Other: migraine headache both parents Physical Exam - Physical Exam Comments: General Appearance: Patient is awake and alert. obese. Skin: Warm and dry. No diaphoresis. No rash or other lesions. Head: Normocephalic/atraumatic. Eyes: PERRL, lids, conjunctiva and sclera unremarkable. EOMI intact. ENT: No nasal discharge. Oropharynx. Without erythema, exudate, lesions. Moist mucous membranes. Neck: Supple. No LAD. No tenderness. No JVD noted. Respiratory: Normal rate and effort. Breath sounds clear bilaterally. Cardiovascular: Regular rate. Heart sounds normal. No murmur. GI: Abdomen soft, non-distended and non-tender. no RLQ tenderness. No rebound/guarding. Bowel sounds normal. Back: No tenderness Musculoskeletal: Extremities- Normal range of motion. No effusion, cyanosis, edema. Neurological: Alert. No facial palsy. Speech clear. Gag intact. No motor deficit, str symmetric. No sensory deficit. Progress - Progress Progress: 09/27/19 00:12 Patient feels better. VS, exam remain reassuring. Labs, imaging are without acute abnormality. I have discussed findings, diff dx, plan of care, need for follow-up, and reasons to return to the ED. Safety Stop (Diagnostic Time-Out): Tachycardia: No Diagnostic Studies: Reviewed Diagnostic Certainty: low, d/w patient Patient/family feels safe with discharge: Yes - Results/Orders Results/Orders: Vital Signs - 24 hr 09/26/19 09/26/19 09/26/19 21:55 22:05 22:40 Temperature 98.0 F 98.0 F Pulse Rate [ 102 H 102 H 93 H brachial] Respiratory 20 20 20 Rate Blood Pressure 164/99 165/101 [Left Arm] O2 Sat by Pulse 98 97 Oximetry 09/26/19 09/27/19 23:00 00:00 Temperature 98.0 F 98.0 F Pulse Rate [ 89 71 brachial] Respiratory 18 18 Rate Blood Pressure 145/102 158/95 [Left Arm] O2 Sat by Pulse 98 96 Oximetry 09/26/19 22:10 Urine Culture Stat Laboratory Results Urine Color Yellow (Yellow) 09/26/19 22:10 Urine Appearance Clear (Clear) 09/26/19 22:10 Urine pH 6.0 (4.5-7.8) 09/26/19 22:10 Ur Specific [place] 1.025 (1.005-1.030) 09/26/19 22:10 Urine Protein Negative mg/dL 09/26/19 22:10 Urine Glucose (UA) Negative mg/dL (Negative) 09/26/19 22:10 Urine Ketones Negative mg/dL (NEGATIVE) 09/26/19 22:10 Urine Blood Negative (Negative) 09/26/19 22:10 Urine Nitrite Negative 09/26/19 22:10 Urine Bilirubin Negative (NEGATIVE) 09/26/19 22:10 Urine Urobilinogen 0.2 mg/dL (0.2-1.0) 09/26/19 22:10 Ur Leukocyte Esterase Negative (Negative) 09/26/19 22:10 Urine RBC 0 /hpf 09/26/19 22:10 Urine WBC 3-5 /hpf H 09/26/19 22:10 Ur Epithelial Cells 10-20 /hpf 09/26/19 22:10 Urine Bacteria 1+ 09/26/19 22:10 CT abd/pelvis w/ no acute abnormality Departure - Departure Clinical Impression: Right flank pain Time of Disposition: 00:15 Disposition: Discharge to Home or Self Care Condition: Good Departure Forms: ED Discharge - Pt. Copy, Patient Portal Self Enrollment Instructions: DI for Abdominal Pain-Adult Diet: resume usual diet Referrals: Cristino Jimenez III, MD [Primary Care Provider] - 1-2 Days Prescriptions: Methocarbamol [Robaxin] 500 mg PO Q6H PRN #15 tab PRN Reason: Muscle Spasms Tramadol HCl [Ultram] 50 mg PO Q6H PRN #10 tab PRN Reason: Pain Home Medications: Ambulatory Orders Lisinopril 40 mg PO BID 03/28/18 Clindamycin HCl 150 mg PO TID 7 Days #21 cap 02/17/19 Sulfa/Trimeth 800/160 (Ds) Tab [Bactrim DS] 1 tablet PO BID #14 tab 02/17/19 Carvedilol 6.25 mg PO BID 02/23/19 HYDROcodone 7.5MG/APAP 325MG [[place] 7.5/325] 1 tab PO PRN 02/23/19 Phentermine HCl 37.5 mg PO DAILY 02/23/19 Tramadol HCl 50 mg PO Q8HR PRN #20 tab 04/11/19 Acetaminophen W/ Codeine [Tylenol W/ CODEINE #3] 1 ea PO Q6HRS #16 07/15/19 Clindamycin HCl 300 mg PO TID #30 cap 07/15/19 Valacyclovir HCl 1,000 mg PO TID #30 tab 07/15/19 Methocarbamol [Robaxin] 500 mg PO Q6H PRN #15 tab 09/27/19 Tramadol HCl [Ultram] 50 mg PO Q6H PRN #10 tab 09/27/19 Comments: Dean Baugh MD Emergency Medicine #[id number]
[2019-09-26] MEDS ORDERED: HYDROcodone 5MG/APAP 325MG 1 EA TAB PO ONE (22:24)
[2019-09-26] MEDS ORDERED: ONDANSETRON ODT 8 MG TAB SL ONE (22:24)
--- NOTE | 2019-09-27 00:05 | CT ---
PROCEDURE: CT Abdomen and Pelvis Without Intravenous Contrast CLINICAL INDICATION: The patient is 49 years old and is Female; R flank pain, concern for renal stone TECHNIQUE: Axial computed tomography images of the abdomen and pelvis without intravenous contrast. Sagittal and coronal reformatted images were created and reviewed. This CT exam was performed using one or more of the following dose reduction techniques: automated exposure control, adjustment of the mA and/or kV according to patient size, and/or use of iterative reconstruction technique. DLP: 1281 mGy*cm COMPARISON: CT abdomen and pelvis without contrast dated October 04, 2018. FINDINGS: LUNG BASES: Lung bases are clear. HEART: Visualized heart is normal. ABDOMEN: LIVER: Unremarkable. GALLBLADDER AND BILE DUCTS: Unremarkable. No calcified stones. No ductal dilation. PANCREAS: Unremarkable. No ductal dilation. SPLEEN: Punctate splenic granuloma. ADRENALS: Unremarkable. No mass. KIDNEYS AND URETERS: No radiopaque stone, hydronephrosis or hydroureter. STOMACH AND BOWEL: Unremarkable. No obstruction. No mucosal thickening. PELVIS: APPENDIX: No findings to suggest acute appendicitis. BLADDER: Bladder is decompressed. No stones. REPRODUCTIVE: Suggestion of bilateral ovarian cyst measuring up to 2.1 cm on the left. ABDOMEN and PELVIS: INTRAPERITONEAL SPACE: Unremarkable. No free air. No significant fluid collection. BONES/JOINTS: No acute fracture. No dislocation. Lumbar facet arthropathy. SOFT TISSUES: Prior umbilical hernia repair. VASCULATURE: Trace atherosclerotic vascular calcifications. No abdominal aortic aneurysm. LYMPH NODES: Unremarkable. No enlarged lymph nodes. IMPRESSION: 1. No acute abdominal or pelvic abnormality. No obstructive uropathy. 2. Unchanged prior umbilical hernia repair. 3. Bilateral ovarian cysts as detailed above. No follow-up imaging is recommended. Reference: US recommendations based on Radiology 2010 May;256(3):943-54; CT/MR recommendations based on J Am Munira Radiol 2013;10:675-681. Electronically signed by: Carlos Eduardo Ramírez DO 09/27/2019 12:03 AM [facility]
[2019-09-27 00:10] VITALS: O2SAT 96
[2019-09-27 00:39] VITALS: BP 152/96
== END 2019-09-27 00:41 | disposition home or self-care (01) ==
LOC: ER 21:39
DX: R10.9 Unspecified abdominal pain (principal); R30.0 Dysuria; R35.0 Frequency of micturition; J44.9 Chronic obstructive pulmonary disease, unspecified; I10 Essential (primary) hypertension; Z87.891 Personal history of nicotine dependence; Z90.49 Acquired absence of other specified parts of digestive tract; Z79.899 Other long term (current) drug therapy; Z88.1 Allergy status to other antibiotic agents; Z88.5 Allergy status to narcotic agent; Z88.0 Allergy status to penicillin

== ENCOUNTER 2019-10-11 17:58 | Emergency (ER) | payer BC ==
[2019-10-11 18:09] VITALS: TEMP 98.6
[2019-10-11] MEDS ORDERED: SODIUM CHLORIDE 0.9% 1000ML 1,000 ML IVS ONE (18:17)
[2019-10-11] MEDS ORDERED: ACETAMINOPHEN IV 1000MG 1,000 MG in PREMIX BOTTLE 1 BOTTLE IVPB ONE (18:17)
[2019-10-11] MEDS ORDERED: ONDANSETRON INJ 4 MG/2 ML VIAL IV ONE (18:17)
[2019-10-11] MEDS ORDERED: IPRATROPIUM/ALBUTEROL 3 ML VIAL NEB ONE (18:17)
--- NOTE | 2019-10-11 18:20 | ED.PDOC ---
History of Present Illness - General Chief Complaint: General Stated Complaint: Cough, fever, bodyaches Time Seen by Provider: 10/11/19 18:12 Source: patient Exam Limitations: no limitations - History of Present Illness Initial Comments: 49-year-old female presents to the emergency department complaining of cough, congestion, fevers, vomiting, diarrhea and body aches with sore throat onset 4 days ago. She reports multiple ill contacts at home recently with some people with strep, somewhat flu and others with pneumonia. Without significant improvement in her symptoms. She has had decreased oral intake due to vomiting. Symptoms are currently moderate in severity and nothing she does seems to make them significantly better or worse. Allergies/Adverse Reactions: Allergies Erythromycin Allergy (Verified 05/07/19 03:17) Hydromorphone [From Dilaudid] Allergy (Verified 05/07/19 03:17) Ketorolac Tromethamine [From Toradol] Allergy (Verified 05/07/19 03:17) Morphine Allergy (Verified 05/07/19 03:17) Penicillins Allergy (Verified 05/07/19 03:17) Sumatriptan [From Imitrex] Allergy (Verified 05/07/19 03:17) Home Medications: Ambulatory Orders Lisinopril 40 mg PO BID 03/28/18 Carvedilol 6.25 mg PO BID 02/23/19 HYDROcodone 7.5MG/APAP 325MG [[place] 7.5/325] 1 tab PO PRN 02/23/19 Albuterol Inhaler [Ventolin Hfa Inhaler] 1 - 2 puff INH Q4H PRN #1 inh 10/11/19 Ondansetron HCl [Zofran] 4 mg PO Q8H PRN #10 tab 10/11/19 Prednisone 50 mg PO DAILY #5 tab 10/11/19 Review of Systems - Review of Systems Constitutional: States: chills, fever EENTM: States: nose congestion, throat pain Respiratory: States: cough. Denies: wheezing Cardiology: Denies: chest pain, palpitations Gastrointestinal/Abdominal: States: diarrhea, nausea, vomiting Genitourinary: Denies: dysuria, hematuria Musculoskeletal: States: joint pain, muscle pain Skin: Denies: lesions, rash Neurological: States: headache. Denies: numbness, paresthesia, weakness Past Medical History (General) - Patient Medical History Hx Seizures: No Hx Stroke: No Hx Dementia: No Hx Asthma: No Hx of COPD: Yes Hx Cardiac Disorders: Yes - "extra beats" per patient Hx Congestive Heart Failure: No Hx Pacemaker: No Hx Hypertension: Yes Hx Thyroid Disease: No Hx Diabetes: No Hx Gastroesophageal Reflux: No Hx Renal Disease: No Hx Cancer: No Hx of HIV: No Hx Hepatitis C: No Hx MRSA: No - Vaccination History Hx Tetanus, Diphtheria Vaccination: Yes Hx Influenza Vaccination: No Hx Pneumococcal Vaccination: No - Social History Hx Tobacco Use: Yes - Quit 06/2019 Hx Chewing Tobacco Use: No Hx Alcohol Use: No Hx Substance Use: No Hx Substance Use Treatment: No Hx Depression: No Hx Physical Abuse: No Hx Emotional Abuse: No Hx Suspected Abuse: No - Female History Patient is a Female of Child Bearing Age (10 -59 yrs old): Yes Hx Last Menstrual Period: 04/07/17 Patient : No Family Medical History - Family History Father Family History: Unknown Living Status: Hx Family Asthma: No Hx Family Congestive Heart Failure: Yes Hx Family Hypertension: Yes Hx Family Stroke: No Hx Cardiac Disease: Yes Hx Family Diabetes: Yes Hx Family Cancer: No Hx Family;Other: migraine headache both parents Physical Exam - Physical Exam General Appearance: Alert, Well Developed, Well Nourished, Other - frequent coughing episodes Eye Exam: bilateral normal Ears, Nose, Throat: other - TMs normal bilat. Mild erythema to posterior pharynx with post nasal drip. Neck: supple, normal inspection Respiratory: normal breath sounds, no respiratory distress, no accessory muscle use, other - coarse BS Cardiovascular/Chest: normal peripheral pulses, tachycardia Peripheral Pulses: radial,right: 2+, radial,left: 2+ Gastrointestinal/Abdominal: non tender, soft, abnormal bowel sounds - hyperactive Back Exam: normal inspection Extremity: normal range of motion, normal inspection Neurologic: alert, normal mood/affect, oriented x 3, other - Moves all extremities without focal deficits Skin Exam: normal color, warm/dry Comments: Vital Signs - 24 hr 10/11/19 18:05 Temperature 98.6 F Pulse Rate [ 111 H Left Radial] Respiratory 26 H Rate Blood Pressure 182/97 [Left Arm] O2 Sat by Pulse 97 Oximetry Progress - Progress Progress: 10/11/19 19:21 Patient recheck: All lab and imaging results discussed with the patient along plan for discharge home. Her laboratory findings are significant for mild leukocytosis, chest x-ray was negative and influenza was also negative. At this time I suspect her symptoms are most likely secondary to an influenza like illness, upper respiratory infection and bronchitis. She'll be discharged home with a prescription for albuterol and prednisone. She is encouraged to drink frequent fluids and to follow-up with her primary care physician. She is enco uraged to return to the emergency department for any worsening of symptoms or other concerns. The patient has voiced understanding and agrees with the treatment plan and all questions and concerns were addressed. - Results/Orders Results/Orders: 10/11/19 18:16 IV Care:Saline Lock per Protoc QSHIFT Telemetry ONCE Laboratory Results - last 24 hr 10/11/19 10/11/19 10/11/19 18:55 18:55 18:55 WBC 14.1 H RBC 4.76 Hgb 14.5 Hct 44.0 MCV 92.4 MCH 30.5 MCHC 33.0 RDW 14.6 H Plt Count 308 MPV 8.6 Absolute Neuts (auto) 8.30 H Absolute Lymphs (auto) 4.50 H Absolute Monos (auto) 0.90 H Absolute Eos (auto) 0.30 Absolute Basos (auto) 0.10 Neutrophils % 58.8 Lymphocytes % 31.6 Monocytes % 6.2 Eosinophils % 2.4 Basophils % 1.0 Sodium 137 Potassium 3.7 Chloride 100 L Carbon Dioxide 28 Anion Gap 12.7 BUN 8 Creatinine 0.76 BUN/Creatinine Ratio 10.5 Random Glucose 83 Serum Osmolality 271.3 L Calcium 9.3 Total Bilirubin 0.4 AST 27 ALT 34 Alkaline Phosphatase 88 Serum Total Protein 7.7 Albumin 3.7 Globulin 4.0 H Albumin/Globulin Ratio 0.9 L Serum HCG, Qual Negative 2 View CXR: IMPRESSION: No abnormality noted. Electronically signed by: Renetta Lewis MD 10/11/2019 7:10 PM [employer] Influenza A and B: negative Departure - Departure Clinical Impression: Influenza-like illness, Bronchitis URI (upper respiratory infection) Qualifiers: URI type: unspecified URI Qualified Code(s): J06.9 - Acute upper respiratory infection, unspecified Time of Disposition: 19:23 Disposition: Discharge to Home or Self Care Condition: Good Departure Forms: ED Discharge - Pt. Copy, Patient Portal Self Enrollment Instructions: Flu, Acute Bronchitis, Nausea and Vomiting, Adult Referrals: Cristino Jimenez III, MD [Primary Care Provider] - 1-5 Days Prescriptions: Albuterol Inhaler [Ventolin Hfa Inhaler] 1 - 2 puff INH Q4H PRN #1 inh PRN Reason: sob Ondansetron HCl [Zofran] 4 mg PO Q8H PRN #10 tab PRN Reason: Nausea Prednisone 50 mg PO DAILY #5 tab Home Medications: Ambulatory Orders Lisinopril 40 mg PO BID 03/28/18 Carvedilol 6.25 mg PO BID 02/23/19 HYDROcodone 7.5MG/APAP 325MG [[place] 7.5/325] 1 tab PO PRN 02/23/19 Albuterol Inhaler [Ventolin Hfa Inhaler] 1 - 2 puff INH Q4H PRN #1 inh 10/11/19 Ondansetron HCl [Zofran] 4 mg PO Q8H PRN #10 tab 10/11/19 Prednisone 50 mg PO DAILY #5 tab 10/11/19 Additional Instructions: Take medications as directed. Push small frequent oral fluids. Follow-up with your primary care physician tomorrow as previously scheduled. Return to the emergency department for any worsening of symptoms or other concerns.
[2019-10-11] MEDS ORDERED: methylPREDNISolone SODIUM SUC 125 MG/2 ML VIAL IV ONE (18:21)
--- NOTE | 2019-10-11 19:12 | RAD ---
EXAM: XR Chest, 2 Views CLINICAL HISTORY: cough TECHNIQUE: Frontal and lateral views of the chest. COMPARISON: 12/30/2018. FINDINGS: Lungs: Unremarkable. No consolidation. Pleural space: Unremarkable. No pneumothorax. Heart: Unremarkable. No cardiomegaly. Mediastinum: Unremarkable. Bones/joints: Unremarkable. IMPRESSION: No abnormality noted. Electronically signed by: Renetta Lewis MD 10/11/2019 7:10 PM [facility]
[2019-10-11] MEDS ORDERED: ACETAMINOPHEN IV 1000MG 100 ML ONE (19:16)
[2019-10-11 20:26] VITALS: BP 135/75; O2SAT 100
== END 2019-10-11 20:27 | disposition home or self-care (01) ==
LOC: ER 17:58
DX: J06.9 Acute upper respiratory infection, unspecified (principal); J11.1 Influenza due to unidentified influenza virus with other respiratory manifestations; J44.9 Chronic obstructive pulmonary disease, unspecified; R19.7 Diarrhea, unspecified; R11.2 Nausea with vomiting, unspecified; I10 Essential (primary) hypertension; Z87.891 Personal history of nicotine dependence; Z79.899 Other long term (current) drug therapy; Z88.1 Allergy status to other antibiotic agents; Z88.5 Allergy status to narcotic agent; Z88.0 Allergy status to penicillin; Z88.8 Allergy status to other drugs, medicaments and biological substances
CPT/HCPCS: 71046; 80053; 84703; 85025; 87502; 94640; J2405; J2930; J7030; J7620

== ENCOUNTER → 2019-10-14 | Outpatient (CLI) | payer BC ==
--- NOTE | 2019-10-14 15:38 | RAD ---
EXAM DESCRIPTION: Neck,Soft Tissue CLINICAL HISTORY: PAIN IN THROAT. R07.0 COMPARISON: None. IMPRESSION: 2 views of the neck obtained using soft tissue technique show no abnormal increase in the prevertebral soft tissue. The epiglottis is normal. No soft tissue emphysema. No tonsillar enlargement. Moderate left greater than right facet hypertrophic and degenerative changes from C2 through C7. No abnormal calcifications are seen in the soft tissues. No radiopaque foreign body is seen in the soft tissues. Electronically signed by: Justin Florez MD 10/14/2019 3:36 PM [facility] [place]
== END ==
LOC: LAB.O 14:46
PROVIDERS: ATTEND Nurse Practitioner Family
DX: R07.0 Pain in throat (principal); D72.829 Elevated white blood cell count, unspecified; M47.892 Other spondylosis, cervical region

== ENCOUNTER 2019-12-09 | Day surgery (SDC) | payer BC | END 2019-12-09 14:30 | disposition home or self-care (01) | DX: K43.0 Incisional hernia with obstruction, without gangrene (principal); I10 Essential (primary) hypertension; J44.9 Chronic obstructive pulmonary disease, unspecified; E66.9 Obesity, unspecified; G89.29 Other chronic pain; Z68.43 Body mass index [BMI] 50.0-59.9, adult; Z88.0 Allergy status to penicillin; Z88.5 Allergy status to narcotic agent; Z88.8 Allergy status to other drugs, medicaments and biological substances; Z79.899 Other long term (current) drug therapy | CPT/HCPCS: 00840; 36415; 49657; 71045; 80048; 81025; 85025; 93005; 94640; J1100; J2250; J2405; J2765; J2780; J3010; J3490; J7120; J7614 ==

== ENCOUNTER 2020-02-25 13:46 | Emergency (ER) | payer BC ==
--- NOTE | 2020-02-25 14:13 | ED.PDOC ---
History of Present Illness - General Chief Complaint: Lower Extremity Injury Stated Complaint: Ankle pain Time Seen by Provider: 02/25/20 14:09 Source: patient, RN notes reviewed, Vital Signs reviewed - History of Present Illness Initial Comments: This is a 50-year-old female presenting to the emergency department for left ankle pain onset yesterday when she reportedly stepped in a hole. She states sh e is able to walk but states it is markedly painful. No other injuries. No head injury/back injury/neck injury. She is taken ibuprofen without improvement. Occurred: yesterday Pain - Lower Extremity: severe: Left Ankle Method of Injury: twisted Improving Factors: immobilization, rest Worsening Factors: movement Allergies/Adverse Reactions: Allergies Erythromycin Allergy (Verified 12/08/19 14:00) Hydromorphone [From Dilaudid] Allergy (Verified 12/08/19 14:00) Ketorolac Tromethamine [From Toradol] Allergy (Verified 12/08/19 14:00) Morphine Allergy (Verified 12/08/19 14:00) Penicillins Allergy (Verified 12/08/19 14:00) Sumatriptan [From Imitrex] Allergy (Verified 12/08/19 14:00) Home Medications: Ambulatory Orders RX: Lisinopril 40 mg PO BID 03/28/18 HYDROcodone 7.5MG/APAP 325MG [[place] 7.5/325] 1 tab PO PRN 02/23/19 RX: Carvedilol 6.25 mg PO BID 02/23/19 Budes/Formoterol INH 160/4.5 [Symbicort Inhaler 160/4.5] 1 mcg INH PRN 12/08/19 Ibuprofen [Motrin] 600 mg PO Q6H PRN #20 tab 02/25/20 RX: Tramadol HCl 50 - 100 mg PO Q6H PRN #12 tab 02/25/20 Review of Systems - Review of Systems Gastrointestinal/Abdominal: Denies: abdominal pain, nausea, vomiting Musculoskeletal: States: joint pain. Denies: back pain, muscle pain, muscle stiffness, neck pain Past Medical History (General) - Patient Medical History Hx Seizures: No Hx Stroke: No Hx Dementia: No Hx Asthma: No Hx of COPD: Yes Hx Cardiac Disorders: Yes - "extra beats" per patient Hx Congestive Heart Failure: No Hx Pacemaker: No Hx Hypertension: Yes Hx Thyroid Disease: No Hx Diabetes: No Hx Gastroesophageal Reflux: No Hx Renal Disease: No Hx Cancer: No Hx of HIV: No Hx Hepatitis C: No Hx MRSA: No - Vaccination History Hx Tetanus, Diphtheria Vaccination: Yes Hx Influenza Vaccination: No Hx Pneumococcal Vaccination: No - Social History Hx Tobacco Use: Yes - Quit 06/2019 Hx Chewing Tobacco Use: No Hx Alcohol Use: No Hx Substance Use: No Hx Substance Use Treatment: No Hx Depression: No Hx Physical Abuse: No Hx Emotional Abuse: No Hx Suspected Abuse: No - Female History Hx Last Menstrual Period: 04/07/17 Patient : No Family Medical History - Family History Father Family History: Unknown Living Status: Hx Family Asthma: No Hx Family Congestive Heart Failure: Yes Hx Family Hypertension: Yes Hx Family Stroke: No Hx Cardiac Disease: Yes Hx Family Diabetes: Yes Hx Family Cancer: No Hx Family;Other: migraine headache both parents Physical Exam - Physical Exam General Appearance: Alert, Comfortable, Obese Neck: non-tender, full range of motion, supple Back: normal inspection, no CVA tenderness, no vertebral tenderness Thigh/Hip: normal inspection, non-tender, no evidence of injury Leg: normal inspection, non-tender, no evidence of injury, normal ROM Knee: normal inspection, non-tender, no evidence of injury Ankle: limited ROM, pain, soft tissue tenderness - Posterior aspect of left lateral malleolus, no medial malleolar tenderness, no ecchymosis, no deformities, no calcaneal tenderness, no fifth metatarsal tenderness, no proximal fibular tenderness Foot: normal inspection, non-tender, no evidence of injury Neuro/Tendon: normal motor functions, normal tendon functions 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, depressed affect Skin: normal color, warm/dry Progress - Progress Progress: 02/25/20 15:22Rechecked. Discussed x-ray findings and plan for discharge. Patient's leg was too large for 3D boot, no Aircast stirrup splints are available at this time. Will place in Lobo wrap and discharged home with crutches. Recommended follow-up with PCP in 3 to 5 days for recheck. I recommended early ambulation and immobilization. DDX: Fracture, sprain, dislocation Jose R Arellano DO [facility] #[id number] - Results/Orders Results/Orders: Ankle x-ray reviewed by me personally at 2:32 PM. No fracture, no dislocation. Mortise appears to be intact. EXAM DESCRIPTION: Ankle,Left 3 Views CLINICAL HISTORY: 50 years Female, ankle injury, pain COMPARISON: April 11, 2019 FINDINGS: Three views of the left ankle show no acute fracture or malalignment. The tibiotalar joint space and talar dome are well-maintained. Calcaneal enthesophyte formation at the plantar fascia and Achilles tendon insertions. Calcification adjacent to the fifth metatarsal base is unchanged from March, and not acute. IMPRESSION: Calcaneal spurring, no acute left ankle abnormality. Electronically signed by: Stefan Mendosa MD 02/25/2020 2:44 PM CDT Departure - Departure Clinical Impression: Sprain of left ankle or foot Disposition: Discharge to Home or Self Care Condition: Good Departure Forms: ED Discharge - Pt. Copy, Patient Portal Self Enrollment, Work Release Form Instructions: Ankle Sprain (DC) Referrals: Issac Conde MD [Primary Care Provider] - 1-5 Days Prescriptions: Ibuprofen [Motrin] 600 mg PO Q6H PRN #20 tab PRN Reason: Pain RX: Tramadol HCl 50 - 100 mg PO Q6H PRN #12 tab PRN Reason: Pain Home Medications: Ambulatory Orders RX: Lisinopril 40 mg PO BID 03/28/18 HYDROcodone 7.5MG/APAP 325MG [[place] 7.5/325] 1 tab PO PRN 02/23/19 RX: Carvedilol 6.25 mg PO BID 02/23/19 Budes/Formoterol INH 160/4.5 [Symbicort Inhaler 160/4.5] 1 mcg INH PRN 12/08/19 Ibuprofen [Motrin] 600 mg PO Q6H PRN #20 tab 02/25/20 RX: Tramadol HCl 50 - 100 mg PO Q6H PRN #12 tab 02/25/20
[2020-02-25 14:19] VITALS: O2SAT 97
--- NOTE | 2020-02-25 14:46 | RAD ---
EXAM DESCRIPTION: Ankle,Left 3 Views CLINICAL HISTORY: 50 years Female, ankle injury, pain COMPARISON: April 11, 2019 FINDINGS: Three views of the left ankle show no acute fracture or malalignment. The tibiotalar joint space and talar dome are well-maintained. Calcaneal enthesophyte formation at the plantar fascia and Achilles tendon insertions. Calcification adjacent to the fifth metatarsal base is unchanged from March, and not acute. IMPRESSION: Calcaneal spurring, no acute left ankle abnormality. Electronically signed by: Stefan Mendosa MD 02/25/2020 2:44 PM CDT
[2020-02-25 15:13] VITALS: BP 156/92; TEMP 97.2
== END 2020-02-25 15:13 | disposition home or self-care (01) ==
LOC: ER 13:46
DX: S93.402A Sprain of unspecified ligament of left ankle, initial encounter (principal); I10 Essential (primary) hypertension; J44.9 Chronic obstructive pulmonary disease, unspecified; Z87.891 Personal history of nicotine dependence; W17.2XXA Fall into hole, initial encounter; Y92.9 Unspecified place or not applicable

== ENCOUNTER 2020-04-09 14:56 | Observation (INO) | payer BC ==
[2020-04-09] MEDS ORDERED: ONDANSETRON INJ 4 MG/2 ML VIAL IV ONE (15:04)
[2020-04-09] MEDS ORDERED: fentaNYL CITRATE INJ 50 MCG/ML AMP IV ONE ×2 (15:06→18:52)
--- NOTE | 2020-04-09 15:08 | ED.PDOC ---
History of Present Illness - General Chief Complaint: Abdominal Pain Stated Complaint: Epigastric abdominal pain Time Seen by Provider: 04/09/20 15:02 Information Source: patient Exam Limitations: no limitations - History of Present Illness Initial Comments: Pt reports epigastric abd pain since 3am today. Nonradiating. No N/V/D. Nl urination, nl bowels. Only lying flat worsens it, and sitting up improves it. Pt still has GB. Pt can take Fentanyl, but no other narcotics that she can recall. Pt denies h/o GERD/PUD. Pt has had hernia repair in past. Abdominal Pain Onset Location: epigastric Pain Radiation: no radiation Quality: moderate, severe, aching, burning Timing/Duration: gone now - Since 3a Improving Factors: nothing Worsening Factors: nothing Associated Symptoms: denies symptoms Review of Systems - Review of Systems Constitutional: States: weakness. Denies: chills, fever EENTM: States: no symptoms reported Respiratory: States: cough - but no different than usual chronic cough Cardiology: Denies: chest pain, edema, palpitations, syncope Gastrointestinal/Abdominal: States: abdominal pain. Denies: diarrhea, nausea, vomiting, other Musculoskeletal: States: no symptoms reported. Denies: back pain Skin: States: no symptoms reported Neurological: States: no symptoms reported Hematologic/Lymphatic: States: no symptoms reported Past Medical History (General) - Patient Medical History Hx Seizures: No Hx Stroke: No Hx Dementia: No Hx Asthma: No Hx of COPD: Yes Hx Cardiac Disorders: Yes - "extra beats" per patient Hx Congestive Heart Failure: No Hx Pacemaker: No Hx Hypertension: Yes Hx Thyroid Disease: No Hx Diabetes: No Hx Gastroesophageal Reflux: No Hx Renal Disease: No Hx Cancer: No Hx of HIV: No Hx Hepatitis C: No Hx MRSA: No - Vaccination History Hx Tetanus, Diphtheria Vaccination: Yes Hx Influenza Vaccination: No Hx Pneumococcal Vaccination: No - Social History Hx Tobacco Use: Yes - Quit 06/2019 Hx Chewing Tobacco Use: No Hx Alcohol Use: No Hx Substance Use: No Hx Substance Use Treatment: No Hx Depression: No Hx Physical Abuse: No Hx Emotional Abuse: No Hx Suspected Abuse: No - Female History Hx Last Menstrual Period: 04/07/17 Patient : No Family Medical History - Family History Father Family History: Unknown Living Status: Hx Family Asthma: No Hx Family Congestive Heart Failure: Yes Hx Family Hypertension: Yes Hx Family Stroke: No Hx Cardiac Disease: Yes Hx Family Diabetes: Yes Hx Family Cancer: No Hx Family;Other: migraine headache both parents Physical Exam - Physical Exam General Appearance: Alert, Obvious distress - mild, Obese Eyes, Ears, Nose, Throat Exam: PERRL/EOMI, normal ENT inspection, TMs normal, pharynx normal Neck: non-tender, full range of motion Respiratory: chest non-tender, lungs clear, normal breath sounds, no respiratory distress, no accessory muscle use Cardiovascular/Chest: normal peripheral pulses, regular rate, rhythm, no edema, no gallop Gastrointestinal/Abdominal: normal bowel sounds, soft, no organomegaly, no pulsatile mass, tenderness - Epigastric. No guarding or rebound. Back Exam: normal inspection, no CVA tenderness Neurologic: alert, normal mood/affect, oriented x 3 Skin Exam: normal color Progress - Progress Progress: 04/09/20 15:10 NSR 89 bpm. Suboptimal study. No ST elevations. NSST changes. Nl intervals. Nl axis. ?ant Q waves. 04/09/20 15:32 Pt in no resp distress on RA. O2 sat 96% on RA, RR 18. 04/09/20 15:53 Hold Metformin x 48Hrs [id number] Laboratory Results WBC 11.2 K/mm3 (4.8-10.8) H 04/09/20 15:26 RBC 4.01 M/mm3 (4.20-5.40) L 04/09/20 15:26 Hgb 12.3 gm/dL (12.0-16.0) 04/09/20 15:26 Hct 36.5 % (36.0-47.0) 04/09/20 15:26 MCV 91.0 fl (81.0-99.0) 04/09/20 15:26 MCH 30.7 pg (27.0-31.0) 04/09/20 15: MCHC 33.7 g/dL (33.0-37.0) 04/09/20 15:26 RDW 15.1 % (11.5-14.5) H 04/09/20 15:26 Plt Count 256 K/mm3 (130-400) 04/09/20 15:26 MPV 9.3 fl (7.40-10.4) 04/09/20 15:26 Absolute Neuts (auto) 6.20 K/uL (1.8-6.8) 04/09/20 15:26 Absolute Lymphs (auto) 4.10 K/uL (1.0-3.4) H 04/09/20 15:26 Absolute Monos (auto) 0.50 K/uL (0.2-0.8) 04/09/20 15:26 Absolute Eos (auto) 0.40 K/uL (0.0-0.4) 04/09/20 15:26 Absolute Basos (auto) 0.10 K/uL (0.0-0.1) 04/09/20 15:26 Neutrophils % 54.8 % (42.0-78.0) 04/09/20 15:26 Lymphocytes % 36.6 % (20.0-50.0) 04/09/20 15:26 Monocytes % 4.4 % (2.0-9.0) 04/09/20 15:26 Eosinophils % 3.4 % (1.0-5.0) 04/09/20 15:26 Basophils % 0.8 % (0.0-2.0) 04/09/20 15:26 Sodium 139 mmol/L (135-145) 04/09/20 15:26 Potassium 3.8 mmol/L (3.6-5.0) 04/09/20 15:26 Chloride 109 mmol/L (101-111) 04/09/20 15:26 Carbon Dioxide 21 mmol/L (21-31) 04/09/20 15:26 Anion Gap 12.8 (12-18) 04/09/20 15:26 BUN 9 mg/dL (7-18) 04/09/20 15:26 Creatinine 0.70 mg/dL (0.6-1.3) 04/09/20 15:26 BUN/Creatinine Ratio 12.9 (10-20) 04/09/20 15:26 Random Glucose 87 mg/dL (70-105) 04/09/20 15:26 Serum Osmolality 275.6 mOsm/L (275-295) 04/09/20 15:26 Lactic Acid 0.8 mmol/L (0.5-2.2) 04/09/20 15:26 Calcium 8.5 mg/dL (8.4-10.2) 04/09/20 15:26 Total Bilirubin 0.5 mg/dL (0.2-1.0) 04/09/20 15:26 AST 27 IU/L (10-42) 04/09/20 15:26 ALT 33 IU/L (10-60) 04/09/20 15:26 Alkaline Phosphatase 101 IU/L (42-121) 04/09/20 15:26 Troponin I < 0.02 ng/mL (0.01-0.05) 04/09/20 15:26 B-Natriuretic Peptide 164.0 pg/ml (0-100) H 04/09/20 15:26 Serum Total Protein 6.7 gm/dL (6.4-8.2) 04/09/20 15: Albumin 3.5 g/dl (3.2-5.5) 04/09/20 15: Globulin 3.2 gm/dL (2.3-3.5) 04/09/20 15:26 Albumin/Globulin Ratio 1.1 (1.1-1.9) 04/09/20 15:26 Lipase 23 U/L (22-51) 04/09/20 15:26 Serum HCG, Qual Negative (NEGATIVE) 04/09/20 15:27 04/09/20 19:55 PROCEDURE: Abdomen/Pelvis w/Contrast (accession [id number]), Chest w/Contrast (accession [id number]) CLINICAL HISTORY: 50 years Female epigastric abd pain with questionable history of pericardial effusion. COMPARISON: CT abdomen and pelvis study from 12/13/2019. TECHNIQUE: Contiguous axial images obtained through the chest, abdomen and pelvis following IV contrast. Reformatted images obtained. This exam was performed according to our department optimization program which includes automated exposure control, adjustment of the mA and/or kv according to patient size and/or use of iterative reconstruction technique. FINDINGS: There are mildly prominent lymph nodes in the mediastinum likely reactive. No pericardial effusion. No aneurysmal dilatation of the thoracic aorta. There are mild areas of nonspecific groundglass infiltrate in the right upper lung and to a lesser extent in the left upper lung and in the perihilar regions. There is mild interstitial change in the lungs is nonspecific. No pleural effusions. No pneumothorax. There is a nodular lesion in the right middle lobe on axial image 33/67 measuring 0.5 cm in mean diameter. The liver is enlarged measuring approximately 19 cm in length. The spleen and pancreas appear unremarkable. No adrenal masses. The kidneys appear unremarkable. No hydronephrosis. The gallbladder is visualized. There is questionable minimal pericholecystic fluid. No aneurysmal dilatation of the aorta. No bowel obstruction. The appendix is not definitely visualized. Occasional colonic diverticula. No free pelvic fluid. IMPRESSION: No pericardial effusion. There are areas of nonspecific groundglass infiltrate in the lungs which may be related to atelectasis. Infiltrate from other etiology is not excluded. 5.0 mm solid pulmonary nodule. No routine follow-up imaging is recommended. These guidelines do not apply to immunocompromised patients and patients with cancer. Follow up in patients with significant comorbidities as clinically warranted. For lung cancer screening, adhere to Lung-RADS guidelines. Reference: Radiology. 2017; 284(1):228-43. There is questionable minimal pericholecystic fluid. If there is clinical concern for cholecystitis, sonography or nuclear medicine HIDA imaging could be obtained to better evaluate the gallbladder. Other findings as above. Electronically signed by: Neo Monique MD 04/09/2020 7:25 PM CDT 04/09/20 20:00 Pt says pain 0/10 after GI cocktail. Pt not SOB at this time but on 2L home O2. Pt says she is aware of pulmonary nodule. Groundglass infiltrate? seen on CT. COVID test ordered. Pt concerned about being d/c home. Will consult Vandana Garcia to discuss observation. Departure - Departure Clinical Impression: Epigastric abdominal pain, Shortness of breath, Abnormal CT of the chest, Pulmonary nodule Time of Disposition: 00:14 Disposition: Admit Patient Condition: Fair Home Medications: Ambulatory Orders RX: Lisinopril 20 mg PO BID 03/28/18 HYDROcodone 7.5MG/APAP 325MG [[place] 7.5/325] 1 tab PO PRN 02/23/19 RX: Carvedilol 6.25 mg PO BID 02/23/19 Albuterol Sulfate [Albuterol Sulfate Hfa] 2 puff INH Q4HR PRN 04/09/20 Hydrochlorothiazide 25 mg PO DAILY PRN 04/09/20 Ibuprofen [Motrin] 800 mg PO Q4HR PRN 04/09/20 Decision To Admit - Decistion To Admit Decision to Admit Reason: Medical Nature Decision to Admit Date: 04/09/20 Decision to Admit Time: 20:37
--- NOTE | 2020-04-09 16:08 | RAD ---
EXAM DESCRIPTION: Chest,1 View CLINICAL HISTORY: 50 years Female sob, epigastric pain COMPARISON: 12/08/2019. FINDINGS: The study is suboptimal from patient body habitus. The cardiomediastinal silhouette appears unremarkable. It is difficult to totally exclude infiltrates secondary to overlying soft tissues but no gross infiltrate is identified. No pleural effusion. No pneumothorax. IMPRESSION: Suboptimal study from patient body habitus. No gross infiltrate. PA and lateral chest x-ray could be obtained to better evaluate. Electronically signed by: Neo Monique MD 04/09/2020 4:07 PM CDT
[2020-04-09] MEDS ORDERED: ALUM & MAG HYDROX-SIMETHICONE 30 ML, LIDOCAINE VISCOUS 2% 15 ML PO ONE ×2 (18:53)
--- NOTE | 2020-04-09 19:26 | CT ---
PROCEDURE: Abdomen/Pelvis w/Contrast (accession [id number]), Chest w/Contrast (accession [id number]) CLINICAL HISTORY: 50 years Female epigastric abd pain with questionable history of pericardial effusion. COMPARISON: CT abdomen and pelvis study from 12/13/2019. TECHNIQUE: Contiguous axial images obtained through the chest, abdomen and pelvis following IV contrast. Reformatted images obtained. This exam was performed according to our department optimization program which includes automated exposure control, adjustment of the mA and/or kv according to patient size and/or use of iterative reconstruction technique. FINDINGS: There are mildly prominent lymph nodes in the mediastinum likely reactive. No pericardial effusion. No aneurysmal dilatation of the thoracic aorta. There are mild areas of nonspecific groundglass infiltrate in the right upper lung and to a lesser extent in the left upper lung and in the perihilar regions. There is mild interstitial change in the lungs is nonspecific. No pleural effusions. No pneumothorax. There is a nodular lesion in the right middle lobe on axial image 33/67 measuring 0.5 cm in mean diameter. The liver is enlarged measuring approximately 19 cm in length. The spleen and pancreas appear unremarkable. No adrenal masses. The kidneys appear unremarkable. No hydronephrosis. The gallbladder is visualized. There is questionable minimal pericholecystic fluid. No aneurysmal dilatation of the aorta. No bowel obstruction. The appendix is not definitely visualized. Occasional colonic diverticula. No free pelvic fluid. IMPRESSION: No pericardial effusion. There are areas of nonspecific groundglass infiltrate in the lungs which may be related to atelectasis. Infiltrate from other etiology is not excluded. 5.0 mm solid pulmonary nodule. No routine follow-up imaging is recommended. These guidelines do not apply to immunocompromised patients and patients with cancer. Follow up in patients with significant comorbidities as clinically warranted. For lung cancer screening, adhere to Lung-RADS guidelines. Reference: Radiology. 2017; 284(1):228-43. There is questionable minimal pericholecystic fluid. If there is clinical concern for cholecystitis, sonography or nuclear medicine HIDA imaging could be obtained to better evaluate the gallbladder. Other findings as above. Electronically signed by: Neo Monique MD 04/09/2020 7:25 PM CDT
[2020-04-09] MEDS ORDERED: metroNIDAZOLE IV PREMIX 500MG 500 MG in PREMIX BAG 1 BAG IVPB ONE (20:36)
[2020-04-09] MEDS ORDERED: levoFLOXacin 500MG IV 500 MG in PREMIX BAG 1 BAG IVPB ONE (20:36)
[2020-04-09] MEDS ORDERED: ONDANSETRON INJ 4 MG/2 ML VIAL IV PRN (22:13)
[2020-04-09] MEDS ORDERED: SODIUM CHLORIDE 0.9% (FLUSH) 10 ML SYG IV PRN (22:13)
[2020-04-09] MEDS ORDERED: PROMETHAZINE HCL INJ 25 MG in SODIUM CHLORIDE 0.9% 50ML 50 ML IVPB PRN (22:20)
[2020-04-09] MEDS ORDERED: KCL 20MEQ/0.45% NS 1,000 ML IVS ONE (22:24)
[2020-04-09] MEDS ORDERED: ALBUTEROL INHALER 64 PUFF/8GM INH PRN (22:25)
[2020-04-09] MEDS ORDERED: IV SET AND CAP CHANGE INJ INJ SCH (22:30)
[2020-04-09] MEDS ORDERED: levoFLOXacin 500MG IV 0 ML IVPB ONE (22:38)
[2020-04-09] MEDS: CARVEDILOL 3.125 MG TAB PO SCH (22:45)
[2020-04-09] MEDS: ALBUTEROL INHALER 64 PUFF/8GM INH SCH (22:55)
[2020-04-09] MEDS: fentaNYL CITRATE INJ 50 MCG/ML AMP IV PRN (23:39)
[2020-04-10] MEDS: fentaNYL CITRATE INJ 50 MCG/ML AMP IV PRN ×2 (04:41→08:51)
[2020-04-10] MEDS ORDERED: PANTOPRAZOLE SODIUM IV 40 MG VIAL IV SCH (06:30)
[2020-04-10] MEDS: ALBUTEROL INHALER 64 PUFF/8GM INH SCH ×2 (07:30→11:40)
[2020-04-10] MEDS ORDERED: SODIUM CHLORIDE 0.9% (FLUSH) 10 ML SYG IV SCH (09:00)
[2020-04-10] MEDS: CARVEDILOL 3.125 MG TAB PO SCH (09:45)
--- NOTE | 2020-04-10 09:59 | SSS ---
SUPERVISING PHYSICIAN: Mick Suggs MD CHIEF COMPLAINT: Epigastric abdominal pain. HISTORY OF PRESENT ILLNESS: This is a 50-year-old female who woke up about 3 o'clock in the morning yesterday with a complaint of epigastric abdominal pain. She states it was sharp in nature and did not radiate to either side. It waxed and waned. It was not related to eating. Nothing made it better or worse. It would come and go. Therefore, she came to the Emergency Room. In the ER, she was evaluated with a CT scan of the abdomen and pelvis which showed a little bit of pericholecystic fluid and an ultrasound was ordered for today. There are concerns for cholecystitis. However, she also had incidental finding of ground glass infiltrates in the lungs. She therefore had a CT scan of the chest which showed 5 mm pulmonary nodule and ground glass appearance. She states she has a step-daughter who tested positive for COVID-19 and is in isolation. She does not live with them, but there has been some contact. The patient states personally she has tested negative three times, but they do have one pending here at this time. In the ER, she was given Levaquin and Flagyl. She also was noted to an elevated BNP at 164. Therefore, an echocardiogram was ordered today. Currently, she is not really having any significant pain. She did during the ultrasound, but nothing at the moment. She states she did have some shortness of breath, she also has a history of chronic obstructive pulmonary disease and is on Symbicort and albuterol. PAST MEDICAL HISTORY: 1. Chronic obstructive pulmonary disease. 2. Hypertension. 3. Venous stasis. PAST SURGICAL HISTORY: 1. Umbilical hernia repair. 2. Left ankle surgery. 3. Two C-sections. HOME MEDICATIONS: 1. Albuterol 2 puffs q.4h. p.r.n. 2. Carvedilol 6.25 mg p.o. b.i.d. 3. Hydrochlorothiazide 25 mg p.o. daily. 4. Hydrocodone 1 tab p.r.n. for pain. 5. Motrin 800 mg every 4 hours p.r.n. pain. 6. Lisinopril 20 mg p.o. b.i.d. ALLERGIES: ERYTHROMYCIN, HYDROMORPHONE, KETORALAC, MORPHINE, PENICILLINS, IMITREX. FAMILY HISTORY: Positive for hypertension and chronic obstructive pulmonary disease. SOCIAL HISTORY: The patient smoked 1.5 packs of cigarettes a day since the age of 14, but quit one month ago. No alcohol, no illicit drugs. REVIEW OF SYSTEMS: CONSTITUTIONAL: No fever or chills. No recent weight loss or weight gain. HEENT: No headaches, vision changes, ear pain, nasal congestion or throat pain. RESPIRATORY: Positive for some shortness of breath, occasional cough. CARDIOVASCULAR: No chest pain, palpitations. She does have peripheral edema. GASTROINTESTINAL: No nausea, vomiting, diarrhea, constipation, but positive for epigastric abdominal pain. GENITOURINARY: No dysuria, frequency or flank pain. MUSCULOSKELETAL: No muscle cramps, joint pain or joint swelling. ENDOCRINE: No polydipsia, polyuria or polyphagia. No heat or cold intolerance. HEMATOLOGIC: No easy bruising and no transfusion reaction. NEUROLOGIC: No syncope, paresthesias or seizures. PHYSICAL EXAMINATION: VITAL SIGNS: Blood pressure 131/76, heart rate 71, respiratory rate 20, temperature 98.1, oxygen saturation 94%. GENERAL: Ms. Aden is a 50-year-old female in no active distress. NEUROLOGIC: The patient is alert and oriented. LUNGS: Clear to auscultation bilaterally, but diminished in the bases. CARDIOVASCULAR: Regular rate and rhythm. Normal S1, S2. ABDOMEN: Obese, soft. Positive bowel sounds. Positive for epigastric tenderness to palpation. GENITOURINARY: Deferred. EXTREMITIES: Lower extremities with trace ankle edema. Pulses 2+. Capillary refill is less than 2 seconds. LABORATORY: Chemistry is pretty much unremarkable. She had an elevated white count of 11.2 yesterday with no left shift with a normal white count this morning. UA was negative. As stated before, her BNP was elevated at 164. RADIOLOGY: As per history of present illness. ASSESSMENT: 1. Epigastric abdominal pain. 2. Elevated BNP. 3. Hypertension. 4. Chronic obstructive pulmonary disease with no acute exacerbation. 5. Pending COVID-19 testing. PLAN: At this time, the patient is awaiting her ultrasound result. Also, echocardiogram has been done. Pending these results, she may or may not need a surgical consultation. Also, some of this may be able to be done as an outpatient. I will update the short stay summary if she is discharged today manually. We will continue her home medications and provide a diet after we have ultrasound results if it is warranted. We are awaiting COVID-19 results as well. Once again, this will be her fourth testing. I will also get a test on her as she is sexually active and still has a period and her last period ended on April 02. ADDENDUM: Echocardiogram results showed EF of 55% with mild LVH. Abdominal sonogram showed gallbladder wall thickening with recommendations for HIDA scan. I called radiology and the soonest a HIDA scan could be done is Friday. Therefore, this was scheduled for Friday at 8:30. I also spoke with Dr. Hoffmann, and he agreed to see the patient as outpatient. This was scheduled for Friday at 9:40am. I gave the patient a diet, and she ate it all with no nausea. She still has mild epigastric discomfort, but not like it was when she came to the ER. Therefore, I will discharge her home and she will have the scan and appointment with Dr. Hoffmann. She still is being ruled out COVID-19 again, so will need to self-quarantine until results are known. #[id number] [facility]
--- NOTE | 2020-04-10 11:08 | US ---
EXAM DESCRIPTION: Abdomen,Complete: Ultrasound. CLINICAL HISTORY: 50 years Femaleabd pain COMPARISON: None Available. TECHNIQUE: Transabdominal scanning: grayscale and Doppler modes.. Technically difficult study due to patient large body habitus. FINDINGS: Gallbladder: normal size, shape, echogenicity; no intraluminal stones or sludge. No fluid around the gallbladder. Wall thickening 4.1 mm Non-tender with transducer pressure. Common bile duct: caliber 4.5 mm within normal limits. Liver: Heterogeneously increased echogenicity; contour liver capsule smooth where seen. No fluid around the liver. Intrahepatic biliary ducts normal caliber. Doppler hepatopedal flow and normal caliber portal vein. 15 mm caliber. Long axis right lobe 19.4 cm. Pancreas: normal size and echogenicity. Duct not seen. Proximal abdominal aorta: Normal caliber from the proximal segment to the distal bifurcation.. IVC: visualized and normal caliber. Right kidney: long axis measures 9.8 cm. Normal cortical Echogenicity. 10 mm cortical thickness. No echogenic stones or hydronephrosis. Left kidney: long axis measures 9.0 cm. Normal cortical Echogenicity. 11 mm cortical thickness. No echogenic stones or hydronephrosis. Spleen: Normal echogenicity. 10.7 cm Long axis. No ascites. IMPRESSION: 1. Enlarged liver with steatosis. Ducts and vascularity unremarkable. Smooth capsule with no ascites. Pancreas is negative. 2. Thick-walled gallbladder without stones could represent chronic cholecystitis or gallbladder dyskinesia. Consider hepatobiliary radionuclide gallbladder ejection fraction study. Normal caliber of the common bile duct. 3. Bilateral kidneys with thinning of the cortex but normal echogenicity, no stones or hydronephrosis. Spleen is unremarkable. Normal caliber of the abdominal aorta and IVC. Electronically signed by: Chintan Maldonado MD 04/10/2020 11:06 AM CDT
[2020-04-10 15:13] VITALS: BP 131/76; TEMP 98; O2SAT 95
== END 2020-04-10 15:35 | disposition home or self-care (01) ==
LOC: ER 14:56 → MS 22:07
PROVIDERS: ADMIT Nurse Practitioner Acute Care; ATTEND Nurse Practitioner
DX: R10.13 Epigastric pain (principal); R79.89 Other specified abnormal findings of blood chemistry; I10 Essential (primary) hypertension; J44.9 Chronic obstructive pulmonary disease, unspecified; R91.1 Solitary pulmonary nodule; R06.02 Shortness of breath; I87.8 Other specified disorders of veins; I34.0 Nonrheumatic mitral (valve) insufficiency; I36.1 Nonrheumatic tricuspid (valve) insufficiency; R16.0 Hepatomegaly, not elsewhere classified; K76.0 Fatty (change of) liver, not elsewhere classified; Z20.828 Contact with and (suspected) exposure to other viral communicable diseases; Z79.51 Long term (current) use of inhaled steroids; Z79.899 Other long term (current) drug therapy; Z87.891 Personal history of nicotine dependence; Z82.49 Family history of ischemic heart disease and other diseases of the circulatory system; Z82.5 Family history of asthma and other chronic lower respiratory diseases; Z88.0 Allergy status to penicillin; Z88.3 Allergy status to other anti-infective agents; Z88.6 Allergy status to analgesic agent; Z88.5 Allergy status to narcotic agent; Z88.8 Allergy status to other drugs, medicaments and biological substances
CPT/HCPCS: 96366 ×2; 96367; 96365; 96375 ×2; 96376 ×2; J3010 ×5; J1956; J3490; J2405; A4216; J3480; 80053 ×2; 36415; 81001; 85025 ×2; 87040; 84703; 83690; 84484; 83880; 83605; 71045; 71260; 74177; 76700; 94760; 94640; 99285; 93306; 93005; G0378; U0002

== ENCOUNTER 2020-04-20 07:30 | Day surgery (SDC) | payer BC ==
[~2020-04-20 07:30] MED LIST: DEXAMETHASONE INJ 10 MG/ML VIAL ONE; LACTATED RINGERS 1,000 ML ONE; LEVALBUTEROL NEBS 1.25 MG/3 ML VIAL NEB ONE; LIDOCAINE 1% 10 ML VIAL INJ ONE; ONDANSETRON INJ 4 MG/2 ML VIAL ONE; PROPOFOL 200 MG/20 ML VIAL IV ONE
[2020-04-20] MEDS ORDERED: SUGAMMADEX SODIUM 200 MG/2 ML VIAL IV ONE (07:36)
[2020-04-20] MEDS ORDERED: MIDAZOLAM INJ 2 MG/2 ML VIAL ONE (07:37)
[2020-04-20] MEDS ORDERED: fentaNYL CITRATE INJ 50 MCG/ML AMP ONE ×2 (07:37→10:13)
[2020-04-20] MEDS ORDERED: ROCURONIUM BROMIDE 10 MG/ML VIAL ONE (07:37)
[2020-04-20] MEDS ORDERED: SCOPOLAMINE PATCH 1.5MG 1 EA TD ONE (07:45)
[2020-04-20] MEDS ORDERED: LEVALBUTEROL NEBS 1.25 MG/3 ML VIAL NEB ONE ×2 (08:14→10:06)
[2020-04-20] MEDS ORDERED: BUPIVACAINE 0.5% W/EPI 30 ML VIAL INJ ONE (08:15)
[2020-04-20] MEDS ORDERED: fentaNYL CITRATE INJ 50 MCG/ML AMP IV ONE ×2 (10:15→10:20)
--- NOTE | 2020-04-20 10:29 | OP ---
DATE OF PROCEDURE: 04/20/20 PREOPERATIVE DIAGNOSIS: 1. Biliary dyskinesia/sludge. POSTOPERATIVE DIAGNOSIS: 1. Biliary dyskinesia/sludge. PROCEDURE: 1. Laparoscopic cholecystectomy. SURGEON: Mick Hoffmann MD. ANESTHESIA: General and local. FINDINGS: The gallbladder showed evidence of mild chronic inflammation. COMPLICATIONS: None. ESTIMATED BLOOD LOSS: Minimal. SPECIMEN: Gallbladder. PLAN: Discharge. INDICATION: The patient has a history of right upper quadrant pain. No gallstones. She had a HIDA scan that actually showed normal fraction. She experienced severe pain during the exam. We discussed this and got complete consent. Although the HIDA was normal and ultrasound was normal, we have had many cases where people had pain that was relieved after gallbladder removal, especially when they experienced pain during the induction either due to tiny duct size or an experience sometimes of very thick bile. She understood and wished to proceed. PROCEDURE: The patient was brought to the Operating Suite in supine position. General anesthesia was induced. The patient was prepped and draped in sterile fashion. Marcaine 0.5% with epinephrine was used at all incision sites. While maintaining upward traction, a osmin was made superior to the umbilicus. She had a previous hernia repair. Veress needle was introduced. I felt two nice pops with fluid going in, but difficulty insufflating overall, probably from adhesion underneath, so I made another incision a little bit higher and we got the Veress needle in and were able to insufflate, but only mildly. It would not insufflate well, so I put Visiport through that very same area into the abdomen without difficulty, insufflated and examined. There was no evidence of bleeding or bowel injury. We saw where we put the previous Veress needle. It was in an adhesion. No evidence of bowel. We positioned her and placed the additional ports under direct visualization. The gallbladder retracted superiorly and laterally. The infundibulum was grasped. The infundibular structures were dissected free. The duct and artery were clearly visualized through the triangle of Calot. Each was triply ligated as was the artery. The gallbladder was then dissected off the fossa in toto and removed in the EndoCatch bag. The fossa was examined. It remained hemostatic. The clips were intact. There was no bleeding or bile leakage. The subxiphoid fascia was then closed with 0 Vicryl using the suture passer. It was airtight and non-bleeding. The remaining trocars were removed. There was no bleeding from the trocar sites. The wounds were irrigated and closed with Monocryl. Dressings were applied. The patient was awakened and taken to Recovery be discharged. #[id number] cc: Issac Conde MD [facility]
[2020-04-20] MEDS ORDERED: HYDROcodone 5MG/APAP 325MG 1 EA TAB ONE (10:47)
[2020-04-20] MEDS ORDERED: LACTATED RINGERS 1,000 ML IVS ONE ×2 (10:50)
[2020-04-20] MEDS ORDERED: SODIUM CHLORIDE 0.9% 100ML 100 ML IVPB ONE (11:00)
[2020-04-20] MEDS ORDERED: PROMETHAZINE HCL INJ 25 MG/ML VIAL ONE (11:00)
[2020-04-20] MEDS ORDERED: HYDROcodone 5MG/APAP 325MG 1 EA TAB PO ONE (11:03)
[2020-04-20] MEDS ORDERED: PROMETHAZINE HCL INJ 25 MG/ML VIAL IVPB ONE (11:05)
[2020-04-20 11:54] VITALS: O2SAT 93
[2020-04-20 14:01] VITALS: BP 131/78; TEMP 96.8
== END 2020-04-20 14:00 | disposition home or self-care (01) ==
LOC: AMB 07:30
PROVIDERS: ATTEND Surgery
DX: K81.1 Chronic cholecystitis (principal); J44.9 Chronic obstructive pulmonary disease, unspecified; I10 Essential (primary) hypertension; E66.9 Obesity, unspecified; G89.29 Other chronic pain; E66.01 Morbid (severe) obesity due to excess calories; Z88.1 Allergy status to other antibiotic agents; Z88.5 Allergy status to narcotic agent; Z88.0 Allergy status to penicillin; Z79.899 Other long term (current) drug therapy; Z87.891 Personal history of nicotine dependence
CPT/HCPCS: 00790; 47562; J1100; J2250; J2405; J2550; J3010; J3490; J7050; J7120; J7614